=== PATIENT | female | born 1960 | race Caucasian/White ===

== ENCOUNTER → 2018-07-08 13:45 | Outpatient (CLI) | payer MEDICAID, SELFPAY ==
--- NOTE | 2018-07-08 13:50 | CT_ITS ---
STUDY: CT MAXILLOFACIAL SINUSES REASON FOR EXAM: Female, 57 years old. Sinusitis. History of prior sinus surgery. RADIATION DOSAGE (If Supplied By Facility): CTDIvol = ( 33.45 ) mGy, DLP = ( 751.28 ) mGycm TECHNIQUE: The patient was scanned in a multi detector CT scanner. High resolution axial imaging was performed without the administration of intravenous contrast material. Sagittal and coronal images were reconstructed. Individualized dose optimization techniques were used for this CT. COMPARISON: None. FINDINGS: FRONTAL SINUSES: Normal aeration, without mucosal inflammatory disease. ETHMOIDAL SINUSES: Mild degree of mucosal thickening of the ethmoid sinuses bilaterally. MAXILLARY SINUSES: Normal aeration, without mucosal inflammatory disease. SPHENOIDAL SINUSES: Normal aeration, without mucosal inflammatory disease. There is patency of the bilateral maxillary infundibuli with normal uncinate processes, ethmoid bullae, and hiatus semilunaris. Normal bilateral middle turbinates. Normal bilateral inferior turbinates. Normal midline nasal septum. There is patency of the bilateral nasal airways. The visualized osseous structures are normal. The visualized bilateral orbital contents are normal. CT/Sinus/Facial Bone IMPRESSION: Mild degree of mucosal thickening of the ethmoid sinuses bilaterally. Electronically Signed: Fito Preciado MD at 15:16 EDT Tel [phone], Service support ,
== END ==
PROVIDERS: Family Provider Nurse Practitioner Adult Health; PCP Nurse Practitioner Adult Health; Referring Provider Otolaryngology Otolaryngology/Facial Plastic Surgery; Visit Provider Otolaryngology Otolaryngology/Facial Plastic Surgery
DX: J32.9 Chronic sinusitis, unspecified (principal)
CPT/HCPCS: 70486

== ENCOUNTER 2018-08-13 22:41 | Emergency (ER) | payer MEDICAID, SELFPAY ==
[2018-08-13 22:42] VITALS: BP 149/77; PULSE 92; RESP 28; TEMP 36.9; O2SAT 97; BMI 25.9
--- NOTE | 2018-08-13 23:10 | RAD_ITS ---
STUDY: X-RAY - UNILATERAL RIBS ( LEFT ) WITH CHEST REASON FOR EXAM: Female, 58 years old. Left lower back and rib pain after coughing TECHNIQUE - RIBS: 4 view(s) of the ribs. TECHNIQUE - CHEST: Single frontal view of the chest. COMPARISON: None. FINDINGS - RIBS: Minimal irregularity along the anterior left eighth rib. FINDINGS - CHEST: There is hyperinflation of the lungs consistent with chronic obstructive lung disease (COPD). There is no demonstrated pleural abnormality. Normal size heart. Normal mediastinum and shahrzad. Normal visualized pulmonary arteries. There is atherosclerotic calcification of the aortic arch with tortuosity. There are diffuse degenerative changes of the visualized thoracic spine. Mild loss of vertebral body height at the lower thoracic spine. There is demineralization of osseous structures . Normal visualized ribs, clavicles, and shoulders. There is no demonstrated abnormality of the visualized soft tissue structures of the upper abdomen. RAD/Ribs Uni Min 3V w/PA Chest IMPRESSION: RIBS: Irregularity along the left eighth rib may be due to a nondisplaced fracture versus remote injury. No acute displaced rib fractures detected. CHEST: COPD. Osteoporosis, degenerative changes, loss of vertebral body height of the lower thoracic spine. Electronically Signed: Cathie Laura MD at 0:54 EST , Service support ,
[2018-08-13] MEDS: oxyCODONE 5 MG Tablet PO (23:53)
[2018-08-13] MEDS: diazePAM 5 MG Tablet PO (23:53)
--- NOTE | 2018-08-14 00:02 | ED.VISSUMM ---
- ER Visit Summary Date of Service: 08/14/18 Chief Complaint: Back pain History of Present Illness: The patient is a 58 F who developed a back spasm after coughing while lying in bed 10 days ago. Patient states she had spasm recur again 3 days later. She has been taking ibuprofen. She states her back remains sore but she is been able to function. She twisted together car tonight and cleared her throat and felt tight spasm in her left back. She denies pain radiating into her legs. There is no direct trauma to her back. Physical Examination: Vital signs unremarkable other than respiratory rate of 28. Patient is standing at bedside. She appears uncomfortable but no acute distress. Head neck examination is unremarkable. Heart is regular rate and rhythm. Lung sounds are clear. Abdomen is soft and nontender. No palpable pulsatile masses. Back examination was reproducible tenderness in the thoracic and lumbar paraspinal muscles. There is no midline tenderness. Neuro exam reveals good strength and sensation. Test Results: Rib series with chest x-ray shows no evidence of pneumothorax. No obvious displaced rib fracture per my read. Emergency Department Course and Treatment: Patient had taken 600 mg of ibuprofen prior to arrival. She was given 1 tab of oxycodone and 5 mg of p.o. Valium. Test results are discussed with patient at bedside. She will continue ibuprofen at home and be given prescriptions for Percocet and Valium. Treatment Plan: [] Disposition: Discharge Impression: Thoracic and lumbar paraspinal spasm This note was generated with [employer] dictation software. It may contain incorrect words, spelling, and punctuation that were not noted in review of the chart prior to signing ED Disposition - Plan for ED Patient: Chief Complaint: Back Referrals: Radha Blakely NP-C [Primary Care Provider] -
--- NOTE | 2018-08-14 00:05 | ED.DCSUM_ITS ---
- ER Visit Summary Date of Service: 08/14/18 Chief Complaint: Back pain History of Present Illness: The patient is a 58 F who developed a back spasm after coughing while lying in bed 10 days ago. Patient states she had spasm recur again 3 days later. She has been taking ibuprofen. She states her back remains sore but she is been able to function. She twisted together car tonight and cleared her throat and felt tight spasm in her left back. She denies pain radiating into her legs. There is no direct trauma to her back. Physical Examination: Vital signs unremarkable other than respiratory rate of 28. Patient is standing at bedside. She appears uncomfortable but no acute di stress. Head neck examination is unremarkable. Heart is regular rate and rhythm. Lung sounds are clear. Abdomen is soft and nontender. No palpable pulsatile masses. Back examination was reproducible tenderness in the thoracic and lumbar paraspinal muscles. There is no midline tenderness. Neuro exam reveals good strength and sensation. Test Results: Rib series with chest x-ray shows no evidence of pneumothorax. No obvious displaced rib fracture per my read. Emergency Department Course and Treatment: Patient had taken 600 mg of ibuprofen prior to arrival. She was given 1 tab of oxycodone and 5 mg of p.o. Valium. Test results are discussed with patient at bedside. She will continue ibuprofen at home and be given prescriptions for Percocet and Valium. Treatment Plan: [] Disposition: Discharge Impression: Thoracic and lumbar paraspinal spasm This note was generated with Tractive dictation software. It may contain incorrect words, spelling, and punctuation that were not noted in review of the chart prior to signing ED Disposition - Plan for ED Patient: Chief Complaint: Back Referrals: Radha Blakely, LEONARDA-C [Primary Care Provider] -
--- NOTE | 2018-08-14 00:05 | ED.DEP ---
ED Disposition - Plan for ED Patient: Disposition: Home or Assisted Living Chief Complaint: Back Instructions: ED Spasm Back No Trauma Prescriptions: Oxycodone HCl/Acetaminophen [Percocet 5/325] 1 tablet PO Q6H PRN PRN 3 Days #12 tablet PRN Reason: Pain Diazepam [Valium] 5 mg PO Q8 PRN #10 tablet PRN Reason: Muscle Spasm Referrals: Radha Blakely NP-C [Primary Care Provider] - 1-2 Weeks
[2018-08-14 00:37] VITALS: BP 141/72; PULSE 67; RESP 18; O2SAT 97
== END 2018-08-14 00:38 | disposition home or self-care (01) ==
PROVIDERS: Emergency Provider Emergency Medicine; Family Provider Family Medicine; PCP Family Medicine
DX: M62.830 Muscle spasm of back (principal); Z72.0 Tobacco use
CPT/HCPCS: 71101; 99283

== ENCOUNTER → 2018-10-25 16:20 | Outpatient (CLI) | payer MEDICAID, SELFPAY | PROVIDERS: Family Provider Family Medicine; PCP Family Medicine; Referring Provider Otolaryngology Otolaryngology/Facial Plastic Surgery; Visit Provider Otolaryngology Otolaryngology/Facial Plastic Surgery | DX: J02.9 Acute pharyngitis, unspecified (principal); J32.9 Chronic sinusitis, unspecified | CPT/HCPCS: 87070 ==

== ENCOUNTER → 2019-01-10 | Outpatient (CLI) | payer MEDICAID, SELFPAY ==
[2019-01-10 14:15] LABS: Absolute Lymphocyte Count 2.82 X10^3/ul (0.83-4.51); Absolute Neutrophil Count 7.4 X10^3/uL (2.0-7.7); Basophil# 0.04 X10^3/uL; Basophil% 0.3 % (0-1); Eosinophil# 0.38 X10^3/uL; Eosinophils% 3.3 % (0-5); Hematocrit 43.4 % (37-47); Hemoglobin 14.3 g/dl (12.0-15.0); Lymphocyte # 2.82 X10^3/ul (4.0); Lymphocyte % 24.6 % (19-41); Mean Corp Hgb Conc 32.9 g/gl (32-36); Mean Corpuscular Hgb 29.2 pg (27.0-32.0); Mean Corpuscular Volume 88.8 fL (81-99); Mean Platelet Vol. 10.1 fl (6.2-12.0); Monocyte# 0.78 X10^3/uL; Monocyte% 6.8 % (0-10); Neutrophil # 7.43 X10^3/uL (2.7-7.7); Neutrophil % 64.7 % (47-70); POSITIVE COUNT NO; POSITIVE DIFFERENTIAL NO; POSITIVE MORPHOLOGY NO; Platelet Count 283 K/mm3 (150-450); RBC Distribution Width CV 15.1 % (11.6-14.6); RBC Distribution Width SD 48.9 fl (35.1-43.9); Red Blood Count 4.89 M/mm3 (4.2-5.4); White Blood Count 11.5 K/mm3 (4.4-11.0)
[2019-01-10 14:39] LABS: ALB/GLOB Ratio 1.2 RATIO (0.9-2.4); AST(SGOT) 13 U/L (15-37); Alanine Aminotransfer ALT/SGPT 18 U/L (13-56); Albumin, Serum 3.9 g/dL (3.2-5.0); Alkaline Phosphatase 57 U/L (45-117); Anion Gap 8 (5-15); BUN 13 mg/dL (7-18); BUN/Creat Ratio 16.2 RATIO (10-20); Calcium,Total 8.4 mg/dL (8.5-10.1); Chloride 106 mmol/L (98-107); EST Glomerular Filtration Rate 78 mL/min (>60); Est Glom Filt Rate - Afr Amer 95 mL/min (>60); Globulin 3.3 g/dL (2.2-4.2); Glucose 88 mg/dL (74-106); Potassium 3.7 mmol/L (3.5-5.1); Protein, Total 7.2 g/dL (6.4-8.2); Sodium Level 139 mmol/L (136-145); Thyroid Stim Hormone (TSH) 1.79 uIU/mL (0.358-3.74)
== END | disposition home or self-care (01) ==
LOC: BFHLAB 11:29
PROVIDERS: Family Provider Family Medicine; PCP Family Medicine; Visit Provider Family Medicine
DX: G47.00 Insomnia, unspecified (principal); R53.83 Other fatigue; J30.2 Other seasonal allergic rhinitis
CPT/HCPCS: 36415; 80053; 84443; 85025

== ENCOUNTER → 2019-01-30 14:42 | Outpatient (CLI) | payer MEDICAID, SELFPAY ==
[2019-02-04 16:13] LABS: HPV Reflexed? NOT INDICATED
== END ==
PROVIDERS: Family Provider Family Medicine; PCP Family Medicine; Visit Provider Family Medicine
DX: Z12.4 Encounter for screening for malignant neoplasm of cervix (principal)
CPT/HCPCS: 88175; G0145

== ENCOUNTER → 2019-03-10 | Outpatient (CLI) | payer MEDICAID, SELFPAY | END | disposition home or self-care (01) | LOC: LABSPEC 15:30 | PROVIDERS: Family Provider Family Medicine; PCP Family Medicine; Referring Provider Otolaryngology Otolaryngology/Facial Plastic Surgery; Visit Provider Otolaryngology Otolaryngology/Facial Plastic Surgery | DX: J02.9 Acute pharyngitis, unspecified (principal) | CPT/HCPCS: 87070 ==

== ENCOUNTER → 2019-04-07 | Outpatient (CLI) | payer MEDICAID, SELFPAY ==
[2019-03-24 13:20] VITALS: BMI 25.9
== END | disposition home or self-care (01) ==
LOC: LABSPEC 15:34
PROVIDERS: Family Provider Family Medicine; PCP Family Medicine; Referring Provider Otolaryngology Otolaryngology/Facial Plastic Surgery; Visit Provider Otolaryngology Otolaryngology/Facial Plastic Surgery
DX: J32.9 Chronic sinusitis, unspecified (principal); J02.9 Acute pharyngitis, unspecified
CPT/HCPCS: 87070

== ENCOUNTER → 2019-09-01 11:05 | Outpatient (CLI) | payer MEDICAID, SELFPAY ==
[2019-03-24 13:20] VITALS: BMI 25.9
--- NOTE | 2019-09-01 11:08 | US_ITS ---
STUDY: ULTRASOUND OF THE FEMALE PELVIS - COMPLETE REASON FOR EXAM: Female, 59 years old. Left lower quadrant pain. LMP: Unknown. TECHNIQUE: Transabdominal. The patient refused transvaginal exam. TECHNICAL QUALITY: Limited. Examination limited by bowel gas. COMPARISON: None. FINDINGS: The uterus is anteverted and is tilted to the left side of the pelvis. The uterus measures 4.9 x 3.7 x 2.5 cm. Normal uterine cervix. The endometrium is not visualized. Suboptimally seen uterine myometrium with nonspecific diffuse heterogeneity. I.U.D. - The patient does not have an I.U.D. Bilateral ovaries are not visualized. There is no fluid in the cul-de-sac. The pre void volume of the bladder was 69.8 ml. US/Pelvic (Non ) IMPRESSION: Suboptimal exam with only small part of the uterus seen. Recommend follow-up with MRI of the pelvis in nonacute setting. Electronically Signed: Keyana Cochran MD at 22:59 EST , Service support ,
== END ==
PROVIDERS: Family Provider Family Medicine; PCP Family Medicine; Referring Provider Family Medicine; Visit Provider Family Medicine
DX: R10.32 Left lower quadrant pain (principal)
CPT/HCPCS: 76856

== ENCOUNTER → 2020-11-17 12:35 | Outpatient (CLI) | payer MEDICAID, SELFPAY ==
[2019-03-24 13:20] VITALS: BMI 25.9
--- NOTE | 2020-11-17 12:39 | RAD_ITS ---
STUDY: X-RAY CHEST REASON FOR EXAM: Female, 60 years old. sob, COVID neg TECHNIQUE: Frontal and lateral views of the chest. COMPARISON: None. FINDINGS: There is hyperinflation of the lungs consistent with chronic obstructive lung disease (COPD). There is no demonstrated pleural abnormality. Normal size heart. Normal mediastinum and shahrzad. Normal visualized pulmonary arteries. Normal visualized aortic arch and descending thoracic aorta. There is an increased kyphosis of the thoracic spine. There is degenerative osteoarthritis of the bilateral shoulders. There is no demonstrated abnormality of the visualized soft tissue structures of the upper abdomen. RAD/Chest PA and Lateral IMPRESSION: Degenerative changes, as described above. No demonstrated acute cardiopulmonary process. Electronically Signed: Oumar Gleason MD at 2:36 EST Tel , Service support ,
[2020-11-17 15:13] LABS: Absolute Lymphocyte Count 2.74 X10^3/uL (0.83-4.51); Basophil# 0.07 X10^3/uL; Basophil% 0.7 % (0-1); Eosinophil# 0.26 X10^3/uL; Eosinophils% 2.7 % (0-5); Hematocrit 42.1 % (37-47); Hemoglobin 13.7 g/dL (12.0-15.0); Lymphocyte # 2.74 X10^3/ul (4.0); Lymphocyte % 28.1 % (19-41); Mean Corp Hgb Conc 32.5 g/dL (32-36); Mean Corpuscular Hgb 28.4 pg (27.0-32.0); Mean Corpuscular Volume 87.3 fL (81-99); Mean Platelet Vol. 10.5 fl (6.2-12.0); Monocyte# 0.63 X10^3/uL; Monocyte% 6.5 % (0-10); NRBC Flagged by Analyzer 0 % (0-5); Neutrophil # 6.03 X10^3/uL (2.7-7.7); Neutrophil % 61.7 % (47-70); Platelet Count 310 K/mm3 (150-450); RBC Distribution Width CV 14.4 % (11.6-14.6); Red Blood Count 4.82 M/mm3 (4.2-5.4); White Blood Count 9.8 K/mm3 (4.4-11.0)
[2020-11-17 16:33] LABS: Thyroid Stim Hormone (TSH) 1.43 uIU/mL (0.358-3.74)
== END ==
PROVIDERS: PCP Family Medicine; Referring Provider Family Medicine; Visit Provider Family Medicine
DX: J40 Bronchitis, not specified as acute or chronic (principal); R53.83 Other fatigue
CPT/HCPCS: 36415; 71046; 84443; 85025

== ENCOUNTER → 2021-09-07 15:29 | Outpatient (CLI) | payer MEDICAID, SELFPAY | PROVIDERS: PCP Family Medicine; Visit Provider Otolaryngology Otolaryngology/Facial Plastic Surgery | DX: J32.8 Other chronic sinusitis (principal) | CPT/HCPCS: 87070; 87205 ==

== ENCOUNTER → 2021-09-14 15:27 | Outpatient (CLI) | payer MEDICAID, SELFPAY | PROVIDERS: PCP Family Medicine; Referring Provider Family Medicine; Visit Provider Family Medicine | DX: Z20.828 Contact with and (suspected) exposure to other viral communicable diseases (principal) | CPT/HCPCS: 87635; U0005; U0003 ==

== ENCOUNTER 2022-01-03 09:33 | Outpatient (CLI) | payer MEDICAID, SELFPAY | END 2022-01-03 23:59 | disposition home or self-care (01) | LOC: LABSPEC 09:36 | PROVIDERS: PCP Family Medicine; Visit Provider Family Medicine | DX: Z20.822 Contact with and (suspected) exposure to COVID-19 (principal) | CPT/HCPCS: 87635; U0003; U0005 ==

== ENCOUNTER → 2022-01-20 | Outpatient (CLI) | payer MEDICAID, SELFPAY ==
--- NOTE | 2022-01-20 14:11 | CT_ITS ---
STUDY: LOW DOSE CT LUNG CANCER SCREENING REASON FOR EXAM: Female, 61 years old. Patient smoked 1 pack per day for 30 years. RADIATION DOSAGE (If Supplied By Facility): CTDIvol = ( 2.34 ) mGy, DLP = ( 83.19 ) mGycm TECHNIQUE: No contrast was administered. Low dose technique was utilized (average mAS-38 and kVp 120). 1.25 mm axial source images with a slice interval of 1.25-mm were reconstructed in lung windows. 2.5 mm axial source images with a slice interval of 2.5-mm were reconstructed in lung windows. 5.0 mm axial source images with a slice interval of 5.0-mm were reconstructed in soft tissue windows. COMPARISON: None. NODULES: There is a 9.2 mm x 6 mm pleural-based nodular density in the lateral aspect of the right lower lobe as seen on axial image #20 and 15 and coronal image #51. This may represent a focal area of scarring. Emphysema: Hyperinflation. Diffuse emphysematous changes more prominent in the upper lobes. Mild scarring at the lung bases. Endobronchial lesion: None Aorta: Atherosclerotic plaque formation of the aortic arch. CORONARY ARTERIES: Coronary artery calcification Heart: Unremarkable Pulmonary artery: Unremarkable Mediastinal nodes: Small mediastinal lymph nodes. Other chest and abdominal findings: CT/Low Dose CT Lung Screening IMPRESSION: Lung-RADS category 3 - Continue screening with LDCT in 6 months. IMPORTANT NOTES FOR USE: ACR Lung-RADS Version 1.1 Assessment Categories Release Date: 2018 Category: Coded 0-4 bases on nodule(s) with highest degree of suspicion. Negative screen is defined as categories 1 and 2; a positive screen is defined as categories 3 and 4. Category 3 and 4A nodules that are unchanged on interval CT should be coded as category 2, and individuals returned to screening in 12 months. Category 4X: Category 3 or 4 nodules with additional imaging findings that increase the suspicion of lung cancer, such as spiculation, GGN that doubles in size in 1 year, enlarged lymph notes, etc. Category Modifiers: S (significant finding unrelated to lung cancer) Electronically Signed: Fito Preciado MD at 15:32 EDT ,
== END | disposition home or self-care (01) ==
LOC: CT 14:08
PROVIDERS: PCP Family Medicine; Referring Provider Family Medicine; Visit Provider Family Medicine
DX: F17.200 Nicotine dependence, unspecified, uncomplicated (principal)
CPT/HCPCS: 71271

== ENCOUNTER → 2023-09-13 | Outpatient (CLI) | payer MEDICAID, SELFPAY | END | disposition home or self-care (01) | LOC: LABSPEC 15:23 | PROVIDERS: PCP Family Medicine; Referring Provider Otolaryngology; Visit Provider Otolaryngology | DX: J02.9 Acute pharyngitis, unspecified (principal) | CPT/HCPCS: 87070 ==

== ENCOUNTER 2023-09-19 12:46 | Emergency (ER) | payer MEDICAID, SELFPAY ==
[2023-09-19 12:47] VITALS: BP 110/70; PULSE 100; RESP 20; TEMP 36.2; O2SAT 98; BMI 21.1
--- NOTE | 2023-09-19 14:32 | EDS_ITS ---
HPI History of Present Illness Chief Complaint: Shortness of Breath Detail of Chief Complaint: Multiple complaints Informant: patient Onset/Context/Timing Onset: Weeks (Onset before Thanksgi) Context: - (Does not recall) Timing: - (Detailed in the HPI) Quality: Pain Location: Left shoulder region Current Severity: Mild Maximum Severity: Moderate Worsened by: Nothing specific Relieved by: None thank Associated Symptoms Associated Symptoms: Pruritic rash left scapular region and anterior chest, also complains of an Narrative Narrative: Patient is a 61-year-old woman who recently saw Dr. Shalini Napier, September 04. She is present on no medication. She is a former smoker. She denies fever, chills night sweats. Denies headache, visual, ocular auditory symptoms. She denies rhinorrhea does report congestion. Denies postnasal drainage sore throat. She denies anterior posterior neck pain. Patient denies chest pain (pressure, tightness, heaviness, sharp or dull.). Patient had some shortness of breath off-and-on for some time. She also reports sinus infection was treated with levofloxacin. She presently denies facial pain or teeth pain. She does have a chronic cough. She does not have a formal diagnosis of COPD. States she quits smoking 1 to 2 months ago She denies abdominal pain, nausea, vomit diarrhea. Denies any change in color, consistency or caliber of her stool. She denies black or maroon stool. She denies blood or mucus in her stool. She denies dysuria, frequency, urgency or hematuria. However, she does report that her urine is been cloudy since yesterday. She denies low back pain or flank pain. She informed that she has something wrong with her left ear. She is states she may have had an ear infection as well. Prior similar symptoms: Yes Recent Illness/Hospitalization: No [facility] Medical History Acute otitis externa of left ear Acute sinusitis, unspecified Diarrhea Encounter for screening for COVID-19 Fatigue Hay fever Scabies Severe headache URI (upper respiratory infection) Home Medications guaifenesin 1,200 mg tablet, extended release 12 hr (Mucus-ER MAX) 1,200 mg PO BID #30 tabs 08/12/22 [Rx Last Taken Unknown] guaifenesin 400 mg tablet 400 mg PO Q4H PRN congestion #30 tabs 04/07/23 [Rx Last Taken Unknown] mometasone 0.1 % topical ointment 1 applic topical DAILY #15 grams 04/07/23 [Rx Last Taken Unknown] prednisone 20 mg tablet 60 mg (3 x 20 mg) PO DAILY #15 tabs 04/07/23 [Rx Last Taken Unknown] permethrin 5 % topical cream (Elimite) 1 applic topical Q14D 2 doses #60 grams 05/14/23 [Rx Last Taken Unknown] levofloxacin 500 mg tablet 500 mg PO DAILY #14 tabs 06/03/23 [Rx Last Taken Unknown] levofloxacin 500 mg tablet 500 mg PO DAILY #10 tabs 08/17/23 [Rx Last Taken Unknown] Allergy/AdvReac Type Severity Reaction Status Date / Time latex Allergy Rash Verified 09/19/23 12:47 Penicillins Allergy Swelling Verified 09/19/23 12:47 doxycycline AdvReac Mild Nausea Verified 09/19/23 12:47 Surgical History History of sinus surgery Social History (Updated 09/19/23 @ 14:[address] Terrell Gibbs MD) household members: none Smoking Status: Never smoker alcohol intake: never ROS ROS ED Constitutional Constitutional ED: Denies chills, fever(s), subjective, sweats or weight loss Eyes Eyes: Denies blurry vision or change in vision ENT ENT ED: Reports ear pain; Denies rhinorrhea or sore throat Cardiovascular Cardiovascular: Denies chest pain, orthopnea, palpitations, paroxysmal nocturnal dyspnea or racing heartbeat Respiratory/Chest Respiratory/Chest: Reports cough and dyspnea; Denies dyspnea on exertion, orthopnea, paroxysmal nocturnal dyspnea or sputum Gastrointestinal Gastrointestinal: Denies abdominal pain, diarrhea, melena, nausea or vomiting Genitourinary Genitourinary ED: Reports other Details: Cloudy urine ; Denies dysuria, hematuria or urinary frequency Musculoskeletal Musculoskeletal: Reports other Details: Left shoulder pain for 1 to 2 months. She states she did have x-rays that were ordered by Dr. Llanes. ; Denies arthralgias or myalgias Neurologic Neurologic: Reports weakness; Denies headache(s) or paresthesias Psychiatric Psychiatric: Denies anxiety Endocrine Endocrinology: Reports cold intolerance; Denies heat intolerance, polydipsia or polyuria Hematologic/Lymphatic Hematologic/Lymphatic: Reports systems reviewed and no addt'l complaints, except as documented EXAM Physical Exam Narrative Exam Narrative: Vital signs noted and are normal. Const Vital Signs: 09/19/23 12:47 09/19/23 14:21 Temperature 97.2 F L Temperature Source Temporal Pulse Rate 100 Respiratory Rate 20 H Respiratory Effort Normal Non-Labored Respiratory Depth Normal Respiratory Pattern Normal Blood Pressure 110/70 Blood Pressure Mean 83 Pulse Ox 98 Oxygen Delivery Method Room Air Positive well nourished and well developed General Appearance ED: well developed and NAD HEENT Reports moist mucous membranes HEENT Narrative: Head is atraumatic and normocephalic. Ears are normal. External auditory canals are normal. Right TM reveals scarring. Left TM is normal. Eyes PERRL and EOMs intact bilaterally General Eye ED: Negative for pale conjunctiva or scleral icterus Neck no lymphadenopathy, supple and no JVD General: Negative for tenderness Chest Wall inspection of chest normal and palpation of chest normal Resp normal respiratory effort and clear to auscultation bilaterally Cardio regular rate, regular rhythm, S1 normal heart sound, S2 normal heart sound and no murmurs GI normal to inspection, nondistended, normoactive bowel sounds, non-tender, non- distended and no masses; Negative for hepatosplenomegaly Palpation: soft Back/Spine no CVA tenderness Thoracic Spine / Upper Back: Negative for thoracic spinal tenderness Lumbar Spine / Lower Back: Negative for lumbar spinal tenderness Extremity normal to inspection Extremity Narrative: There is no pitting edema. There is slight swelling noted. Neuro oriented x3, CN's II-XII intact bilaterally and no sensory deficits noted Sensorium / Orientation: alert Motor Exam: strength 5/5 throughout Psych mental status grossly normal Skin No no rashes or lesions noted, no wounds and skin turgor normal Skin Narrative: Patient has a atopic dermatitis. MDM MDM MDM Narrative Medical decision making narrative: With patient complaining of cloudy urine will obtain UA to rule out UTI. CBC assess white count differential. Patient does appear pale also to assess for anemia. She has not had recent blood work. Because of reported cold intolerance fatigue and edema this nonpitting will obtain TSH to evaluate for hypothyroidism. History & Record Review Additional record(s) reviewed:: Prior ED visit (Patient last seen in the emergency room 2018 for possible skull injury. She also seen in 2016 for mus cular injury.) and Other (There are no prior labs available for review.) Lab Data Attestation: I reviewed the patient's lab results. Lab results narrative: White count is slightly elevated. There is 76% segs no bands. H is well. Comprehensive metabolic panel is unremarkable. Albumin is 3.1 which is low. UA is unremarkable. Labs: Laboratory Results - last 24 hr 09/19/23 09/19/23 14:39 14:54 WBC 11.8 H RBC 4.42 Hgb 12.4 Hct 37.8 MCV 85.5 MCH 28.1 MCHC 32.8 RDW Std Deviation 39.7 RDW Coeff of Vandana 12.7 Plt Count 399 MPV 9.3 Immature Gran % (Auto) 0.300 Neut % (Auto) 76.3 H Lymph % (Auto) 14.2 L [place] % (Auto) 7.3 Eos % (Auto) 1.4 Baso % (Auto) 0.5 Absolute Neuts (auto) 9.0 H Absolute Lymphs (auto) 1.68 Nucleated RBC % 0 Sodium 135 L Potassium 3.4 L Chloride 102 Carbon Dioxide 26.0 Anion Gap 7 BUN 8 Creatinine 0.64 Estim Creat Clear Calc 85.32 Est GFR (MDRD) Af Amer 120 Est GFR (MDRD) Non-Af 100 BUN/Creatinine Ratio 12.5 Glucose 99 Calcium 9.3 Total Bilirubin 0.50 AST 11 L ALT 14 Alkaline Phosphatase 62 Total Protein 7.5 Albumin 3.1 L Globulin 4.4 H Albumin/Globulin Ratio 0.7 L TSH 1.35 Urine Color Yellow Urine Clarity Sl. Cloudy Urine pH 7.0 Ur Specific Raymond 1.005 Urine Protein Negative Urine Glucose (UA) Normal Urine Ketones Negative Urine Occult Blood 10 H Urine Nitrite Negative Urine Bilirubin Negative Urine Urobilinogen Normal Ur Leukocyte Esterase 100 H Urine RBC 0-5 SEEN Urine WBC 0-5 SEEN Ur Squamous Epith Cells 0-5 SEEN Urine Bacteria RARE Urine Mucus 0 SEEN EKG Initial EKG: Attestation: I personally reviewed and interpreted this EKG as follows: Interpretation: Sinus Rhythm (Rate is 100. The EKG is normal. WV interval is 120 ms. Cures duration 70 ms. QT duration 346 ms. Eckert is normal.) Treatment and Re-Evaluation :: Patient was reassessed at 1611. She was informed of results. She was discharged home. She was instructed use Eucerin cream for her dry skin. Discharge Plan Triage Chief Complaint: Shortness of Breath ED Provider: Terrell Gibbs Dx/Rx/DC Orders Clinical Impression: Fatigue, AD (atopic dermatitis), Dyspnea, Chronic left shoulder pain Instructions: Managing Atopic Dermatitis (Eczema), ED Dyspnea Prescriptions: No Action Mucus-ER MAX 1,200 mg tablet extended release 12hr 1,200 mg PO BID Qty: 30 0RF prednisone 20 mg tablet 60 mg PO DAILY Qty: 15 0RF mometasone 0.1 % ointment 1 applic topical DAILY Qty: 15 0RF guaifenesin 400 mg tablet 400 mg PO Q4H PRN (Reason: congestion) Qty: 30 0RF permethrin [Elimite] 5 % cream 1 applic topical Q14D Qty: 60 0RF Rx Instructions: apply 1/2 tube from neck down leaving on for 8-14 hours before washing; repeat in 8-10 days with other half of tube levofloxacin 500 mg tablet 500 mg PO DAILY Qty: 14 0RF levofloxacin 500 mg tablet 500 mg PO DAILY Qty: 10 0RF Primary Care Provider: Monique Napier Referrals: Monique Napier MD [Primary Care Provider] - As Needed Activity Restrictions/Additional Instructions: Apply Eucerin cream to your rash 2-3 times a day for the next 2 weeks. Disposition Disposition: Home, Self Care
[2023-09-19 14:47] LABS: Absolute Lymphocyte Count 1.68 X10^3/uL (0.83-4.51); Basophil# 0.06 X10^3/uL; Basophil% 0.5 % (0-1); Eosinophil# 0.17 X10^3/uL; Eosinophils% 1.4 % (0-5); Hematocrit 37.8 % (37-47); Hemoglobin 12.4 g/dL (12.0-15.0); Lymphocyte # 1.68 X10^3/ul (0.83-4.51); Lymphocyte % 14.2 % (19-41); Mean Corp Hgb Conc 32.8 g/dL (32-36); Mean Corpuscular Hgb 28.1 pg (27.0-32.0); Mean Corpuscular Volume 85.5 fL (81-99); Mean Platelet Vol. 9.3 fl (6.2-12.0); Monocyte# 0.86 X10^3/uL; Monocyte% 7.3 % (0-10); NRBC Flagged by Analyzer 0 % (0-5); Neutrophil # 9.01 X10^3/uL (2.7-7.7); Neutrophil % 76.3 % (47-70); Platelet Count 399 K/mm3 (150-450); RBC Distribution Width CV 12.7 % (11.6-14.6); RBC Distribution Width SD 39.7 fl (35.1-43.9); Red Blood Count 4.42 M/mm3 (4.2-5.4); White Blood Count 11.8 K/mm3 (4.4-11.0)
[2023-09-19 15:00] LABS: Mucous, Urine 0 SEEN /hpf (<or=2+)
[2023-09-19 15:07] LABS: Color, Urine Yellow (Yellow); Glucose, Dipstick Normal (Normal); Ketone-Dipstick Negative (Negative); Leukocyte Esterase-Dipstick 100 /ul (Negative); Nitrite-Dipstick Negative (Negative); Occult Blood-Urine 10 /ul (Negative); Protein-Dipstick Negative (Negative); Specific Gravity, Urine 1.005 (1.002-1.030); Urine Bilirubin Dipstick Negative (Negative); Urine Clarity Sl. Cloudy (Clear); Urine Urobilinogen Normal (Normal)
[2023-09-19 15:19] LABS: Bacteria RARE /hpf (None Seen); Squamous Epithelial Cells - UA 0-5 SEEN /hpf (5-10); White Blood Cells 0-5 SEEN /hpf (0-5)
[2023-09-19 15:20] LABS: Red Blood Cells-Urine 0-5 SEEN /hpf (0-5)
[2023-09-19 15:21] LABS: ALB/GLOB Ratio 0.7 RATIO (0.9-2.4); AST(SGOT) 11 U/L (15-37); Alanine Aminotransfer ALT/SGPT 14 U/L (13-56); Albumin, Serum 3.1 g/dL (3.2-5.0); Alkaline Phosphatase 62 U/L (45-117); Anion Gap 7 (5-15); BUN 8 mg/dL (7-18); BUN/Creat Ratio 12.5 RATIO (10-20); Calcium,Total 9.3 mg/dL (8.5-10.1); Chloride 102 mmol/L (98-107); Creatinine, Serum 0.64 mg/dL (0.55-1.02); EST Glomerular Filtration Rate 100 mL/min (>60); Est Glom Filt Rate - Afr Amer 120 mL/min (>60); Estimated Creatinine Clearance 85.32 ml/min; Globulin 4.4 g/dL (2.2-4.2); Glucose 99 mg/dL (74-106); Potassium 3.4 mmol/L (3.5-5.1); Protein, Total 7.5 g/dL (6.4-8.2); Sodium Level 135 mmol/L (136-145); Thyroid Stim Hormone (TSH) 1.35 uIU/mL (0.358-3.74)
[2023-09-19 16:00] VITALS: RESP 16
== END 2023-09-19 16:35 | disposition home or self-care (01) ==
PROVIDERS: Emergency Provider Emergency Medicine; PCP Family Medicine; Visit Provider Emergency Medicine
DX: L20.9 Atopic dermatitis, unspecified (principal); R53.83 Other fatigue; G89.29 Other chronic pain; M25.512 Pain in left shoulder; R06.02 Shortness of breath; Z87.891 Personal history of nicotine dependence; H92.02 Otalgia, left ear
CPT/HCPCS: 80053; 81001; 84443; 85025; 93005; 99283; A4216

== ENCOUNTER 2023-12-02 15:01 | Emergency (ER) | payer MEDICAID, SELFPAY ==
[2023-12-02] VITALS (11 sets, daily range): BP systolic 130–165; BP diastolic 80–95; PULSE 100–128; RESP 18–26; TEMP 36.2–36.9; O2SAT 89–98; BMI 20.5
--- NOTE | 2023-12-02 15:19 | EKG12_ITS ---
Test Reason : Blood Pressure : / mmHG Vent. Rate : 098 BPM Atrial Rate : 098 BPM P-R Int : 128 ms QRS Dur : 078 ms QT Int : 366 ms P-R-T Axes : 079 072 068 degrees QTc Int : 467 ms Normal sinus rhythm Nonspecific ST abnormality Abnormal ECG Confirmed by Ad Rodriguez ([id number]), supervising editor trailer HERMINIO ODEN ([id number]) on 12/04/2023 7:14:50 AM Referred By: Confirmed By:Ad Rodriguez
--- NOTE | 2023-12-02 15:19 | CT_ITS ---
We are attempting to reach an attending provider to discuss findings. An addendum with communication details will be sent when the communication is complete. STUDY: CTA CHEST REASON FOR EXAM: Female, 63 years old. shortness of breath RADIATION DOSAGE (If Supplied By Facility): CTDIvol = ( 5.14 ) mGy, DLP = ( 149.66 ) mGycm TECHNIQUE: The examination was performed with the intravenous administration of IV 75mL [id number]-[id number]. Post-processing of the angiographic images was performed, with multiplanar reformation and 3D reconstruction. Individualized dose optimization techniques were used for this CT. COMPARISON: 01/20/2022 FINDINGS: Normal enhancement of the main pulmonary artery and right and left pulmonary arteries. Normal enhancement of the bilateral peripheral pulmonary arteries. There is no demonstrated pulmonary embolism. Normal thoracic aorta and visualized great vessels. There is no demonstrated aortic dissection. Normal heart and pericardium. Normal mediastinum. 5.5 x 8.5 cm mass of the hilum of the left lung with encasement and significant narrowing of the left main pulmonary artery and proximal ascending and descending pulmonary arteries worrisome for bronchogenic carcinoma. Mass is associated with significant invasion of the aorticopulmonary window of the mediastinum.. Normal visualized trachea and bronchi. The lungs are well expanded. Moderate emphysema. No change in a focal scarring in the inferior right lower lobe laterally. Normal pleura. Normal chest wall structures. Mild dextroscoliosis of the thoracic spine with degenerative disc disease. Normal visualized upper abdomen. CT/CTA Chest W/WO Contrast IMPRESSION: 1. No CT evidence of pulmonary embolism. 2. Moderate emphysema with a large left hilar mass worrisome for bronchogenic carcinoma with encasement and significant narrowing of the left main pulmonary artery and mediastinal invasion of the aorticopulmonary window. Electronically Signed: Marcus Asher MD at 18:32 EDT ,
--- NOTE | 2023-12-02 15:31 | EDS_ITS ---
<Statement entered by Jill Wade MD - 12/02/23 20:38> I have personally performed a face to face assessment of the patient and have reviewed the LEONEL Note. Patient presents secondary to shortness of breath. She states that she has had shortness of breath since August, but has gotten significantly worse in the past week. She reports significant shortness of breath with exertion just to walk from 1 room to another. She denies chest pain, but states she does get pain in the left side of her neck. Patient has history of previous smoking. Patient sitting upright in bed no acute distress. Head and neck examination unremarkable. Heart is slightly tachycardic and regular. Lung sounds are grossly clear bilaterally. Patient does have a mobile, 3 cm round lesion over the left lower ribs in the soft tissue. No overlying skin change. Abdomen is soft nontender. EKG is sinus rhythm at 98 bpm. No obvious ischemia. Lab work unremarkable. CTA of the chest is obtained that shows a large left perihilar mass that encases the left main pulmonary artery causing narrowing. Test results are discussed with the patient. I recommended transfer to facility with CT surgery available should she need pulmonary artery stenting or biopsy. She initially refused and was going to sign out AMA. She was ambulated prior to leaving and her heart rate went up into the high 120s with ambulation. Her O2 sat maintained at 94%. Patient was able to make some phone calls and now agrees to transfer. Patient has been accepted at in [place] and I am told they do have beds available. Transportation will be set up once bed is assigned. HPI History of Present Illness Chief Complaint: Shortness of Breath Narrative Narrative: Patient presenting today due to shortness of breath that she has had intermittently since August. She reports that her symptoms are worse with exertion. Her symptoms have been worse over this past week, especially since last night. She reports that she has a longstanding tobacco use history, she quit smoking in July. She had been smoking a pack per day for a long time. She reports that she has had pain to the right side of her throat since August. She has had a dry cough and occasionally does cough off blood-tinged mucus. She denies any fevers, chills, chest pain, history of blood clots, recent surgery/procedures/travel/immobilization. She denies any history of COPD or asthma. [facility] Medical History Acute otitis externa of left ear Acute sinusitis, unspecified Diarrhea Encounter for screening for COVID-19 Fatigue Hay fever Scabies Severe headache URI (upper respiratory infection) Home Medications mometasone 0.1 % topical ointment 1 applic topical DAILY #15 grams 04/07/23 [Rx Last Taken Unknown] albuterol sulfate 90 mcg/actuation aerosol inhaler 2 puff inhalation Q6H PRN shortness of breath or wheezing #6.7 grams 10/13/23 [Rx Last Taken Unknown] levofloxacin 500 mg tablet 500 mg PO DAILY #7 tabs 11/17/23 [Rx Last Taken Unknown] Allergy/AdvReac Type Severity Reaction Status Date / Time [place] [facility] [place]ergy Shortness Verified 12/02/23 15:03 of breath latex Allergy Rash Verified 12/02/23 15:02 Penicillins Allergy Swelling Verified 12/02/23 15:02 doxycycline AdvReac Mild Nausea Verified 12/02/23 15:02 Surgical History History of sinus surgery Social History household members: none Smoking Status: Never smoker alcohol intake: never ROS ROS ED Constitutional Constitutional ED: Denies chills or fever(s) Cardiovascular Cardiovascular: Denies chest pain or palpitations Respiratory/Chest Respiratory/Chest: Reports cough, dyspnea and dyspnea on exertion Gastrointestinal Gastrointestinal: Denies abdominal pain, nausea or vomiting Musculoskeletal Musculoskeletal: Denies arthralgias or myalgias Integumentary Denies rash Neurologic Neurologic: Denies weakness EXAM Physical Exam Const Vital Signs: 12/02/23 15:03 12/02/23 15:47 12/02/23 16:06 Temperature 97.1 F L 97.8 F Temperature Source Temporal Temporal Pulse Rate 104 H 101 H Respiratory Rate 24 H 18 Respiratory Effort Normal Non-Labored Short of Breath Accessory Muscle Use Respiratory Depth Shallow Respiratory Pattern Tachypnea Blood Pressure 145/89 H 130/81 H Blood Pressure Mean 107 97 Pulse Ox 98 96 Oxygen Delivery Method Room Air Room Air 12/02/23 17:06 12/02/23 18:58 12/02/23 19:01 Temperature 97.9 F 98.0 F 98.0 F Temperature Source Temporal Temporal Pulse Rate 100 103 H 103 H Respiratory Rate 18 18 18 Respiratory Effort Respiratory Depth Respiratory Pattern Blood Pressure 151/95 H 130/81 H 130/81 H Blood Pressure Mean 113 97 97 Pulse Ox 96 96 95 Oxygen Delivery Method Room Air Room Air 12/02/23 19:21 12/02/23 20:40 Temperature 98.4 F Temperature Source Oral Pulse Rate 116 H Respiratory Rate 18 Respiratory Effort Respiratory Depth Respiratory Pattern Blood Pressure 164/91 H Blood Pressure Mean 115 Pulse Ox 96 95 Oxygen Delivery Method Room Air Room Air Positive well nourished, well developed and no apparent distress General Appearance ED: well developed HEENT Reports normocephalic and head/scalp atraumatic Mouth ED: Yes moist mucous membranes normal Eyes PERRL and EOMs intact bilaterally Neck full ROM and supple Chest Wall inspection of chest normal Resp clear to auscultation bilaterally Resp Narrative: tachypnea Cardio regular rate and regular rhythm GI soft to palpation, non-tender, non-distended and no masses Back/Spine normal ROM and normal to inspection Extremity normal to inspection and full ROM Neuro oriented x3, CN's II-XII intact bilaterally, moves all extremities, no focal motor deficits and no sensory deficits noted Sensorium / Orientation: awake and alert Psych mental status grossly normal and thought process normal Skin no rashes or lesions noted and no wounds MDM MDM MDM Narrative Medical decision making narrative: Patient presenting due to shortness of breath that is worsened with exertion that she has had intermittently since August. It did acutely worsen this week. On initial exam she is tachycardic and tachypneic. She is not hypoxic. No previous history of PE, but CT will be obtained to rule this out as well as mass, infiltrate, and other cardiopulmonary abnormality. Labs will be obtained. CT does show a large left hilar mass that is worrisome for bronchogenic carcinoma with encasement and significant narrowing of the left main pulmonary artery. There are concerns that patient's pulmonary artery may need stented, therefore she would require transfer. We did speak with [facility], they are accepting and transfer is pending. Lab Data Attestation: I reviewed the patient's lab results. Lab results narrative: WBC 16.8, H&H 10.5 and 35.2, platelet count 527, potassium 3.4 Labs: Laboratory Results - last 24 hr 12/02/23 15:39 WBC 16.8 H RBC 4.25 Hgb 10.5 L Hct 35.2 L MCV 82.8 MCH 24.7 L MCHC 29.8 L RDW Std Deviation 42.7 RDW Coeff of Vandana 14.3 Plt Count 527 H MPV 10.0 Immature Gran % (Auto) 0.500 Neut % (Auto) 77.7 H Lymph % (Auto) 10.2 L Lyman % (Auto) 6.1 Eos % (Auto) 4.8 Baso % (Auto) 0.7 Absolute Neuts (auto) 13.0 H Absolute Lymphs (auto) 1.71 Nucleated RBC % 0 Sodium 136 Potassium 3.4 L Chloride 101 Carbon Dioxide 27.0 Anion Gap 8 BUN 8 Creatinine 0.63 Estim Creat Clear Calc 87.18 Est GFR (MDRD) Af Amer 124 Est GFR (MDRD) Non-Af 102 BUN/Creatinine Ratio 12.7 Glucose 95 Calcium 9.3 Troponin I High Sens 4 Radiography Diagnostic Testing: Clinical Impression(s) from Imaging Studies Chest CTA 12/02/23 15:19 IMPRESSION: 1. No CT evidence of pulmonary embolism. 2. Moderate emphysema with a large left hilar mass worrisome for bronchogenic carcinoma with encasement and significant narrowing of the left main pulmonary artery and mediastinal invasion of the aorticopulmonary window. Electronically Signed: Marcus Asher MD at 18:32 EDT Reading Location ID and State: [id number] / tydy Tel , Service support , ADDENDUM: 12/02/23 [id number] IMPRESSION: 1. No CT evidence of pulmonary embolism. 2. Moderate emphysema with a large left hilar mass worrisome for bronchogenic carcinoma with encasement and significant narrowing of the left main pulmonary artery and mediastinal invasion of the aorticopulmonary window. N.B. : The above Results were Read Back by Marcus Asher MD to Claudia Wade MD, and understanding confirmed on 12/02/2023 18:40:18 (ET). Electronically Signed: Marcus Asher MD at 18:32 EDT , EKG Initial EKG: Comments: 98 bpm, normal sinus rhythm, no ST elevation, reviewed and interpreted by attending ED physician Discharge Plan Triage Chief Complaint: Shortness of Breath ED Midlevel Provider: Angie Muhammad ED Provider: Jill Wade Dx/Rx/DC Orders Clinical Impression: Shortness of breath, Lung mass Instructions: ED Dyspnea Prescriptions: No Action mometasone 0.1 % ointment 1 applic topical DAILY Qty: 15 0RF albuterol sulfate 90 mcg/actuation HFA aerosol inhaler 2 puff inhalation Q6H PRN (Reason: shortness of breath or wheezing) Qty: 6.7 0RF levofloxacin 500 mg tablet 500 mg PO DAILY Qty: 7 0RF Other Ambulatory Orders: Fast Pass: Oncology Referral [facility] (Routine) Facility: [facility] - Location: [facility] Ordered By: Angie Muhammad Primary Care Provider: Monique Napier Referrals: Monique Napier MD [Primary Care Provider] - 3-5 Days Activity Restrictions/Additional Instructions: Please follow-up with the oncology group. Return for any worsening of your symptoms. Disposition Disposition: Home, Self Care
[2023-12-02 15:52] LABS: Absolute Lymphocyte Count 1.71 X10^3/uL (0.83-4.51); Basophil# 0.11 X10^3/uL; Basophil% 0.7 % (0-1); Eosinophil# 0.81 X10^3/uL; Eosinophils% 4.8 % (0-5); Hematocrit 35.2 % (37-47); Hemoglobin 10.5 g/dL (12.0-15.0); Lymphocyte # 1.71 X10^3/ul (0.83-4.51); Lymphocyte % 10.2 % (19-41); Mean Corp Hgb Conc 29.8 g/dL (32-36); Mean Corpuscular Hgb 24.7 pg (27.0-32.0); Mean Corpuscular Volume 82.8 fL (81-99); Monocyte# 1.02 X10^3/uL; Monocyte% 6.1 % (0-10); NRBC Flagged by Analyzer 0 % (0-5); Neutrophil # 13.03 X10^3/uL (2.7-7.7); Neutrophil % 77.7 % (47-70); Platelet Count 527 K/mm3 (150-450); RBC Distribution Width CV 14.3 % (11.6-14.6); RBC Distribution Width SD 42.7 fl (35.1-43.9); Red Blood Count 4.25 M/mm3 (4.2-5.4); White Blood Count 16.8 K/mm3 (4.4-11.0)
[2023-12-02 16:03] LABS: Anion Gap 8 (5-15); BUN 8 mg/dL (7-18); BUN/Creat Ratio 12.7 RATIO (10-20); Calcium,Total 9.3 mg/dL (8.5-10.1); Chloride 101 mmol/L (98-107); Creatinine, Serum 0.63 mg/dL (0.55-1.02); EST Glomerular Filtration Rate 102 mL/min (>60); Est Glom Filt Rate - Afr Amer 124 mL/min (>60); Estimated Creatinine Clearance 87.18 ml/min; Glucose 95 mg/dL (74-106); Potassium 3.4 mmol/L (3.5-5.1); Sodium Level 136 mmol/L (136-145); Troponin-I HS 4 pg/mL (3.0-54.0)
[2023-12-02] MEDS: Ibuprofen 200 MG Tablet 400 MG PO (23:41)
[2023-12-03] MEDS: Morphine 4 MG/ML Syringe IV (01:18)
== END 2023-12-03 01:27 | disposition short-term general hospital (02) ==
PROVIDERS: Physician Assistant; Emergency Provider Emergency Medicine; PCP Family Medicine; Visit Provider Emergency Medicine
DX: R91.8 Other nonspecific abnormal finding of lung field (principal); Z87.891 Personal history of nicotine dependence; R06.02 Shortness of breath; R00.0 Tachycardia, unspecified
CPT/HCPCS: 71275; 80048; 84484; 85025; 93005; 96374; 99284; Q9967; A4216

== ENCOUNTER 2024-01-24 11:13 | Inpatient (IN) | payer MEDICAID, SELFPAY ==
[2024-01-24] VITALS (9 sets, daily range): BP systolic 105–132; BP diastolic 59–80; PULSE 115–131; RESP 17–24; TEMP 36.2–36.9; O2SAT 92–98; BMI 19.8
--- NOTE | 2024-01-24 11:47 | EKG12_ITS ---
Test Reason : SOB Blood Pressure : / mmHG Vent. Rate : 123 BPM Atrial Rate : 123 BPM P-R Int : 124 ms QRS Dur : 062 ms QT Int : 324 ms P-R-T Axes : 058 066 092 degrees QTc Int : [address] & T wave abnormality, consider inferior ischemia ST & T wave abnormality, consider anterolateral ischemia Abnormal ECG Confirmed by TAMERA WANG MD ([id number]), editor house organ HERMINIO ODEN ([id number]) on 01/25/2024 10:28:33 AM Referred By: YVONNE Confirmed By:TAMERA WANG MD
[2024-01-24 12:10] LABS: Absolute Lymphocyte Count 0.36 X10^3/uL (0.83-4.51); Absolute Neutrophil Count 21.9 X10^3/uL (2.0-7.7); Basophil# 0.03 X10^3/uL; Basophil% 0.1 % (0-1); Eosinophil# 0.05 X10^3/uL; Eosinophils% 0.2 % (0-5); Hematocrit 33.8 % (37-47); Hemoglobin 10.4 g/dL (12.0-15.0); Lymphocyte # 0.36 X10^3/ul (0.83-4.51); Lymphocyte % 1.5 % (19-41); Mean Corp Hgb Conc 30.8 g/dL (32-36); Mean Corpuscular Hgb 24.2 pg (27.0-32.0); Mean Corpuscular Volume 78.6 fL (81-99); Monocyte# 1.21 X10^3/uL; Monocyte% 5.1 % (0-10); NRBC Flagged by Analyzer 0 % (0-5); Neutrophil # 21.85 X10^3/uL (2.7-7.7); Neutrophil % 92.1 % (47-70); POSITIVE DIFFERENTIAL YES; Platelet Count 444 K/mm3 (150-450); RBC Distribution Width CV 17.2 % (11.6-14.6); RBC Distribution Width SD 48.1 fl (35.1-43.9); White Blood Count 23.7 K/mm3 (4.4-11.0)
[2024-01-24 12:11] LABS: Differential Indicated SCAN CRITERIA MET
--- NOTE | 2024-01-24 12:20 | RAD_ITS ---
INDICATION: sob EXAMINATION/TECHNIQUE: X-RAY - XR Chest 1 View COMPARISON: No relevant prior comparison study available FINDINGS: LINES/DEVICES: None. LUNGS: Prominent right aortic arch and supra hilar regions. No focal infiltrate otherwise is seen. No evidence of pleural effusions. MEDIASTINUM AND CARDIOVASCULAR STRUCTURES: Cardiac silhouette not enlarged. Central airways and mediastinal contour are unremarkable. BONES AND SOFT TISSUES: Mild levoscoliosis of the thoracic spine. RAD/Chest 1 View (Portable) IMPRESSION: Left para-aortic and suprahilar density could be due to prominent aortic arch. CT scan of the chest with contrast is recommended to rule out mass. Electronically Signed: Mickey Trotter MD at 12:43 EDT ,
[2024-01-24 12:26] LABS: AST(SGOT) 16 U/L (15-37); Alanine Aminotransfer ALT/SGPT 32 U/L (13-56); Albumin, Serum 2.1 g/dL (3.2-5.0); Alkaline Phosphatase 144 U/L (45-117); Anion Gap 7 (5-15); BUN 19 mg/dL (7-18); BUN/Creat Ratio 37.5 RATIO (10-20); Bilirubin, Direct 0.28 mg/dL (0.00-0.30); Calcium,Total 8.5 mg/dL (8.5-10.1); Chloride 95 mmol/L (98-107); Creatinine, Serum 0.51 mg/dL (0.55-1.02); EST Glomerular Filtration Rate 131 mL/min (>60); Est Glom Filt Rate - Afr Amer 158 mL/min (>60); Glucose 104 mg/dL (74-106); Potassium 4.4 mmol/L (3.5-5.1); Protein, Total 7.1 g/dL (6.4-8.2); Sodium Level 127 mmol/L (136-145); Troponin-I HS (w/2H Reflex) 3 pg/mL (3.0-54.0)
[2024-01-24] MEDS: 0.9% Normal Saline (500mL Bag) 500 ML 1000 ML IV (13:00)
[2024-01-24] MEDS: 0.9% Normal Saline (1000mL) 1,000 ML 150 ML IV (13:39)
[2024-01-24 13:42] LABS: Differential Comment SCANNED
--- NOTE | 2024-01-24 13:52 | CT_ITS ---
STUDY: CTA CHEST REASON FOR EXAM: Female, 63 years old. Increasing shortness of breath. History of lung cancer. RADIATION DOSAGE (If Supplied By Facility): CTDIvol = ( 7.78 ) mGy, DLP = ( 133.39 ) mGycm TECHNIQUE: The examination was performed with the intravenous administration of IV 100mL Isovue-370. Post-processing of the angiographic images was performed, with multiplanar reformation and 3D reconstruction. Individualized dose optimization techniques were used for this CT. COMPARISON: Comparison is made with prior examination dated December 02, 2023. Comparison is also made to a prior chest radiograph done earlier in the day. FINDINGS: Normal enhancement of the main pulmonary artery and right and left pulmonary arteries. Normal enhancement of the bilateral peripheral pulmonary arteries. There is no demonstrated pulmonary embolism. Normal thoracic aorta and visualized great vessels. There is no demonstrated aortic dissection. No significant coronary artery calcification is seen. There is a 7.6 x 4.9 cm x 7.3 cm mass in the left mediastinum extending into the left parahilar region as well as in the subcarinal region. This is suggestive of a neoplastic process with mediastinal adenopathy. There is narrowing and encasement of the left main pulmonary artery and proximal ascending and descending pulmonary arteries. The lungs are well expanded. Diffuse emphysematous changes with a changes compatible with centrilobular emphysema more prominent in the upper lobes. Normal chest wall structures. There are degenerative changes of thoracic spine. Increased kyphosis. There is evidence of a 4 cm x 6 cm mass in the right adrenal gland. 3.9 cm x 3.8 cm left adrenal mass. I also suspect retroperitoneal lymphadenopathy. Hepatomegaly. CT/CTA Chest W/WO Contrast IMPRESSION: Since prior study, there have been progression of the left hilar and left mediastinal masses with narrowing of the left pulmonary artery in lower lobe branches of the pulmonary artery. Diffuse emphysematous changes. Metastatic bilateral adrenal masses as well as findings suggestive of retroperitoneal lymphadenopathy. No evidence of a pulmonary embolism. Electronically Signed: Fito Preciado MD at 14:54 EDT ,
[2024-01-24 14:03] LABS: Reflex Troponin-HS? (from REC) Y
[2024-01-24 15:05] LABS: Troponin-I HS 3 pg/mL (3.0-54.0)
[2024-01-24 15:39] LABS: Bacteria 0 SEEN /hpf (None Seen); Mucous, Urine 0 SEEN /hpf (<or=2+); Red Blood Cells-Urine 0 SEEN /hpf (0-5)
[2024-01-24 15:49] LABS: Color, Urine Yellow (Yellow); Glucose, Dipstick Normal (Normal); Ketone-Dipstick Negative (Negative); Leukocyte Esterase-Dipstick Negative /ul (Negative); Nitrite-Dipstick Negative (Negative); Occult Blood-Urine 10 /ul (Negative); Protein-Dipstick 15 mg/dl (Negative); Urine Bilirubin Dipstick Negative (Negative); Urine Clarity Clear (Clear); Urine Urobilinogen 4 mg/dl (Normal); Urine pH 6.5 (5.0 - 8.0)
[2024-01-24 16:13] LABS: Squamous Epithelial Cells - UA 0-5 SEEN /hpf (5-10); White Blood Cells 0-5 SEEN /hpf (0-5)
--- NOTE | 2024-01-24 16:28 | EX.ED.DYSGE1 ---
HPI History of Present Illness Chief Complaint: Shortness of Breath Informant: patient Narrative Narrative: Patient presents secondary to increased shortness of breath and generalized weakness. Patient was diagnosed with lung cancer in early November. She is currently following at [facility]. It is reported that she currently has stage IV lung cancer with mets. She was supposed to go see radiation oncology at the main campus today for radiation to her brain, but was too weak to go. She has completed radiation to her chest and is currently on immunotherapy. Patient states that she has not been eating and drinking well lately and feels very weak. Friend does report that she seems more pale than normal. She is not currently on anticoagulant. [facility] Medical History (Updated 01/24/24 @ 16:[address] Jill Wade MD) Acute otitis externa of left ear Acute sinusitis, unspecified Diarrhea Encounter for screening for COVID-19 Fatigue Hay fever Lung cancer Scabies Severe headache URI (upper respiratory infection) Home Medications mometasone 0.1 % topical ointment 1 applic topical DAILY #15 grams 04/07/23 [Rx Last Taken Unknown] albuterol sulfate 90 mcg/actuation aerosol inhaler 2 puff inhalation Q6H PRN shortness of breath or wheezing #6.7 grams 10/13/23 [Rx Last Taken Unknown] levofloxacin 500 mg tablet 500 mg PO DAILY #7 tabs 11/17/23 [Rx Last Taken Unknown] Allergy/AdvReac Type Severity Reaction Status Date / Time cefad[place] [[place] [facility] [place] Allergy Shortness Verified 01/24/24 11:16 of breath latex Allergy Rash Verified 01/24/24 11:16 Penicillins Allergy Swelling Verified 01/24/24 11:16 doxycycline AdvReac Mild Nausea Verified 01/24/24 11:16 Surgical History History of sinus surgery Social History household members: none Smoking Status: Never smoker alcohol intake: never ROS ROS ED Constitutional Constitutional ED: Denies chills or fever(s) ENT ENT ED: Denies rhinorrhea Cardiovascular Cardiovascular: Reports chest pain Respiratory/Chest Respiratory/Chest: Reports dyspnea Gastrointestinal Gastrointestinal: Denies diarrhea or vomiting Genitourinary Genitourinary ED: Denies dysuria Neurologic Neurologic: Reports weakness; Denies headache(s) Psychiatric Psychiatric: Denies anxiety or depression Allergic/Immunologic Allergic/Immunologic ED: Denies mouth swelling or tongue swelling EXAM Physical Exam Const Vital Signs: 01/24/24 11:14 01/24/24 11:37 01/24/24 13:13 Temperature 97.2 F L Temperature Source Temporal Pulse Rate 131 H 117 H Respiratory Rate 20 H 22 H Respiratory Effort Short of Breath Respiratory Depth Shallow Respiratory Pattern Tachypnea Blood Pressure 105/67 131/72 H Blood Pressure Mean 79 91 Pulse Ox 92 97 Oxygen Delivery Method Nasal Cannula Nasal Cannula Nasal Cannula Oxygen Flow Rate (L/min) 2 2 2 01/24/24 15:00 Temperature Temperature Source Pulse Rate 118 H Respiratory Rate 20 H Respiratory Effort Respiratory Depth Respiratory Pattern Blood Pressure 128/65 H Blood Pressure Mean 86 Pulse Ox 96 Oxygen Delivery Method Room Air Oxygen Flow Rate (L/min) Positive cachectic General Appearance ED: cachectic Nutritional Appearance: cachectic HEENT Reports dry mucous membranes Mouth ED: Yes dry mucous membranes Mouth: dry mucous membranes Eyes EOMs intact bilaterally Chest Wall inspection of chest normal and palpation of chest normal Resp normal respiratory effort and clear to auscultation bilaterally Cardio regular rhythm Rate: tachycardic GI non-tender Palpation: soft Extremity normal to inspection Neuro oriented x3 Psych mental status grossly normal Skin Skin Narrative: Generalized weakness but no focal neurologic deficit. MDM MDM MDM Narrative Medical decision making narrative: IV line established. Labwork obtained to evaluate for leukocytosis, anemia, and electrolyte derangement. EKG obtained to evaluate for cardiac arrhythmia/ischemia. Urinalysis obtained to evaluate for infection/hematuria. IV fluids initiated. History & Record Review Discussion w/independent historian: Patient and Friend Additional record(s) reviewed:: Prior ED visit and Prior labs Lab Data Attestation: I reviewed the patient's lab results. Labs: Laboratory Results - last 24 hr 01/24/24 01/24/24 01/24/24 12:00 14:40 15:30 WBC 23.7 H RBC 4.30 Hgb 10.4 L Hct 33.8 L MCV 78.6 L MCH 24.2 L MCHC 30.8 L RDW Std Deviation 48.1 H RDW Coeff of Vandana 17.2 H Plt Count 444 MPV 9.0 Immature Gran % (Auto) 1.000 H Neut % (Auto) 92.1 H Lymph % (Auto) 1.5 L Harper % (Auto) 5.1 Eos % (Auto) 0.2 Baso % (Auto) 0.1 Absolute Neuts (auto) 21.9 H Absolute Lymphs (auto) 0.36 L Nucleated RBC % 0 Differential Comment SCANNED Sodium 127 L Potassium 4.4 Chloride 95 L Carbon Dioxide 25.0 Anion Gap 7 BUN 19 H Creatinine 0.51 L Est GFR (MDRD) Af Amer 158 Est GFR (MDRD) Non-Af 131 BUN/Creatinine Ratio 37.5 H Glucose 104 Calcium 8.5 Total Bilirubin 0.80 Direct Bilirubin 0.28 AST 16 ALT 32 Alkaline Phosphatase 144 H Troponin I High Sens 3 3 Total Protein 7.1 Albumin 2.1 L Globulin 5.0 H Urine Color Yellow Urine Clarity Clear Urine pH 6.5 Ur Specific [place] 1.010 Urine Protein 15 H Urine Glucose (UA) Normal Urine Ketones Negative Urine Occult Blood 10 H Urine Nitrite Negative Urine Bilirubin Negative Urine Urobilinogen 4 H Ur Leukocyte Esterase Negative Urine RBC 0 SEEN Urine WBC 0-5 SEEN Ur Squamous Epith Cells 0-5 SEEN Urine Bacteria 0 SEEN Urine Mucus 0 SEEN Radiography Chest X-Ray - ED: 1 View, Read by ED Physician and - (Chronic changes with mass noted near the aortic arch.) Diagnostic Testing: Clinical Impression(s) from Imaging Studies Chest X-Ray 01/24/24 12:20 IMPRESSION: Left para-aortic and suprahilar density could be due to prominent aortic arch. CT scan of the chest with contrast is recommended to rule out mass. Electronically Signed: Mickey Trotter MD at 12:43 EDT , Chest CTA 01/24/24 13:52 IMPRESSION: Since prior study, there have been progression of the left hilar and left mediastinal masses with narrowing of the left pulmonary artery in lower lobe branches of the pulmonary artery. Diffuse emphysematous changes. Metastatic bilateral adrenal masses as well as findings suggestive of retroperitoneal lymphadenopathy. No evidence of a pulmonary embolism. Electronically Signed: Fito Preciado MD at 14:54 EDT , EKG Initial EKG: Attestation: I personally reviewed and interpreted this EKG as follows: Interpretation: Sinus Tachycardia (Sinus tachycardia at 123. Lateral T wave inversions with no significant ST change. This is a new change when compared to prior EKG from December 02, 2023.) Treatment and Re-Evaluation :: CBC also white count 23.7 with 92% neutrophils. Hemoglobin is 10.4. Chemistry studies reveal slight hyponatremia with a sodium of 127. BUN is elevated at 19. Creatinine is still normal at 0.51. Alk phos is elevated at 144. Initial troponin is 3 with a repeat troponin of 3. Urinalysis reveals no evidence of acute infection. Patient is receiving IV fluids. Heart rate is currently around 115. CTA of the chest reveals progression of the left hilar and left mediastinal masses with narrowing of the left pulmonary artery and the left lobe branches. Diffuse emphysematous changes noted. Metastatic bilateral adrenal masses are noted. No evidence of pulmonary embolism. At this time patient has generalized weakness with evidence of dehydration. I do feel that she will require further hydration and stabilization of her vital signs. I do not feel that she needs emergent transfer to [place] to her oncologist. I will speak with the hospitalist. Discharge Plan Dx/Rx/DC Orders Clinical Impression: History of lung cancer, Hyponatremia, Weakness, Chest pain, Dehydration, Leukocytosis Disposition Disposition: Acute Care Hospital [facility]
--- NOTE | 2024-01-24 19:11 | PCM.HP.STD ---
HPI - General General Date of Admission: 01/24/24 Date of Service: 01/24/24 Chief Complaint: Increasing dyspnea/shortness of breath for past several days with history of lung cancer recent diagnosis HPI Gerald GUO, is a 63 F with history of recent diagnosis of lung cancer about 2 months ago came to ED for worsening shortness of breath, dyspnea at rest, feeling exhausted, very weak, dehydrated and fatigue. She also had anterior bilateral chest tightness probably from shortness of breath. Her chest tightness is nonspecific bilateral, mild 3-4/10 intensity, mainly related to breathing and pleuritic in nature. Denies fever or chills. She was diagnosed lung cancer 2 months ago by [facility] but has recently spread to brain and had appointment with radiation oncologist for brain mets in [facility] but she could not make it. She said recently she had skin metastasis on the left lower chest wall which is not painful. She had radiation for lung cancer and for last 3 weeks she is having difficulty in swallowing over lower chest/diffuse sternum along with mild pain. She is not eating or drinking much with only applesauce and some bites of food. In ED, patient was tachycardic, tachypneic on 2 L of oxygen. BP low normal 105/67-131/72. Patient further admitted for mild resuscitation with IV fluid and optimization before she can follow-up with [facility] radiation oncologist in [facility] Medical History Acute otitis externa of left ear Acute sinusitis, unspecified Diarrhea Encounter for screening for COVID-19 Fatigue Hay fever Lung cancer Scabies Severe headache URI (upper respiratory infection) Home Medications dexamethasone 1 mg tablet 1 mg PO BID 01/24/24 [History Last Taken Unknown] lidocaine 4 % topical patch (Lidocaine Pain Relief) 1 patch topical DAILY 01/24/24 [History Last Taken Unknown] oxycodone 10 mg tablet 10 mg PO Q6H PRN PRN pain 01/24/24 [History Last Taken Unknown] sodium chloride 1,000 mg soluble tablet 1,000 mg PO BID 01/24/24 [History Last Taken Unknown] Allergy/AdvReac Type Severity Reaction Status Date / Time cefadroxil [From [facility] [place] [facility]] Allergy Shortness Verified 01/24/24 11:16 of breath latex Allergy Rash Verified 01/24/24 11:16 Penicillins Allergy Swelling Verified 01/24/24 11:16 doxycycline AdvReac Mild Nausea Verified 01/24/24 11:16 Surgical History History of sinus surgery Social History household members: none Smoking Status: Never smoker alcohol intake: never ROS ROS Narrative Constitutional: Reports acute on chronic fatigue and weakness. No fever. Loss of weight, 14 pounds in 2 weeks HEENT: Reports systems reviewed and no addt'l complaints, except as documented Respiratory/Chest: Chronic shortness of breath, lung cancer. Rest as described? CVS: Denies history of cardiac disease. Gastrointestinal: Mild nausea. Dysphagia and odynophagia. Denies coffee ground emesis, hematemesis or vomiting Genitourinary: Denies burning urination or new urinary tract symptoms Musculoskeletal: Denies acute joint pain or limited range of motion. No acute injury Neurologic: Denies seizure-like symptoms. skin: No ulcer. No rash Endocrinology: Reports systems reviewed and no addt'l complaints, except as documented Hematologic/Lymphatic: Reports systems reviewed and no addt'l complaints, except as documented Rest 14 ROS are negative except as mentioned in HPI Vital Signs Vital Signs Vital Signs: 01/24/24 11:14 01/24/24 11:37 01/24/24 13:13 Temperature 97.2 F L Temperature Source Temporal Pulse Rate 131 H 117 H Respiratory Rate 20 H 22 H Respiratory Effort Short of Breath Respiratory Depth Shallow Respiratory Pattern Tachypnea Blood Pressure 105/67 131/72 H Blood Pressure Mean 79 91 Blood Pressure Source Blood Pressure Position Blood Pressure Location Pulse Ox 92 97 Oxygen Delivery Method Nasal Cannula Nasal Cannula Nasal Cannula Oxygen Flow Rate (L/min) 2 2 2 01/24/24 15:00 01/24/24 16:48 01/24/24 17:00 Temperature 98.5 F Temperature Source Pulse Rate 118 H 117 H 115 H Respiratory Rate 20 H 17 24 H Respiratory Effort Respiratory Depth Respiratory Pattern Blood Pressure 128/65 H 120/80 132/70 H Blood Pressure Mean 86 93 86 Blood Pressure Source Blood Pressure Position Blood Pressure Location Pulse Ox 96 98 Oxygen Delivery Method Room Air Oxygen Flow Rate (L/min) 01/24/24 17:50 01/24/24 18:00 01/24/24 18:24 Temperature 98.1 F 98.1 F Temperature Source Temporal Temporal Pulse Rate 116 H 116 H Respiratory Rate 24 H 24 H Respiratory Effort Labored Accessory Muscle Use Respiratory Depth Respiratory Pattern Tachypnea Blood Pressure 108/59 L 108/59 L Blood Pressure Mean 75 75 Blood Pressure Source Monitor Blood Pressure Position Supine Blood Pressure Location Left Arm Pulse Ox 97 97 Oxygen Delivery Method Nasal Cannula Nasal Cannula Nasal Cannula Oxygen Flow Rate (L/min) 2 2 2 Weight Weight: 117 lb 4.575 oz Body Mass Index (BMI) 19.8 Physical Exam Narrative General: Alert, Oriented x3, Cooperative. Very fatigued, loss of weight HEENT: Atraumatic, PERRLA, EOMI, Normocephalic Oral: Oral mucosa dry. No Gingival or Mucosal Lesions/ Ulcerations Neck: Supple, No JVD, Negative Carotid Bruits Chest wall/Lungs: Air entry diminished in bilateral lung bases. No crepitation/rhonchi Cardiovascular: Regular rate, Regular Rhythm, Normal S1, Normal S2, No M/G/R Abdomen: Bowel Sounds Present, Soft, Non Tender, Non-Distended : No dysuria. No renal angle tenderness. No suprapubic tenderness. Extremities: No edema, Capillary Refill Less than 3 Seconds Skin: No rashes, No breakdown Musculoskeletal: No Tenderness to Palpation of Joints or Extremities. Low muscle mass in extremities, paraspinal and craniofacial muscles. Loss of subcutaneous fat. Neurological: Cranial nerves II-XII grossly intact, DTR 2+/4. No acute focal neurological deficit. Psych/Mental Status: Flat affect. Results Lab / Micro Data 01/24/24 12:00 01/24/24 12:00 Labs: Laboratory Results - last 24 hr 01/24/24 12:00: WBC 23.7 H, RBC 4.30, Hgb 10.4 L, Hct 33.8 L, MCV 78.6 L, MCH 24.2 L, MCHC 30.8 L, RDW Std Deviation 48.1 H, RDW Coeff of Vandana 17.2 H, Plt Count 444, MPV 9.0, Immature Gran % (Auto) 1.000 H, Neut % (Auto) 92.1 H, Lymph % (Auto) 1.5 L, [place] % (Auto) 5.1, Eos % (Auto) 0.2, Baso % (Auto) 0.1, Absolute Neuts (auto) 21.9 H, Absolute Lymphs (auto) 0.36 L, Nucleated RBC % 0, Differential Comment SCANNED, Sodium 127 L, Potassium 4.4, Chloride 95 L, Carbon Dioxide 25.0, Anion Gap 7, BUN 19 H, Creatinine 0.51 L, Est GFR (MDRD) Af Amer 158, Est GFR (MDRD) Non-Af 131, BUN/Creatinine Ratio 37.5 H, Glucose 104, Calcium 8.5, Total Bilirubin 0.80, Direct Bilirubin 0.28, AST 16, ALT 32, Alkaline Phosphatase 144 H, Troponin I High Sens 3, Total Protein 7.1, Albumin 2.1 L, Globulin 5.0 H 01/24/24 14:40: Troponin I High Sens 3 01/24/24 15:30: Urine Color Yellow, Urine Clarity Clear, Urine pH 6.5, Ur Specific [place] 1.010, Urine Protein 15 H, Urine Glucose (UA) Normal, Urine Ketones Negative, Urine Occult Blood 10 H, Urine Nitrite Negative, Urine Bilirubin Negative, Urine Urobilinogen 4 H, Ur Leukocyte Esterase Negative, Urine RBC 0 SEEN, Urine WBC 0-5 SEEN, Ur Squamous Epith Cells 0-5 SEEN, Urine Bacteria 0 SEEN, Urine Mucus 0 SEEN Micro: Microbiology 01/24/24 12:00 Mucosa - Nose SARS-CoV-2, Influenza & RSV (PCR) - Final Imaging Radiology Impression Chest X-Ray 01/24/24 12:20 IMPRESSION: Left para-aortic and suprahilar density could be due to prominent aortic arch. CT scan of the chest with contrast is recommended to rule out mass. Electronically Signed: Mickey Trotter MD at 12:43 EDT , Chest CTA 01/24/24 13:52 IMPRESSION: Since prior study, there have been progression of the left hilar and left mediastinal masses with narrowing of the left pulmonary artery in lower lobe branches of the pulmonary artery. Diffuse emphysematous changes. Metastatic bilateral adrenal masses as well as findings suggestive of retroperitoneal lymphadenopathy. No evidence of a pulmonary embolism. Electronically Signed: Fito Preciado MD at 14:54 EDT , Assessment & Plan Assessment/Plan (1) Impaired mobility and ADLs: (2) Failure to thrive: PLAN: Plan This is a 63-year-old female being admitted for severe fatigue generalized weakness dyspnea at rest and loss of weight related to progress note for lung cancer with metastasis to brain. 1. Acute debility with failure to thrive, dyspnea at rest, impaired ADL due to progression of lung cancer: Patient is being admitted in PCU. Twelve-lead EKG shows sinus tachycardia 123 beats. QTc is 463 ms. Chest x-ray and further chest CTA was done. No demonstrated PE. Patient has started on IV fluid normal saline and will continue it. PT OT and speech and swallow evaluation. [facility] evaluation. 2. COPD/emphysematous lungs and progression of metastatic lung cancer, stage IV: Patient follows [facility] oncologist. She states that she has stage IV lung cancer with metastasis to brain and adrenals and left lower chest skin. Denies bony metastasis. Supposed to have appointment with radiation oncology for brain mets but could not make it. Chest CTA done in ED shows progression of left hilar and left mediastinal masses with narrowing of left pulmonary artery and lower lobe branch of the pulmonary artery diffuse emphysematous changes. Metastatic bilateral adrenal masses and retroperitoneal lymphadenopathy 3. Esophageal dysphagia and odynophagia: Complain of odynophagia and dysphagia over lower chest for 3 weeks after starting radiation for lung cancer. Speech/swallow evaluation. Patient was said that she should follow-up with [facility] groundwater monitoring technician for complete evaluation as she might have esophageal stenosis or stricture so that she has all her care at [address]. 4. Hypotonic hypovolemic hyponatremia: Sodium 127. Chloride 95. Potassium normal. Anion gap 7. Bicarb 25. IV fluid normal saline ordered. 5. Severe acute protein calorie malnutrition from lung cancer: [facility] consult. 6. Leukocytosis, thrombocythemia, mild microcytic anemia, pancytopenia probably from cancer/radiation but no fever seems: Chest CT does not show pneumonic consolidation. Does not have dysuria/burning with. UA also negative for leukocyte Estrace and nitrite. Urine bacteria 0, WBC 0-5 therefore no UTI. 7. DVT prophylaxis: High risk due to cancer: Lovenox 40 mg subcu daily. Bilateral SCDs. Discontinue if platelet count drops less than 50,000 or hemoglobin less than 8 g% Living will/advanced directive/end of life care: Unfortunately, the patient does not have living will or advanced directive. She does not related to power of assistant county attorney for health but states her Sister Shakila is next of kin. After discussion of benefits/risks procedures involved with full code, DNR CC arrest and DNR CC, the patient opted for full code. Advised to get living will/advanced directive PCP as soon as possible. Patient does want artificial life support including intubation, tube feed, ventilator and/chest compression, central venous catheter, vasopressor and DC shock if needed Total time spent in [id number] encounter in discussion of advanced directive 17 minutes. Microbiology Past 72 Hours 01/24/24 12:00 Mucosa - Nose SARS-CoV-2, Influenza & RSV (PCR) - Final Laboratory Results 01/24/24 12:00: WBC 23.7 H, RBC 4.30, Hgb 10.4 L, Hct 33.8 L, MCV 78.6 L, MCH 24.2 L, MCHC 30.8 L, RDW Std Deviation 48.1 H, RDW Coeff of Vandana 17.2 H, Plt Count 444, MPV 9.0, Immature Gran % (Auto) 1.000 H, Neut % (Auto) 92.1 H, Lymph % (Auto) 1.5 L, [place] % (Auto) 5.1, Eos % (Auto) 0.2, Baso % (Auto) 0.1, Absolute Neuts (auto) 21.9 H, Absolute Lymphs (auto) 0.36 L, Nucleated RBC % 0, Differential Comment SCANNED, Sodium 127 L, Potassium 4.4, Chloride 95 L, Carbon Dioxide 25.0, Anion Gap 7, BUN 19 H, Creatinine 0.51 L, Est GFR (MDRD) Af Amer 158, Est GFR (MDRD) Non-Af 131, BUN/Creatinine Ratio 37.5 H, Glucose 104, Calcium 8.5, Total Bilirubin 0.80, Direct Bilirubin 0.28, AST 16, ALT 32, Alkaline Phosphatase 144 H, Troponin I High Sens 3, Total Protein 7.1, Albumin 2.1 L, Globulin 5.0 H 01/24/24 14:40: Troponin I High Sens 3 01/24/24 15:30: Urine Color Yellow, Urine Clarity Clear, Urine pH 6.5, Ur Specific [place] 1.010, Urine Protein 15 H, Urine Glucose (UA) Normal, Urine Ketones Negative, Urine Occult Blood 10 H, Urine Nitrite Negative, Urine Bilirubin Negative, Urine Urobilinogen 4 H, Ur Leukocyte Esterase Negative, Urine RBC 0 SEEN, Urine WBC 0-5 SEEN, Ur Squamous Epith Cells 0-5 SEEN, Urine Bacteria 0 SEEN, Urine Mucus 0 SEEN Clinical Impression(s) from Imaging Studies Chest X-Ray 01/24/24 12:20 IMPRESSION: Left para-aortic and suprahilar density could be due to prominent aortic arch. CT scan of the chest with contrast is recommended to rule out mass. Chest CTA 01/24/24 13:52 IMPRESSION: Since prior study, there have been progression of the left hilar and left mediastinal masses with narrowing of the left pulmonary artery in lower lobe branches of the pulmonary artery. Diffuse emphysematous changes. Metastatic bilateral adrenal masses as well as findings suggestive of retroperitoneal lymphadenopathy. No evidence of a pulmonary embolism. Electronically Signed: Fito Preciado MD at 14:54 EDT , Charges/Coding Visit Charges Inpatient E&M: 81407 Init Hosp L3 Procedures Hospitalists Procedures: 77059 Advncd Care Plan 30 Min
[2024-01-24] MEDS: 0.9% Normal Saline (1000mL) 1,000 ML 75 ML IV (20:56)
[2024-01-24] MEDS: oxyCODONE 5 MG Tablet 10 MG PO (23:04)
[2024-01-25] VITALS (12 sets, daily range): BP systolic 96–116; BP diastolic 60–71; PULSE 105–131; RESP 18–20; TEMP 36.1–36.9; O2SAT 91–98; BMI 18.1
[2024-01-25] MEDS: oxyCODONE 5 MG Tablet 10 MG PO ×3 (06:05→18:32)
[2024-01-25 06:28] LABS: Absolute Lymphocyte Count 0.52 X10^3/uL (0.83-4.51); Absolute Neutrophil Count 17.1 X10^3/uL (2.0-7.7); Basophil# 0.02 X10^3/uL; Basophil% 0.1 % (0-1); Eosinophil# 0.08 X10^3/uL; Eosinophils% 0.4 % (0-5); Hematocrit 29.6 % (37-47); Hemoglobin 8.9 g/dL (12.0-15.0); Lymphocyte # 0.52 X10^3/ul (0.83-4.51); Lymphocyte % 2.7 % (19-41); Mean Corp Hgb Conc 30.1 g/dL (32-36); Mean Corpuscular Hgb 23.8 pg (27.0-32.0); Mean Corpuscular Volume 79.1 fL (81-99); Mean Platelet Vol. 9.1 fl (6.2-12.0); Monocyte# 1.16 X10^3/uL; Monocyte% 6.1 % (0-10); NRBC Flagged by Analyzer 0 % (0-5); Neutrophil # 17.11 X10^3/uL (2.7-7.7); Neutrophil % 89.9 % (47-70); POSITIVE DIFFERENTIAL YES; Platelet Count 354 K/mm3 (150-450); RBC Distribution Width CV 17.2 % (11.6-14.6); RBC Distribution Width SD 48.5 fl (35.1-43.9); Red Blood Count 3.74 M/mm3 (4.2-5.4)
[2024-01-25] MEDS: Lidocaine 5% Patch 1 PATCH TOPICAL (08:16)
[2024-01-25 08:25] LABS: Anion Gap 9 (5-15); BUN 15 mg/dL (7-18); BUN/Creat Ratio 31.5 RATIO (10-20); Calcium,Total 8.2 mg/dL (8.5-10.1); Chloride 97 mmol/L (98-107); Creatinine, Serum 0.48 mg/dL (0.55-1.02); EST Glomerular Filtration Rate 140 mL/min (>60); Est Glom Filt Rate - Afr Amer 170 mL/min (>60); Estimated Creatinine Clearance 100.72 ml/min; Glucose 93 mg/dL (74-106); Magnesium 1.7 mg/dL (1.6-2.6); Phosphorus 2.3 mg/dL (2.5-4.9); Potassium 3.8 mmol/L (3.5-5.1); Sodium Level 128 mmol/L (136-145)
[2024-01-25] MEDS: 0.9% Normal Saline (1000mL) 1,000 ML 75 ML IV (10:39)
[2024-01-25] MEDS: Pantoprazole Sodium 40 MG Tablet PO (10:42)
[2024-01-25] MEDS: Sodium Chloride 1 GM Tablet PO ×2 (10:42→21:16)
[2024-01-25] MEDS: Enoxaparin 40 MG/0.4 ML Syringe SC (10:43)
--- NOTE | 2024-01-25 13:25 | CASEMGMT ---
MELISSA VILLA Assessment: Face to Face with pt for initial transition planning/care coordination assessment. MELISSA VILLA introduced self and role at [facility], pt voices understanding and consents to assessment. Pt is A&O x3 and answers all questions appropriately at this time. Pt kept eyes closed throughout assessment and states she needs to rest before her xray. Pt unable to discuss a full dc plan. Care providers, pharmacy, and demographics verified/updated. Admitting Dx: SOB, tachycardic PCP:Karthikeyan Specialists:Vincenzo onc Preferred Pharmacy: [facility] Insurance: [employer] Prescription Benefit: yes LNOK: Shakila Patiño, sister Living Arrangements: Pt lives alone in a single story home with 1 step to enter. Pt reports she was I in ADL's/IADL's up until October when she was dx with lung cancer. Pt states since then she needs help and her sisters help when they can. She does her own meals. States her laundry is not getting done. Pt states she needs assistance at home. Transportation: Pt sister provides transportation. DME:Oxygen through [employer], portable tanks, walker HHC/SNF: Denies hx of Pt states she does want to return home. She declined ST eval today and has yet to be eval'd by therapy. She is aware we will see how she does with therapy to determine if HHC would be appropriate. She states she is too tired to discuss this now. MELISSA VILLA to follow therapy. Pt reports she does not have a pox and cannot afford one. Will need to provide prior to dc if pt returns home. Pt states no further concerns/needs. Advised pt to ask CM if any further question/concerns/needs arise, voices understanding. Pt Goal: Home Plan: TBD pending therapy evals and course of hospitalization Angela TORRES CM
--- NOTE | 2024-01-25 13:42 | SP.MBSS_ITS ---
Modified Barium Swallow Patient Information Study Date: 01/25/24 Study Time: 14:00 Direct Billable Minutes: 120 Total Minutes procedure & reportin Diagnosis: Acute URI J06.9, Acute cough R05.1 Referring Physician: Coreen Arshad Reason for Referral: Objectively assess swallow function, assess risk for aspiration, and determine recommendations for least restrictive diet textures and compensatory strategies to improve safety of swallow. Medical History: PMH: Acute otitis externa of left ear, Acute sinusitis, unspecified, Diarrhea, Fatigue, Hay fever, Lung cancer, Scabies, Severe headache, URI. The patient presented to [facility] ED 01/24/24 with increasing dyspnea/shortness of breath for past several days with history of lung cancer recent diagnosis. She was diagnosed lung cancer 2 months ago by [facility] with recent spread to her brain, as well as skin metastasis on the left lower chest wall. She has had radiation for lung cancer and for the last 3 weeks, and she is having difficulty in swallowing with very limited oral intake and mostly just drinks. In ED, patient was tachycardic, tachypneic on 2 L of oxygen. She was further admitted for mild resuscitation with IV fluid and optimization before she can follow-up with [facility] radiation oncologist. She was referred for ST due to swallowing difficulty. During BSE, she had coughing with liquids. SOB evident at bedside and she reports feeling it is harder to breathe when she eats/drinks. SPORTS UMPIRE recommended to continue full liquids with distant supervision and MBSS this afternoon to objectively assess swallow function to provide recommendations for LRD textures, as well as appropriate interventions. Current Diet Ordered: Full liquids Dentition: Natural Teeth and Missing Teeth Mental Status: WNL Respiratory Status: Oxygenating on 2L/M nasal cannula Penetration-Aspiration Scale Penetration-Aspiration Scale: OBJECTIVE ASSESSMENT OF SWALLOW FUNCTION (QUANTITATIVE ? PER TRIAL): PENETRATION / ASPIRATION SCALE (PARRA): 1 = does not enter airway 2 = enters airway/above vocal folds/ejected 3 = enters airway/above vocal folds/not ejected 4 = enters airway/contacts vocal folds/ejected 5 = enters airway/contacts vocal folds/not ejected 6 = enters airway/below vocal folds/ejected 7 = enters airway/below vocal folds/not ejected despite effort 8 = enters airway/below vocal folds/no effort VIDEOFLOROSCOPIC SCALE SCORE (PARRA): Grade I = aspiration of material that has penetrated into the laryngeal vestibule, intact cough reflex Grade II = aspiration < 10 % of the bolus, intact cough reflex Grade III = aspiration of < 10 % of the bolus, reduced cough reflex or aspiration of > 10 % of the bolus, intact cough reflex Grade IV = aspiration of > 10 % of the bolus, reduced cough reflex Penetration-Aspiration Scale Score Thin Liquid via teaspoon: Result: 1= does not enter airway Thin Liquid via teaspoon Trial 2: Result: 4= enters airway/contacts vocal folds/ejected Thin Liquid via small single sip: cup: Result: 4= enters airway/contacts vocal folds/ejected Thin Liquid via small single sip: cup Effortful swallow: Result: 8= enters airway/below vocal folds/no effort [place] Thick Liquid via small single sip: cup: Result: 2= enter airway/above vocal folds/ejected Pudding via teaspoon: Result: 1= does not enter airway Thin Liquid via single sip: straw: Result: 8= enters airway/below vocal folds/no effort Thin Liquid via small single sip: cup Chin tuck: Result: 4= enters airway/contacts vocal folds/ejected Thin Liquid via small single sip: cup Other: Result: 2= enter airway/above vocal folds/ejected Comment: SPORTS UMPIRE cued cough and re-swallow for this trial [place] Thick Liquid via small single sip: cup Trial 2: Result: 1= does not enter airway Oral Phase Labial Seal: No Labial Escape Tongue Control During Bolus Hold: Posterior escape of less than half of bolus Bolus Transport/Lingual Motion: Delayed initiation of tongue motion Oral Residue: Residue collection on oral structures Pharyngeal Phase Initiation of Pharyngeal Swallow: Bolus head in pyriforms Soft Palate Elevation: No bolus between soft palate and pharyngeal wall Laryngeal Elevation: Partial superior movement thyroid cart/partial apprx aryt- epig petiole Anterior Hyoid Excursion: Partial anterior movement Epiglottic Movement: Partial inversion Laryngeal Vestibule Closure at Height of Swallow: Incomplete; narrow column of air/contrast in laryngeal vestibule Pharyngoesophageal Segment Opening: Parital distension and partial duration; parital obstruction of flow Tongue Base Retraction: Narrow column of contrast between tongue base & post. pharyngeal wall Pharyngeal Residue: Collection of residue within or on pharyngeal structures Esophageal Phase Esophageal Clearance: Esophageal retention (trace retention in upper esophagus) Diagnosis/Impression Diagnosis: Moderate oropharyngeal dysphagia R13.12 Impression: The oral phase is primarily marked by... -Decreased bolus control with premature posterior loss of certain thin liquid trials to the pyriforms. -Delayed tongue motion for A-P transport. -Did not test cookie as the patient reports solids are too difficult to chew and swallow with current debility. The pharyngeal phase is primarily marked by... -Decreased airway closure due to decreased anterior hyoid excursion, decreased laryngeal elevation, and partial epiglottic inversion. -Mild pharyngeal residue secondary to decreased tongue base retraction, pharyngeal stripping wave, and UES opening/duration. -SILENT aspiration of thin liquids via cup (effortful) and straw. A cued cough and re-swallow was somewhat effective in decreasing risk for aspiration with thin liquids; however, coughing is too tiresome for the patient to implement this strategy for each sip given current debility. Recommendations Diet: Puree Textures (MOIST) and [place]-thick Liquids Comment: Meds crushed in puree Compensatory Strategies: Small Bites, Small Sips, Slow Rate, Alternate bites/solids and sips/liquids, Sitting upright and Remain sitting upright for 30 minutes after PO intake Supervision: Distant Supervision Recommend Repeat Modified Barium Swallow: Yes (Repeat MBSS 01/28/24 if deemed appropriate by SPORTS UMPIRE to determine appropriateness for diet advancement) Need for Skilled Speech Therapy Services: Yes Comment: -Train the patient in use of strategies to decrease risk for aspiration. -Ongoing assessment of diet tolerance of recommended textures. Do NOT advance liquids prior to repeat MBSS due to silent aspiration of thin. -Train the patient oropharyngeal exercise program to improve airway closure, swallow onset, and pharyngeal motility (Awa, CTAR, Effortful, Samanta). Education Completed: 1. Described result of evaluation., 2. Pt understands evaluation & agrees with goals and treatment plan. and 4. Family/caregivers understand evaluation & agree w/ goals & tx plan. Status Active ST Patient: Active Contact Information [facility] Speech Therapy:: Criss Bell M.A. [facility]-SPORTS UMPIRE? Speech-Language Pathologist?? [facility] [address]?? [place] [address]?? [email or web address]?? [phone]
--- NOTE | 2024-01-25 14:39 | PN_ITS ---
Subjective Subjective Patient seen and examined. She looked very frail and weak and admitted to feeling that way. She denied any chest pain, palpitations, dizziness, nausea, vomiting or any other symptoms. Review of systems is otherwise negative. She is on 4L of oxygen. Objective Data Objective Data Vital Signs: Vital Signs Temp Pulse Resp BP Pulse Ox O2 Del Method O2 Flow Rate 97.8 F 119 H 18 114/71 98 Nasal Cannula 4 01/25/24 14:10 01/25/24 14:10 01/25/24 14:10 01/25/24 14:10 01/25/24 14:10 01/25/24 14:11 01/25/24 14:11 Oxygen Flow Rate (L/min) 4 Oxygen Delivery Method Nasal Cannula Weight: 115 lb 11.883 oz Body Mass Index (BMI) 18.1 Intake & Output: Intake and Output for Last 24 Hours 01/23/24 01/24/24 01/25/24 23:59 23:59 23:59 Intake Total 1195 / 1195 1240 / 1240 Output Total 0 / 150 450 / 450 Balance 1195 / 1045 790 / 790 Medical Nutrition Assessment Dietitian: Malnutrition Criteria Met Start: 01/25/24 12:28 Freq: Status: Active Protocol: Document 01/25/24 12:29 AG (Rec: 01/25/24 12:29 [id number]) Nutrition Malnutrition Evidence of Malnutrition Exists Yes Malnutrition (severe): Chronic Evidenced By Suboptimal Energy Intake ( Severe),Weight Loss (Severe) Clinical Problem Chronic Disease or Condition Related Malnutrition Etiology severe malnutrition related to inadequate energy intake d/t swallowing difficulty after radiation treatments for metastatic disease Signs/Symptoms as evidenced by unintentional wt loss of 14% < 2 months, estimated PO intake meeting < 50% of estimated energy needs < 2 months, BMI 18.1 Status Active Problem Recommendation Dietitian Recommendations/Changes recommend advance diet as tolerated to regular, texture/ consistency per EMBOSSING PRESS OPERATOR APPRENTICE; will add 8 oz ensure plus high protein TID w/ meals for additional nutrition if consumed given evidence of malnutrition. If unable to advance PO diet, may need to consider alternate means of nutrition, will provide further recommendations as indicated. Lab / Micro Data 01/25/24 05:55 01/25/24 05:55 Labs: Laboratory Results - last 24 hr 01/24/24 14:40: Troponin I High Sens 3 01/24/24 15:30: Urine Color Yellow, Urine Clarity Clear, Urine pH 6.5, Ur Specific [place] 1.010, Urine Protein 15 H, Urine Glucose (UA) Normal, Urine Ketones Negative, Urine Occult Blood 10 H, Urine Nitrite Negative, Urine Bilirubin Negative, Urine Urobilinogen 4 H, Ur Leukocyte Esterase Negative, Urine RBC 0 SEEN, Urine WBC 0-5 SEEN, Ur Squamous Epith Cells 0-5 SEEN, Urine Bacteria 0 SEEN, Urine Mucus 0 SEEN 01/25/24 05:55: WBC 19.0 H, RBC 3.74 L, Hgb 8.9 L, Hct 29.6 L, MCV 79.1 L, MCH 23.8 L, MCHC 30.1 L, RDW Std Deviation 48.5 H, RDW Coeff of Vandana 17.2 H, Plt Count 354, MPV 9.1, Immature Gran % (Auto) 0.800, Neut % (Auto) 89.9 H, Lymph % (Auto) 2.7 L, [place] % (Auto) 6.1, Eos % (Auto) 0.4, Baso % (Auto) 0.1, Absolute Neuts (auto) 17.1 H, Absolute Lymphs (auto) 0.52 L, Nucleated RBC % 0, Sodium 128 L, Potassium 3.8, Chloride 97 L, Carbon Dioxide 22.0, Anion Gap 9, BUN 15, Creatinine 0.48 L, Estim Creat Clear Calc 100.72, Est GFR (MDRD) Af Amer 170, Est GFR (MDRD) Non-Af 140, BUN/Creatinine Ratio 31.5 H, Glucose 93, Calcium 8.2 L, Phosphorus 2.3 L, Magnesium 1.7 Micro: Microbiology 01/24/24 12:00 Mucosa - Nose SARS-CoV-2, Influenza & RSV (PCR) - Final Radiography Diagnostic Testing: Radiology Impression Chest CTA 01/24/24 13:52 IMPRESSION: Since prior study, there have been progression of the left hilar and left mediastinal masses with narrowing of the left pulmonary artery in lower lobe branches of the pulmonary artery. Diffuse emphysematous changes. Metastatic bilateral adrenal masses as well as findings suggestive of retroperitoneal lymphadenopathy. No evidence of a pulmonary embolism. Electronically Signed: Fito Preciado MD at 14:54 EDT , Physical Exam Const alert and oriented x3 Constitutional Narrative: very frail and weak General Appearance: cooperative HEENT normocephalic and head/scalp atraumatic Mouth: dry mucous membranes Eyes PERRL and EOMs intact bilaterally Neck no lymphadenopathy and supple Lymph Lymphatic: no lymphadenopathy noted Resp Resp Narrative: moderately diminished breath sounds bibasally, no wheezes or crackles. on 4L of oxygen by nasal canula Cardio regular rate, regular rhythm, S1 normal heart sound, S2 normal heart sound and no murmurs GI normal to inspection, nondistended, normoactive bowel sounds, soft to palpation, non-tender and non-distended Extremity normal capillary refill, no clubbing, cyanosis or edema and no calf tenderness General Extremity: no tenderness to palpation of joints or extremities Skin General Skin Exam: no breakdown Neuro CN's II-XII intact bilaterally, no focal motor deficits, no sensory deficits noted and deep tendon reflexes 2+ bilaterally Motor Exam: strength 5/5 throughout and general weakness Psych thought process normal and cooperative Appearance: appropriate Assessment & Plan Assessment/Plan (1) Failure to thrive: (2) Leukocytosis: (3) Dehydration: PLAN: Plan #Hypoxia in the setting of metastatic lung cancer * Currently on 4 L of oxygen. Follows up at [facility] and has stage IV lung cancer with mets to the brain and adrenals but no bony mets. Has not yet had radiation oncology for the mets to the brain. * CTA chest showed progressive left hilar and left mediastinal masses with na rrowing of the left pulmonary artery and branch of the pulmonary artery with diffuse emphysematous changes. * Breathing treatments with bronchodilators. Titrate oxygen to maintain saturation above 90%. * # Debility and failure to thrive in the setting of metastatic lung cancer * Patient is very weak and frail. Has not been able to eat or drink well especially after she had radiation for the lung cancer. 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 * PT OT on board. For precautions. States that she wants follow-up at [facility] with field service representative for evaluation for esophageal stenosis/stricture so that maricruz has a high cure in [address] place. * #Severe protein calorie malnutrition: BMI 17.1. Consult dietitian. Likely due to metastatic lung cancer. 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 * Speech therapy on board. Modified barium swallow today. * Patient states she will follow-up with gastroenterology at [facility] so her care all remains 1 place * #Hypotonic hypovolemic hyponatremia: Resolving with IV fluids. Sodium today is 128. #DVT prophylaxis: Lovenox Charges/Coding Visit Charges Inpatient E&M: 36356 Subs Hosp L2
--- NOTE | 2024-01-25 16:29 | CASEMGMT ---
Discharge Planning A list of?SNF & HH providers including quality and resource use data and consistent with the patient's preferred geographic region, medical needs, and insurance network was created in [facility] Guide.? This list was provided to the RN CM. Marcela López, Discharge Planning Asst.
[2024-01-26] VITALS (9 sets, daily range): BP systolic 88–118; BP diastolic 60–69; PULSE 119–130; RESP 18–20; TEMP 36.5–36.8; O2SAT 92–99; BMI 18.5
[2024-01-26] MEDS: oxyCODONE 5 MG Tablet 10 MG PO ×4 (00:35→19:59)
[2024-01-26 05:04] LABS: Absolute Lymphocyte Count 0.52 X10^3/uL (0.83-4.51); Absolute Neutrophil Count 18.6 X10^3/uL (2.0-7.7); Basophil# 0.03 X10^3/uL; Basophil% 0.1 % (0-1); Eosinophils% 0.5 % (0-5); Hematocrit 29.6 % (37-47); Hemoglobin 8.9 g/dL (12.0-15.0); Lymphocyte # 0.52 X10^3/ul (0.83-4.51); Lymphocyte % 2.5 % (19-41); Mean Corp Hgb Conc 30.1 g/dL (32-36); Mean Corpuscular Volume 79.8 fL (81-99); Mean Platelet Vol. 9.4 fl (6.2-12.0); Monocyte% 5.4 % (0-10); NRBC Flagged by Analyzer 0 % (0-5); Neutrophil # 18.58 X10^3/uL (2.7-7.7); Neutrophil % 90.5 % (47-70); POSITIVE DIFFERENTIAL YES; Platelet Count 336 K/mm3 (150-450); RBC Distribution Width CV 17.2 % (11.6-14.6); RBC Distribution Width SD 49.2 fl (35.1-43.9); Red Blood Count 3.71 M/mm3 (4.2-5.4); White Blood Count 20.5 K/mm3 (4.4-11.0)
[2024-01-26 05:21] LABS: Anion Gap 6 (5-15); BUN 14 mg/dL (7-18); Chloride 99 mmol/L (98-107); EST Glomerular Filtration Rate 172 mL/min (>60); Est Glom Filt Rate - Afr Amer 208 mL/min (>60); Estimated Creatinine Clearance 123.39 ml/min; Glucose 121 mg/dL (74-106); Potassium 3.3 mmol/L (3.5-5.1); Sodium Level 129 mmol/L (136-145)
[2024-01-26] MEDS: 0.9% Saline Lock 10 ML Syringe IV (08:42)
[2024-01-26] MEDS: KCL 40mEq in 0.9% NS 40 MEQ/1,000 ML IV.SOLN 125 MEQ IV (08:42)
--- NOTE | 2024-01-26 08:55 | CASEMGMT ---
Addendum entered by Amy Galeana 01/26/24 13:14: MELISSA VILLA reviewed therapy notes yesterday and pt will likely be able to DC home with HHC. Pt did decline to see OT today. MELISSA VILLA in to see pt in follow up. Pt resting in bed. Discussed with pt her plans when ready for discharge. Pt reports she does not know, that she has not thought about it, and closes her eyes. Pt reports that this commercial insurance underwriter can keep talking she just wants to rest. Pt reports she is not ready for DC yet. Explained to pt that we try to be proactive with DC planning. Pt reports that she is not sure yet. MELISSA VILLA gave a brief overview of HHC level of care and list was left at bedside. Did briefly discuss SNF level of care and leave a list at bedside as well in case pts functional status declines while inpatient. Pt agreeable to this commercial insurance underwriter leaving them bedside and reviewing them later after she has rested. Amy WEST, RN, CCM Original Note: MELISSA VILLA reviewed therapy notes from 01/24 and went in to speak with pt concerning HHC on discharge. Pt declined to speak with this commercial insurance underwriter. Pt reports the RN just left and she needs to get some sleep. MELISSA VILLA to follow up this afternoon, pt aware and agreeable. Amy Galeana MSN, RN, CCM
--- NOTE | 2024-01-26 10:27 | PN_ITS ---
Subjective Subjective Patient seen and examined. She still looks very frail and weak. She still coughing occasionally but is nonproductive. Review of systems otherwise negative. Objective Data Objective Data Vital Signs: Vital Signs Temp Pulse Resp BP Pulse Ox O2 Del Method O2 Flow Rate 98.3 F 126 H 19 H 112/66 94 Nasal Cannula 3 01/26/24 07:59 01/26/24 07:59 01/26/24 07:59 01/26/24 07:59 01/26/24 07:59 01/26/24 08:00 01/26/24 08:00 Oxygen Flow Rate (L/min) 3 Oxygen Delivery Method Nasal Cannula Weight: 118 lb 2.684 oz Body Mass Index (BMI) 18.5 Intake & Output: Intake and Output for Last 24 Hours 01/24/24 01/25/24 01/26/24 23:59 23:59 23:59 Intake Total 1195 / 1195 1480 / 1480 1000 / 1000 Output Total 0 / 150 450 / 450 Balance 1195 / 1045 1030 / 1030 1000 / 1000 Medical Nutrition Assessment Dietitian: Malnutrition Criteria Met Start: 01/25/24 12:28 Freq: Status: Active Protocol: Document 01/25/24 12:29 AG (Rec: 01/25/24 12:29 [id number]) Nutrition Malnutrition Evidence of Malnutrition Exists Yes Malnutrition (severe): Chronic Evidenced By Suboptimal Energy Intake ( Severe),Weight Loss (Severe) Clinical Problem Chronic Disease or Condition Related Malnutrition Etiology severe malnutrition related to inadequate energy intake d/t swallowing difficulty after radiation treatments for metastatic disease Signs/Symptoms as evidenced by unintentional wt loss of 14% < 2 months, estimated PO intake meeting < 50% of estimated energy needs < 2 months, BMI 18.1 Status Active Problem Recommendation Dietitian Recommendations/Changes recommend advance diet as tolerated to regular, texture/ consistency per LABOR RELATIONS REPRESENTATIVE; will add 8 oz ensure plus high protein TID w/ meals for additional nutrition if consumed given evidence of malnutrition. If unable to advance PO diet, may need to consider alternate means of nutrition, will provide further recommendations as indicated. Lab / Micro Data 01/26/24 04:37 01/26/24 04:37 Labs: Laboratory Results - last 24 hr 01/26/24 04:37: WBC 20.5 H, RBC 3.71 L, Hgb 8.9 L, Hct 29.6 L, MCV 79.8 L, MCH 24.0 L, MCHC 30.1 L, RDW Std Deviation 49.2 H, RDW Coeff of Vandana 17.2 H, Plt Count 336, MPV 9.4, Immature Gran % (Auto) 1.000 H, Neut % (Auto) 90.5 H, Lymph % (Auto) 2.5 L, [place] % (Auto) 5.4, Eos % (Auto) 0.5, Baso % (Auto) 0.1, Absolute Neuts (auto) 18.6 H, Absolute Lymphs (auto) 0.52 L, Nucleated RBC % 0, Sodium 1 29 L, Potassium 3.3 L, Chloride 99, Carbon Dioxide 24.0, Anion Gap 6, BUN 14, Creatinine 0.40 L, Estim Creat Clear Calc 123.39, Est GFR (MDRD) Af Amer 208, Est GFR (MDRD) Non-Af 172, BUN/Creatinine Ratio 35.0 H, Glucose 121 H, Calcium 8.0 L Micro: Microbiology 01/24/24 12:00 Mucosa - Nose SARS-CoV-2, Influenza & RSV (PCR) - Final Physical Exam Const alert and oriented x3 Constitutional Narrative: still very frail and weak General Appearance: cooperative HEENT normocephalic and head/scalp atraumatic Eyes PERRL and EOMs intact bilaterally Neck no lymphadenopathy and supple Lymph Lymphatic: no lymphadenopathy noted Resp Resp Narrative: moderately diminished breath sounds bibasally, no wheezes or crackles. on 3L of oxygen by nasal canula Cardio regular rate, regular rhythm, S1 normal heart sound, S2 normal heart sound and no murmurs GI normal to inspection, nondistended, normoactive bowel sounds, soft to palpation, non-tender and non-distended Extremity normal capillary refill, no clubbing, cyanosis or edema and no calf tenderness General Extremity: no tenderness to palpation of joints or extremities Skin General Skin Exam: no breakdown Neuro CN's II-XII intact bilaterally, no focal motor deficits, no sensory deficits noted and deep tendon reflexes 2+ bilaterally Motor Exam: strength 5/5 throughout and general weakness Psych thought process normal and cooperative Appearance: appropriate Assessment & Plan Assessment/Plan (1) Failure to thrive: (2) Leukocytosis: (3) Dehydration: PLAN: Plan #Hypoxia in the setting of metastatic lung cancer * Currently on 3 L of oxygen. Follows up at [facility] and has stage IV lung cancer with mets to the brain and adrenals but no bony mets. Has not yet had radiation oncology for the mets to the brain. * CTA chest showed progressive left hilar and left mediastinal masses with na rrowing of the left pulmonary artery and branch of the pulmonary artery with diffuse emphysematous changes. * Breathing treatments with bronchodilators. Titrate oxygen to maintain saturation above 90%. * # Debility and failure to thrive in the setting of metastatic lung cancer * Patient is very weak and frail. Still not eating or drinking well especially after she had radiation for the lung cancer. 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 * PT OT on board. For precautions. States that she wants follow-up at [facility] with global head advertiser solutions for evaluation for esophageal stenosis/stricture so that she has her care in one place * #Severe protein calorie malnutrition: BMI 17.1. Consult dietitian. Likely due to metastatic lung cancer. 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 * Speech therapy on board. Modified barium swallow today. * Patient states she will follow-up with gastroenterology at [facility] so all her care remains 1 place * #Hypotonic hypovolemic hyponatremia: Resolving with IV fluids. Sodium today is 129. Continue hydration with IVF #Hypokalemia: K is 3.3. Will replace and trend. #DVT prophylaxis: Lovenox Charges/Coding Visit Charges Inpatient E&M: 48584 Subs Hosp L2
[2024-01-26] MEDS: Lidocaine 5% Patch 1 PATCH TOPICAL (10:54)
[2024-01-26] MEDS: Enoxaparin 40 MG/0.4 ML Syringe SC (10:55)
[2024-01-26] MEDS: Pantoprazole Sodium 40 MG Tablet PO (10:55)
[2024-01-26] MEDS: Sodium Chloride 1 GM Tablet PO ×2 (10:55→20:00)
[2024-01-27] VITALS (14 sets, daily range): BP systolic 94–111; BP diastolic 50–67; PULSE 110–127; RESP 20–24; TEMP 36.4–36.7; O2SAT 92–99; BMI 19.3
[2024-01-27] MEDS: Morphine 2 MG/ML Syringe IV ×2 (00:01→07:04)
[2024-01-27] MEDS: oxyCODONE 5 MG Tablet 10 MG PO ×4 (02:06→21:39)
[2024-01-27 06:43] LABS: Absolute Lymphocyte Count 0.58 X10^3/uL (0.83-4.51); Absolute Neutrophil Count 15.6 X10^3/uL (2.0-7.7); Basophil# 0.03 X10^3/uL; Basophil% 0.2 % (0-1); Eosinophil# 0.11 X10^3/uL; Eosinophils% 0.6 % (0-5); Hematocrit 29.6 % (37-47); Hemoglobin 8.7 g/dL (12.0-15.0); Lymphocyte # 0.58 X10^3/ul (0.83-4.51); Lymphocyte % 3.3 % (19-41); Mean Corp Hgb Conc 29.4 g/dL (32-36); Mean Corpuscular Hgb 23.7 pg (27.0-32.0); Mean Corpuscular Volume 80.7 fL (81-99); Mean Platelet Vol. 9.8 fl (6.2-12.0); Monocyte% 5.2 % (0-10); NRBC Flagged by Analyzer 0 % (0-5); Neutrophil # 15.64 X10^3/uL (2.7-7.7); Neutrophil % 89.8 % (47-70); POSITIVE DIFFERENTIAL YES; Platelet Count 326 K/mm3 (150-450); RBC Distribution Width CV 17.1 % (11.6-14.6); RBC Distribution Width SD 49.7 fl (35.1-43.9); Red Blood Count 3.67 M/mm3 (4.2-5.4); White Blood Count 17.4 K/mm3 (4.4-11.0)
[2024-01-27 07:09] LABS: Anion Gap 6 (5-15); BUN 10 mg/dL (7-18); BUN/Creat Ratio 30.9 RATIO (10-20); Calcium,Total 8.1 mg/dL (8.5-10.1); Chloride 100 mmol/L (98-107); Creatinine, Serum 0.32 mg/dL (0.55-1.02); EST Glomerular Filtration Rate 219 mL/min (>60); Est Glom Filt Rate - Afr Amer 265 mL/min (>60); Estimated Creatinine Clearance 160.57 ml/min; Glucose 94 mg/dL (74-106); Potassium 3.7 mmol/L (3.5-5.1); Sodium Level 131 mmol/L (136-145)
[2024-01-27] MEDS: Sodium Chloride 1 GM Tablet PO ×2 (09:20→20:53)
[2024-01-27] MEDS: Lidocaine 5% Patch 1 PATCH TOPICAL (09:26)
[2024-01-27] MEDS: Enoxaparin 40 MG/0.4 ML Syringe SC (09:26)
--- NOTE | 2024-01-27 10:23 | PCM.PROGNOTE ---
Subjective Subjective Patient seen and examined. She still feels very weak and is frail. She is tolerating her modified diet. She is still coughing a bit. She denies any nausea vomiting or any other symptoms. Review of systems otherwise negative. Objective Data Objective Data Vital Signs: Vital Signs Temp Pulse Resp BP Pulse Ox O2 Del Method O2 Flow Rate 98.0 F 127 H 24 H 101/50 L 94 Nasal Cannula 3 01/27/24 09:13 01/27/24 09:13 01/27/24 09:13 01/27/24 09:13 01/27/24 09:43 01/27/24 09:43 01/27/24 09:43 Oxygen Flow Rate (L/min) 3 Oxygen Delivery Method Nasal Cannula Weight: 123 lb 0.287 oz Body Mass Index (BMI) 19.3 Intake & Output: Intake and Output for Last 24 Hours 01/25/24 01/26/24 01/27/24 23:59 23:59 23:59 Intake Total 1480 / 1480 2760 / 2760 Output Total 450 / 450 Balance 1030 / 1030 2760 / 2760 Medical Nutrition Assessment Dietitian: Malnutrition Criteria Met Start: 01/25/24 12:28 Freq: Status: Active Protocol: Document 01/25/24 12:29 AG (Rec: 01/25/24 12:29 [id number]) Nutrition Malnutrition Evidence of Malnutrition Exists Yes Malnutrition (severe): Chronic Evidenced By Suboptimal Energy Intake ( Severe),Weight Loss (Severe) Clinical Problem Chronic Disease or Condition Related Malnutrition Etiology severe malnutrition related to inadequate energy intake d/t swallowing difficulty after radiation treatments for metastatic disease Signs/Symptoms as evidenced by unintentional wt loss of 14% < 2 months, estimated PO intake meeting < 50% of estimated energy needs < 2 months, BMI 18.1 Status Active Problem Recommendation Dietitian Recommendations/Changes recommend advance diet as tolerated to regular, texture/ consistency per ESCALATION ENGINEER; will add 8 oz ensure plus high protein TID w/ meals for additional nutrition if consumed given evidence of malnutrition. If unable to advance PO diet, may need to consider alternate means of nutrition, will provide further recommendations as indicated. Lab / Micro Data 01/27/24 05:50 01/27/24 05:50 Labs: Laboratory Results - last 24 hr 01/27/24 05:50: WBC 17.4 H, RBC 3.67 L, Hgb 8.7 L, Hct 29.6 L, MCV 80.7 L, MCH 23.7 L, MCHC 29.4 L, RDW Std Deviation 49.7 H, RDW Coeff of Vandana 17.1 H, Plt Count 326, MPV 9.8, Immature Gran % (Auto) 0.900, Neut % (Auto) 89.8 H, Lymph % (Auto) 3.3 L, [place] % (Auto) 5.2, Eos % (Auto) 0.6, Baso % (Auto) 0.2, Absolute Neuts (auto) 15.6 H, Absolute Lymphs (auto) 0.58 L, Nucleated RBC % 0, Sodium 131 L, Potassium 3.7, Chloride 100, Carbon Dioxide 25.0, Anion Gap 6, BUN 10, Creatinine 0.32 L, Estim Creat Clear Calc 160.57, Est GFR (MDRD) Af Amer 265, Est GFR (MDRD) Non-Af 219, BUN/Creatinine Ratio 30.9 H, Glucose 94, Calcium 8.1 L Micro: Microbiology 01/24/24 12:00 Mucosa - Nose SARS-CoV-2, Influenza & RSV (PCR) - Final Physical Exam Const alert and oriented x3 Constitutional Narrative: still very frail and weak General Appearance: cooperative HEENT normocephalic and head/scalp atraumatic Eyes PERRL and EOMs intact bilaterally Neck no lymphadenopathy and supple Lymph Lymphatic: no lymphadenopathy noted Resp Resp Narrative: moderately diminished breath sounds bibasally, no wheezes or crackles. still on 3L of oxygen by nasal canula Cardio regular rate, regular rhythm, S1 normal heart sound, S2 normal heart sound and no murmurs GI normal to inspection, nondistended, normoactive bowel sounds, soft to palpation, non-tender and non-distended Extremity normal capillary refill, no clubbing, cyanosis or edema and no calf tenderness General Extremity: no tenderness to palpation of joints or extremities Skin General Skin Exam: no breakdown Neuro CN's II-XII intact bilaterally, no focal motor deficits, no sensory deficits noted and deep tendon reflexes 2+ bilaterally Motor Exam: strength 5/5 throughout and general weakness Psych thought process normal and cooperative Appearance: appropriate Assessment & Plan Assessment/Plan (1) Failure to thrive: (2) Leukocytosis: (3) Dehydration: PLAN: Plan #Hypoxia in the setting of metastatic lung cancer Remainson 3 L of oxygen. Follows up at [facility] and has stage IV lung cancer with mets to the brain and adrenals but no bony mets. Has not yet had radiation oncology for the mets to the brain. CTA chest showed progressive left hilar and left mediastinal masses with narrowing of the left pulmonary artery and branch of the pulmonary artery with diffuse emphysematous changes. Breathing treatments with bronchodilators. Titrate oxygen to maintain saturation above 90%. # Debility and failure to thrive in the setting of metastatic lung cancer Patient is very weak and frail. Still not eating or drinking well especially after she had radiation for the lung cancer. 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 PT OT on board. For precautions. States that she wants follow-up at [facility] with psychotherapist counselor for evaluation for esophageal stenosis/stricture so that she has her care in one place #Severe protein calorie malnutrition: BMI 17.1. Consult dietitian. Likely due to metastatic lung cancer. 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 Speech therapy on board. Modified barium swallow which showed moderate oropharyngeal dysphagia Patient states she will follow-up with gastroenterology at [facility] so all her care remains 1 place on modified diet per speech therapy #Hypotonic hypovolemic hyponatremia: Resolving with IV fluids. Sodium today is up to 131. Continue hydration with IVF. encourage oral hydration too. DC IVF #Hypokalemia: resolved. K is 3.7 #DVT prophylaxis: Lovenox Disposition: patient very frail and weak. Per case management note, likely tomorrow to DC home with home health care. Anticipate discharge over the next 1 to 2 days if she is feeling better. Charges/Coding Visit Charges Inpatient E&M: 78601 Subs Hosp L2
[2024-01-27] MEDS: Acetaminophen 325 MG Tablet 650 MG PO ×2 (15:29→21:39)
--- NOTE | 2024-01-27 17:00 | ECHOD_ITS ---
Reason For Study: Tachycardia Procedure This was a 2D Doppler, Color Flow transthoracic echocardiogram. Technically difficult study due to patients heart rate and positioning. Exam performed portable in patient room. Left Ventricle Normal LV size. Left ventricular systolic function is normal. The estimated ejection fraction is 60 %. Stage 1 diastolic dysfunction. No regional wall motion abnormalities noted. Right Ventricle Normal RV size. Normal systolic function. Atria Normal left atrium. Normal right atrium. Mitral Valve Normal mitral valve. Tricuspid Valve Normal tricuspid valve. Mild (1+) tricuspid valve insufficiency. Pulmonary artery systolic pressure is 33 mmHg. Aortic Valve Trisinus/trileaflet aortic valve. Mild diffuse aortic valve thickening. Mild focal aortic valve calcification. Pulmonic Valve Normal pulmonic valve. Great Vessels Normal aortic root. The pulmonary artery is normal size. Inferior vena cava collapse with respiration. Pericardium/Pleural No pericardial effusion. MMode/2D Measurements & Calculations LVIDd: 3.9 cm IVSd: 0.74 cm LA dimension: 3.0 cm LVIDs: 2.6 cm LVPWd: 0.66 cm RVDd: 3.1 cm FS: 31.7 % LAV(MOD-bp): 33.0 ml LA A4 area: 13.2 cm2 RA A4 area: 12.6 cm2 LAV(MOD-bp) Indexed: 20.0 ml/m2 LAV(MOD-sp2): 37.2 ml LAV(MOD-sp4): 28.2 ml TAPSE: 1.2 cm Time Measurements MV dec time: 0.10 sec Doppler Measurements & Calculations MV E max scout: 63.1 cm/sec Lat Peak E' Scout: 12.8 cm/sec Med Peak E' Scout: 8.9 cm/sec MV A max scout: 94.9 cm/sec E/E' lat: 4.9 E/E' med: 7.1 MV E/A: 0.66 MV V2 max: 102.0 cm/sec Ao V2 max: 137.7 cm/sec MV max P.2 mmHg MV dec slope: 621.6 cm/sec2 Ao max P.6 mmHg MV V2 mean: 67.5 cm/sec MV mean P.1 mmHg MV V2 VTI: 14.7 cm LV V1 max: 109.8 cm/sec PA V2 max: 112.8 cm/sec TR max scout: 265.9 cm/sec LV V1 max P.8 mmHg PA V2 mean: 71.7 cm/sec TR max P.3 mmHg LV V1 mean P.6 mmHg LV V1 mean: 75.3 cm/sec LV V1 VTI: 15.0 cm ECHO/Echo Complete Interpretation Summary Normal LV size. Left ventricular systolic function is normal. The estimated ejection fraction is 60 %. Stage 1 diastolic dysfunction. Mild (1+) tricuspid valve insufficiency. Ordering Physician: Coreen Arshad Performed By: Rizwan White RCS
[2024-01-27] MEDS: Metoprolol Tartrate 25 MG Tablet PO (18:05)
[2024-01-28] VITALS (12 sets, daily range): BP systolic 91–119; BP diastolic 53–71; PULSE 115–131; RESP 20–24; TEMP 36.2–36.9; O2SAT 90–97; BMI 19.3
[2024-01-28] MEDS: oxyCODONE 5 MG Tablet 10 MG PO ×4 (05:50→23:11)
[2024-01-28 06:27] LABS: Absolute Lymphocyte Count 0.68 X10^3/uL (0.83-4.51); Absolute Neutrophil Count 15.1 X10^3/uL (2.0-7.7); Basophil# 0.03 X10^3/uL; Basophil% 0.2 % (0-1); Eosinophil# 0.17 X10^3/uL; Hematocrit 30.6 % (37-47); Lymphocyte # 0.68 X10^3/ul (0.83-4.51); Mean Corp Hgb Conc 29.4 g/dL (32-36); Mean Corpuscular Hgb 23.7 pg (27.0-32.0); Mean Corpuscular Volume 80.5 fL (81-99); Mean Platelet Vol. 9.4 fl (6.2-12.0); Monocyte% 4.7 % (0-10); NRBC Flagged by Analyzer 0 % (0-5); Neutrophil # 15.13 X10^3/uL (2.7-7.7); Neutrophil % 89.2 % (47-70); Platelet Count 319 K/mm3 (150-450); RBC Distribution Width CV 17.2 % (11.6-14.6); RBC Distribution Width SD 49.6 fl (35.1-43.9)
[2024-01-28 06:51] LABS: Anion Gap 6 (5-15); BUN 12 mg/dL (7-18); BUN/Creat Ratio 31.9 RATIO (10-20); Calcium,Total 8.4 mg/dL (8.5-10.1); Chloride 98 mmol/L (98-107); Creatinine, Serum 0.38 mg/dL (0.55-1.02); EST Glomerular Filtration Rate 184 mL/min (>60); Est Glom Filt Rate - Afr Amer 223 mL/min (>60); Estimated Creatinine Clearance 135.22 ml/min; Glucose 103 mg/dL (74-106); Potassium 3.4 mmol/L (3.5-5.1); Sodium Level 130 mmol/L (136-145)
--- NOTE | 2024-01-28 08:49 | NURSING ---
While checking VS Pts SPO2 88% while on 2 L NC. increased to 3 L and pt sat improved to 92. Will continue to monitor
[2024-01-28] MEDS: Lidocaine 5% Patch 1 PATCH TOPICAL (09:53)
[2024-01-28] MEDS: Enoxaparin 40 MG/0.4 ML Syringe SC (09:54)
[2024-01-28] MEDS: Metoprolol Tartrate 25 MG Tablet PO ×2 (09:54→22:49)
[2024-01-28] MEDS: Pantoprazole Sodium 40 MG Tablet PO (09:55)
[2024-01-28] MEDS: Polyethylene Glycol 3350 17 GM PACKET PO (12:57)
[2024-01-28] MEDS: Sodium Chloride 1 GM Tablet PO ×2 (12:57→22:49)
--- NOTE | 2024-01-28 14:04 | PCM.PN.HOSP ---
Reason for Visit Reason for Visit: Worsening shortness of breath Subjective Subjective Patient is a 63-year-old white female who presented to the emergency department at [facility] on 01/24/2024 with worsening shortness of breath. The patient is oxygen dependent at baseline and on 2 L of oxygen. She was diagnosed with lung cancer in November 2023 and completed a round of radiation to the chest at the recommendation of Dr. Loya. Upon presentation she complained of anterior bilateral chest tightness with worsening shortness of breath, exhaustion, dehydration, fatigue and decreased p.o. intake. With regards to her cancer she has known metastatic disease most notably to the brain for which she was to follow-up at [facility] [place] for brain radiation however she not been able to make it there yet. For about the last 3 weeks prior to presentation she reported difficulty with swallowing and pain in her lower chest and sternum. She reported that she had not been eating much and indicated she was only really taking in some applesauce and food bites of food intermittently. Upon presentation she was afebrile with a temperature of 97.2, heart rate was 131, respiratory rate was 20, blood pressure was 105/67 oxygen saturations were 92% on room air. She had leukocytosis with a white count of 23.7 but had been on steroids with Decadron, chronic anemia with a hemoglobin of 10.4 that is microcytic in nature and platelet count was normal. Her chemistry panel showed hyponatremia with a sodium of 127, mild dehydration with a BUN of 19 and creatinine of 0.51 which is normal but she has very little lean muscle mass so I suspect her baseline creatinine is much lower than this. Her liver functions are unremarkable. Troponin was normal. Chest x-ray showed left para-aortic and suprahilar densities and a CT was recommended. CTA of the chest was performed and was negative for any pulmonary embolism or dissection however she did have progression of left hilar and left mediastinal masses with narrowing of the left pulmonary artery and the lower lobe branches of the pulmonary artery, severe diffuse emphysematous changes as well as bilateral metastatic adrenal masses and retroperitoneal lymphadenopathy. The mass at this time is 7.6 x 4.9 x 7.3 cm which is larger than previous on December 02, 2023 despite radiation. I had extensive discussion with Dr. Loya with regards to her overall prognosis and he indicated given that the mass is enlarging despite radiation her overall prognosis is poor and felt that hospice would indeed be appropriate. He did indicate that if she wanted continue to be aggressive he recommended obtaining an MRI of the brain and consider transferring her to [facility] for brain radiation. I did discuss with the patient in it sounds as if she is leaning towards hospice what asked me to come back later today when her sister is able to be at the bedside. Objective Data Objective Data Vital Signs: Vital Signs Temp Pulse Resp BP Pulse Ox O2 Del Method O2 Flow Rate 98.1 F 115 H 22 H 91/53 L 94 Room Air 2 01/28/24 11:50 01/28/24 11:50 01/28/24 11:50 01/28/24 11:50 01/28/24 11:50 01/28/24 11:50 01/28/24 11:50 Oxygen Flow Rate (L/min) 2 Oxygen Delivery Method Room Air Weight: 55.8 kg Body Mass Index (BMI) 19.3 Intake & Output: Intake and Output for Last 24 Hours 01/26/24 01/27/24 01/28/24 23:59 23:59 23:59 Intake Total 2760 / 2760 900 / 900 Balance 2760 / 2760 900 / 900 Medical Nutrition Assessment Dietitian: Malnutrition Criteria Met Start: 01/25/24 12:28 Freq: Status: Active Protocol: Document 01/25/24 12:29 (Rec: 01/25/24 12:29 [id number]) Nutrition Malnutrition Evidence of Malnutrition Exists Yes Malnutrition (severe): Chronic Evidenced By Suboptimal Energy Intake ( Severe),Weight Loss (Severe) Clinical Problem Chronic Disease or Condition Related Malnutrition Etiology severe malnutrition related to inadequate energy intake d/t swallowing difficulty after radiation treatments for metastatic disease Signs/Symptoms as evidenced by unintentional wt loss of 14% < 2 months, estimated PO intake meeting < 50% of estimated energy needs < 2 months, BMI 18.1 Status Active Problem Recommendation Dietitian Recommendations/Changes recommend advance diet as tolerated to regular, texture/ consistency per MONOTYPER; will add 8 oz ensure plus high protein TID w/ meals for additional nutrition if consumed given evidence of malnutrition. If unable to advance PO diet, may need to consider alternate means of nutrition, will provide further recommendations as indicated. Lab / Micro Data 01/28/24 05:55 01/28/24 05:55 Labs: Laboratory Results - last 24 hr 05/06/24 05:55: WBC 17.0 H, RBC 3.80 L, Hgb 9.0 L, Hct 30.6 L, MCV 80.5 L, MCH 23.7 L, MCHC 29.4 L, RDW Std Deviation 49.6 H, RDW Coeff of Vandana 17.2 H, Plt Count 319, MPV 9.4, Immature Gran % (Auto) 0.900, Neut % (Auto) 89.2 H, Lymph % (Auto) 4.0 L, [place] % (Auto) 4.7, Eos % (Auto) 1.0, Baso % (Auto) 0.2, Absolute Neuts (auto) 15.1 H, Absolute Lymphs (auto) 0.68 L, Nucleated RBC % 0, Sodium 130 L, Potassium 3.4 L, Chloride 98, Carbon Dioxide 26.0, Anion Gap 6, BUN 12, Creatinine 0.38 L, Estim Creat Clear Calc 135.22, Est GFR (MDRD) Af Amer 223, Est GFR (MDRD) Non-Af 184, BUN/Creatinine Ratio 31.9 H, Glucose 103, Calcium 8.4 L Micro: Microbiology 01/24/24 12:00 Mucosa - Nose SARS-CoV-2, Influenza & RSV (PCR) - Final Radiography Diagnostic Testing: Radiology Impression Echocardiogram 01/27/24 17:00 Interpretation Summary Normal LV size. Left ventricular systolic function is normal. The estimated ejection fraction is 60 %. Stage 1 diastolic dysfunction. Mild (1+) tricuspid valve insufficiency. Ordering Physician: Coreen Arshad Performed By: Rizwan White RCS Physical Exam Const alert, oriented x3 and no apparent distress; Negative for average body habitus, healthy appearing or well nourished Constitutional Narrative: Frail-appearing upper middle-aged white female, sitting up in a chair at the bedside, appears exhausted but nontoxic, pleasant and interacts appropriately HEENT head/scalp atraumatic and moist oral mucous membranes HEENT Narrative: Mallampati is 1-2, no thrush Head and Scalp: normocephalic Resp no retractions, no use of accessory muscles and clear to auscultation bilaterally Resp Narrative: Mild tachypnea, diminished on right side diffusely greater at the base and the apex, normal aeration on the left with no adventitious sounds noted Cardio regular rhythm, S1 normal heart sound, S2 normal heart sound, no murmurs, no rub, no gallops and no clicks Cardio Narrative: Tachycardia GI normal to inspection, nondistended, normoactive bowel sounds, soft to palpation and non-tender GI Narrative: Scaphoid abdomen Extremity no clubbing, cyanosis or edema Extremity Narrative: Decreased lean muscle mass, pedal pulses are 2+ Neuro oriented x3, moves all extremities and no focal motor deficits Neuro Narrative: Significant generalized weakness noted but no focal deficits Speech: speech normal Psych affect normal Psych Narrative: Eye contact is good and patient interacts appropriately Assessment & Plan Assessment/Plan (1) Failure to thrive: (2) Leukocytosis: (3) Chest pain: (4) Weakness: (5) Hypoxia: PLAN: Plan Acute on chronic hypoxia -At baseline patient is on 2 L nasal cannula -Currently on 3 L nasal cannula which has been her baseline -I am wondering if this is her new baseline given the progression of disease on her CT of the chest -Continue 3 L and wean as able however I suspect she may not be able to wean beyond this -Infectious workup has been unremarkable Metastatic lung CA -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 Loya -Given the lack of improvement with radiation to the chest mass Dr. Loya did indicate that hospice would be appropriate if the patient desires but if she would like to have further aggressive therapy the recommendation would be for MRI of the brain and transfer to [facility] for consideration of whole brain radiation -After discussion with patient it sounds as if she is leaning towards hospice however would like me to talk with both she and her sister later today Dysphagia -Likely related to radiation on esophagitis -Will hold on steroids for now given esophagitis per discussion with Dr. Loya -Modified barium swallow showed moderate oropharyngeal dysphagia -Continue modified diet -Speech therapy continues to follow Severe malnutrition -Dietitian is following -Patient on modified diet due to dysphagia however liberalized as able -continue supplements -Likely multifactorial due to radiation esophagitis with decreased p.o. 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 potassium given -Repeat in a.m. if patient would like ongoing aggressive treatment -If not hospice will repeat Phos and magnesium tomorrow Leukocytosis -Trending down -Likely elevated on admission due to steroid use and demargination -Continue to monitor Generalized weakness/debility secondary to metastatic lung CA -PT and OT are following -Awaiting goals of care discussion Chronic pain secondary above -Continue as needed pain medication -Hold Decadron for now due to severe esophagitis related to radiation DVT prophylaxis -Continue subcu Lovenox CODE STATUS -Full code Disposition: -Further discussion when sister arrives later today with regards to plan of care Charges/Coding Visit Charges Inpatient E&M: 76534 Subs Hosp L3
--- NOTE | 2024-01-28 15:45 | CASEMGMT ---
Physician spoke with patient and her sister Shakila. Patient and Shakila would like to talk with Hospice. SW met with patient and Shakila and they confirmed they would like to talk with Hospice. SW explained how the process works. Patient would like her sister Shakila contacted. SW verified Shakila's phone number. SW called Hospice with referral and also faxed information. TOVA spoke with Amanda at Hospice. Sue MCKAY
[2024-01-29] VITALS (8 sets, daily range): BP systolic 105–117; BP diastolic 60–70; PULSE 102–122; RESP 18–24; TEMP 36.1–37.2; O2SAT 94–100; BMI 18.7
[2024-01-29] MEDS: oxyCODONE 5 MG Tablet 10 MG PO ×3 (05:46→20:49)
[2024-01-29 07:28] LABS: Absolute Lymphocyte Count 0.97 X10^3/uL (0.83-4.51); Absolute Neutrophil Count 19.3 X10^3/uL (2.0-7.7); Basophil# 0.05 X10^3/uL; Basophil% 0.2 % (0-1); Eosinophil# 0.05 X10^3/uL; Eosinophils% 0.2 % (0-5); Hematocrit 28.5 % (37-47); Hemoglobin 8.6 g/dL (12.0-15.0); Lymphocyte # 0.97 X10^3/ul (0.83-4.51); Lymphocyte % 4.4 % (19-41); Mean Corp Hgb Conc 30.2 g/dL (32-36); Mean Corpuscular Volume 79.4 fL (81-99); Mean Platelet Vol. 9.9 fl (6.2-12.0); Monocyte# 1.19 X10^3/uL; Monocyte% 5.5 % (0-10); NRBC Flagged by Analyzer 0 % (0-5); Neutrophil # 19.33 X10^3/uL (2.7-7.7); Neutrophil % 88.7 % (47-70); Platelet Count 316 K/mm3 (150-450); RBC Distribution Width CV 17.2 % (11.6-14.6); RBC Distribution Width SD 48.9 fl (35.1-43.9); Red Blood Count 3.59 M/mm3 (4.2-5.4); White Blood Count 21.8 K/mm3 (4.4-11.0)
--- NOTE | 2024-01-29 07:48 | CASEMGMT ---
SW received a voice mail from Hospice. They will be meeting with patient and family Sunday- around 1:30/2p. Sue MCKAY
[2024-01-29 08:06] LABS: Anion Gap 7 (5-15); BUN 8 mg/dL (7-18); BUN/Creat Ratio 21.6 RATIO (10-20); Calcium,Total 8.1 mg/dL (8.5-10.1); Chloride 96 mmol/L (98-107); Creatinine, Serum 0.37 mg/dL (0.55-1.02); EST Glomerular Filtration Rate 187 mL/min (>60); Est Glom Filt Rate - Afr Amer 227 mL/min (>60); Estimated Creatinine Clearance 135.14 ml/min; Glucose 108 mg/dL (74-106); Potassium 3.6 mmol/L (3.5-5.1); Sodium Level 129 mmol/L (136-145)
[2024-01-29] MEDS: Enoxaparin 40 MG/0.4 ML Syringe SC (09:17)
[2024-01-29] MEDS: Polyethylene Glycol 3350 17 GM PACKET PO (09:18)
[2024-01-29] MEDS: Sodium Chloride 1 GM Tablet PO ×2 (09:18→20:46)
[2024-01-29] MEDS: Lidocaine 5% Patch 1 PATCH TOPICAL (09:18)
[2024-01-29] MEDS: Pantoprazole Sodium 40 MG Tablet PO (09:18)
[2024-01-29] MEDS: Metoprolol Tartrate 25 MG Tablet PO ×2 (09:18→20:46)
[2024-01-29] MEDS: Senna/Docusate Sodium 1 Tablet 2 TABLET PO (09:26)
--- NOTE | 2024-01-29 13:00 | CASEMGMT ---
TOVA spoke with patient. Patient stated her insurance is going to be canceled at the end of the month. Patient has no other insurance. Patient said she was working, but now she just gets Social Security and a $100 pension. SW told patient that SW will check to see if our Medicaid retail customer service representative could come and talk with her. Patient said she is meeting with Hospice later today. TOVA told patient SW will check back with her. Sue MCKAY
--- NOTE | 2024-01-29 15:33 | CASEMGMT ---
Hospice spoke with patient and patient wants to wait to sign any papers until after her swallow study tomorrow. SW met with patient and her sister. SW asked about patient's plan at discharge. Patient stated she will need to go to a retirement whether she signs with Hospice or not. RN ALLEN left a list of intermediate facilities with patient on Sunday. SW found the list and provided it to patient and her sister. SW explained SW will just need their preferences (around 3) and SW will take care of contacting the facilities. Sue Youssef SALES PRODUCER NELY
--- NOTE | 2024-01-29 15:55 | PCM.PN.HOSP ---
Reason for Visit Reason for Visit: Worsening shortness of breath Subjective Subjective No issues overnight. Hospice meeting was today at 130 and patient would like to see how she does on a repeat barium swallow tomorrow prior to signing with hospice. Objective Data Objective Data Vital Signs: Vital Signs Temp Pulse Resp BP Pulse Ox O2 Del Method O2 Flow Rate 99.0 F 107 H 18 109/60 100 Nasal Cannula 3 01/29/24 11:13 01/29/24 11:13 01/29/24 11:13 01/29/24 11:13 01/29/24 11:13 01/29/24 11:13 01/29/24 11:13 Oxygen Flow Rate (L/min) 3 Oxygen Delivery Method Nasal Cannula Weight: 54.3 kg Body Mass Index (BMI) 18.7 Intake & Output: Intake and Output for Last 24 Hours 01/27/24 01/28/24 01/29/24 23:59 23:59 23:59 Intake Total 900 / 900 450 / 930 600 / 600 Balance 900 / 900 450 / 930 600 / 600 Medical Nutrition Assessment Dietitian: Malnutrition Criteria Met Start: 01/25/24 12:28 Freq: Status: Active Protocol: Document 01/25/24 12:29 AG (Rec: 01/25/24 12:29 [id number]) Nutrition Malnutrition Evidence of Malnutrition Exists Yes Malnutrition (severe): Chronic Evidenced By Suboptimal Energy Intake ( Severe),Weight Loss (Severe) Clinical Problem Chronic Disease or Condition Related Malnutrition Etiology severe malnutrition related to inadequate energy intake d/t swallowing difficulty after radiation treatments for metastatic disease Signs/Symptoms as evidenced by unintentional wt loss of 14% < 2 months, estimated PO intake meeting < 50% of estimated energy needs < 2 months, BMI 18.1 Status Active Problem Recommendation Dietitian Recommendations/Changes recommend advance diet as tolerated to regular, texture/ consistency per SHROUD [employer] TI[employer]; will add 8 oz ensure plus high protein TID w/ meals for additional nutrition if consumed given evidence of malnutrition. If unable to advance PO diet, may need to consider alternate means of nutrition, will provide further recommendations as indicated. Lab / Micro Data 01/29/24 06:55 01/29/24 06:55 Labs: Laboratory Results - last 24 hr 01/29/24 06:55: WBC 21.8 H, RBC 3.59 L, Hgb 8.6 L, Hct 28.5 L, MCV 79.4 L, MCH 24.0 L, MCHC 30.2 L, RDW Std Deviation 48.9 H, RDW Coeff of Vandana 17.2 H, Plt Count 316, MPV 9.9, Immature Gran % (Auto) 1.000 H, Neut % (Auto) 88.7 H, Lymph % (Auto) 4.4 L, [place] % (Auto) 5.5, Eos % (Auto) 0.2, Baso % (Auto) 0.2, Absolute Neuts (auto) 19.3 H, Absolute Lymphs (auto) 0.97, Nucleated RBC % 0, Sodium 129 L, Potassium 3.6, Chloride 96 L, Carbon Dioxide 26.0, Anion Gap 7, BUN 8, Creatinine 0.37 L, Estim Creat Clear Calc 135.14, Est GFR (MDRD) Af Amer 227, Est GFR (MDRD) Non-Af 187, BUN/Creatinine Ratio 21.6 H, Glucose 108 H, Calcium 8.1 L Micro: Microbiology 01/24/24 12:00 Mucosa - Nose SARS-CoV-2, Influenza & RSV (PCR) - Final Physical Exam Narrative General: Alert, Oriented x3, Cooperative. Very fatigued, loss of weight HEENT: Atraumatic, PERRLA, EOMI, Normocephalic Oral: Oral mucosa dry. No Gingival or Mucosal Lesions/ Ulcerations Neck: Supple, No JVD, Negative Carotid Bruits Chest wall/Lungs: Air entry diminished in bilateral lung bases. No crepitation/rhonchi Cardiovascular: Regular rate, Regular Rhythm, Normal S1, Normal S2, No M/G/R Abdomen: Bowel Sounds Present, Soft, Non Tender, Non-Distended : No dysuria. No renal angle tenderness. No suprapubic tenderness. Extremities: No edema, Capillary Refill Less than 3 Seconds Skin: No rashes, No breakdown Musculoskeletal: No Tenderness to Palpation of Joints or Extremities. Low muscle mass in extremities, paraspinal and craniofacial muscles. Loss of subcutaneous fat. Neurological: Cranial nerves II-XII grossly intact, DTR 2+/4. No acute focal neurological deficit. Psych/Mental Status: Flat affect. Const alert, oriented x3 and no apparent distress; Negative for average body habitus, healthy appearing or well nourished Constitutional Narrative: Frail-appearing upper middle-aged white female, sitting up in a chair at the bedside, appears exhausted but nontoxic, pleasant and interacts appropriately General Appearance: cooperative HEENT normocephalic, head/scalp atraumatic and moist oral mucous membranes Eyes PERRL and EOMs intact bilaterally Neck no lymphadenopathy and supple Lymph Lymphatic: no lymphadenopathy noted Resp no retractions, no use of accessory muscles and clear to auscultation bilaterally Resp Narrative: Mild tachypnea, diminished on right side diffusely greater at the base and the apex, normal aeration on the left with no adventitious sounds noted Cardio regular rate, regular rhythm, S1 normal heart sound, S2 normal heart sound, no murmurs, no rub, no gallops and no clicks Cardio Narrative: Tachycardia GI normal to inspection, nondistended, normoactive bowel sounds, soft to palpation, non-tender and non-distended GI Narrative: Scaphoid abdomen Extremity normal capillary refill, no clubbing, cyanosis or edema and no calf tenderness Extremity Narrative: Decreased lean muscle mass, pedal pulses are 2+ General Extremity: no tenderness to palpation of joints or extremities Skin General Skin Exam: no breakdown Neuro oriented x3, CN's II-XII intact bilaterally, moves all extremities, no focal motor deficits, no sensory deficits noted and deep tendon reflexes 2+ bilaterally Neuro Narrative: Significant generalized weakness noted but no focal deficits Speech: speech normal Motor Exam: strength 5/5 throughout and general weakness Psych thought process normal, cooperative and affect normal Psych Narrative: Eye contact is good and patient interacts appropriately Appearance: appropriate Assessment & Plan Assessment/Plan (1) Failure to thrive: (2) Leukocytosis: (3) Chest pain: (4) Weakness: (5) Hypoxia: PLAN: Plan Acute on chronic hypoxia -At baseline patient is on 2 L nasal cannula -Remains on 3 L nasal cannula -I am wondering if this is her new baseline given the progression of disease on her CT of the chest -Continue 3 L and wean as able however I suspect she may not be able to wean beyond this -Infectious workup was unremarkable Metastatic lung CA -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 Loya -Given the lack of improvement with radiation to the chest mass Dr. Loya did indicate that hospice would be appropriate if the patient desires but if she would like to have further aggressive therapy the recommendation would be for MRI of the brain and transfer to [facility] for consideration of whole brain radiation -Patient did meet with hospice and would like to see how she does on a modified barium swallow tomorrow before she signed with hospice -Patient is stating if she does do hospice or does not do hospice she will need to go to skilled facility at discharge Moderate oropharyngeal dysphagia -Likely related to radiation on esophagitis -Continue pur?e nectar thick liquid diet -Modified barium swallow showed moderate oropharyngeal dysphagia -Repeat MBS tomorrow pending as verified with speech therapy -Speech therapy continues to follow Severe malnutrition -Dietitian is following -Patient on modified diet due to dysphagia however liberalized as able -continue supplements -Likely multifactorial due to radiation esophagitis with decreased p.o. 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 -Stable and acute component seems to be resolved -Some of the acute component may be related to some hypovolemic hyponatremia which has resolved -Continue to monitor -Continue sodium supplementation with sodium 1 g twice daily Hypokalemia -Resolved Leukocytosis -Back up today to 21.8 but likely really related to her the reinitiation of her Decadron Generalized weakness/debility secondary to metastatic lung CA -PT and OT are following -Awaiting goals of care discussion Chronic pain secondary above -Continue as needed pain medication -Hold Decadron for now due to severe esophagitis related to radiation DVT prophylaxis -Continue subcu Lovenox CODE STATUS -Full code Charges/Coding Visit Charges Inpatient E&M: 68699 Subs Hosp L2
[2024-01-30] VITALS (9 sets, daily range): BP systolic 92–112; BP diastolic 42–67; PULSE 112–118; RESP 20; TEMP 35.7–36.7; O2SAT 91–96; BMI 18.1
[2024-01-30] MEDS: Morphine 2 MG/ML Syringe IV ×3 (00:43→20:39)
[2024-01-30] MEDS: 0.9% Saline Lock 10 ML Syringe IV ×3 (00:44→20:39)
[2024-01-30] MEDS: oxyCODONE 5 MG Tablet 10 MG PO ×4 (03:15→21:43)
[2024-01-30 07:24] LABS: Absolute Lymphocyte Count 0.97 X10^3/uL (0.83-4.51); Absolute Neutrophil Count 18.7 X10^3/uL (2.0-7.7); Basophil# 0.02 X10^3/uL; Basophil% 0.1 % (0-1); Eosinophil# 0.05 X10^3/uL; Eosinophils% 0.2 % (0-5); Hematocrit 30.5 % (37-47); Lymphocyte # 0.97 X10^3/ul (0.83-4.51); Lymphocyte % 4.7 % (19-41); Mean Corp Hgb Conc 29.5 g/dL (32-36); Mean Corpuscular Hgb 23.7 pg (27.0-32.0); Mean Corpuscular Volume 80.3 fL (81-99); Mean Platelet Vol. 9.4 fl (6.2-12.0); Monocyte# 0.97 X10^3/uL; Monocyte% 4.7 % (0-10); NRBC Flagged by Analyzer 0 % (0-5); Neutrophil # 18.65 X10^3/uL (2.7-7.7); Neutrophil % 89.4 % (47-70); Platelet Count 339 K/mm3 (150-450); RBC Distribution Width CV 17.1 % (11.6-14.6); RBC Distribution Width SD 49.4 fl (35.1-43.9); White Blood Count 20.8 K/mm3 (4.4-11.0)
[2024-01-30 08:03] LABS: Anion Gap 5 (5-15); BUN 10 mg/dL (7-18); BUN/Creat Ratio 27.4 RATIO (10-20); Calcium,Total 8.3 mg/dL (8.5-10.1); Chloride 95 mmol/L (98-107); Creatinine, Serum 0.36 mg/dL (0.55-1.02); EST Glomerular Filtration Rate 191 mL/min (>60); Est Glom Filt Rate - Afr Amer 231 mL/min (>60); Estimated Creatinine Clearance 134.54 ml/min; Glucose 93 mg/dL (74-106); Potassium 3.7 mmol/L (3.5-5.1); Sodium Level 128 mmol/L (136-145)
[2024-01-30] MEDS: Senna/Docusate Sodium 1 Tablet 2 TABLET PO (09:14)
[2024-01-30] MEDS: Sodium Chloride 1 GM Tablet PO ×2 (09:16→20:41)
[2024-01-30] MEDS: Metoprolol Tartrate 25 MG Tablet PO ×2 (09:16→20:40)
[2024-01-30] MEDS: Pantoprazole Sodium 40 MG Tablet PO (09:17)
[2024-01-30] MEDS: Lidocaine 5% Patch 1 PATCH TOPICAL (09:17)
[2024-01-30] MEDS: Enoxaparin 40 MG/0.4 ML Syringe SC (09:17)
[2024-01-30] MEDS: Polyethylene Glycol 3350 17 GM PACKET PO (09:17)
--- NOTE | 2024-01-30 12:46 | ST.MBS ---
Modified Barium Swallow Patient Information Study Date: 01/30/24 Study Time: 13:00 Direct Billable Minutes: 93 Total Minutes procedure & reportin Diagnosis: Acute URI J06.9, Acute cough R05.1 Referring Physician: Sally Chaves Reason for Referral: Objectively assess swallow function, assess risk for aspiration, and determine recommendations for least restrictive diet textures and compensatory strategies to improve safety of swallow. Medical History: PMH: Acute otitis externa of left ear, Acute sinusitis, unspecified, Diarrhea, Fatigue, Hay fever, Lung cancer, Scabies, Severe headache, URI. The patient presented to [facility] ED 01/24/24 with increasing dyspnea/shortness of breath for past several days with history of lung cancer recent diagnosis. She was diagnosed lung cancer 2 months ago by [facility] with recent spread to her brain, as well as skin metastasis on the left lower chest wall. She has had radiation for lung cancer and for the last 3 weeks, and she is having difficulty in swallowing with very limited oral intake and mostly just drinks. In ED, patient was tachycardic, tachypneic on 2 L of oxygen. She was further admitted for mild resuscitation with IV fluid and optimization before she can follow-up with [facility] radiation oncologist. She was referred for ST due to swallowing difficulty. During BSE, 01/25/24 she had coughing with liquids. SOB evident at bedside and she reports feeling it is harder to breathe when she eats/drinks. ORDER CHECKER PACKER PROCESSER recommended to continue full liquids with distant supervision and MBSS that afternoon. MBSS 01/25/24 revealed moderate oropharyngeal dysphagia with silent aspiration of thin liquids and recommended puree textures / mildly thick liquids with distant supervision (see study for strategies and precautions). She has been tolerating diet and was recommended for repeat MBSS today to consider diet advancement. Current Diet Ordered: Puree / Mildly thick liquids Dentition: Natural Teeth and Missing Teeth Mental Status: WNL Respiratory Status: Oxygenating on 3L/M nasal cannula Penetration-Aspiration Scale Penetration-Aspiration Scale: OBJECTIVE ASSESSMENT OF SWALLOW FUNCTION (QUANTITATIVE ? PER TRIAL): PENETRATION / ASPIRATION SCALE (PARRA): 1 = does not enter airway 2 = enters airway/above vocal folds/ejected 3 = enters airway/above vocal folds/not ejected 4 = enters airway/contacts vocal folds/ejected 5 = enters airway/contacts vocal folds/not ejected 6 = enters airway/below vocal folds/ejected 7 = enters airway/below vocal folds/not ejected despite effort 8 = enters airway/below vocal folds/no effort VIDEOFLOROSCOPIC SCALE SCORE (PARRA): Grade I = aspiration of material that has penetrated into the laryngeal vestibule, intact cough reflex Grade II = aspiration < 10 % of the bolus, intact cough reflex Grade III = aspiration of < 10 % of the bolus, reduced cough reflex or aspiration of > 10 % of the bolus, intact cough reflex Grade IV = aspiration of > 10 % of the bolus, reduced cough reflex Penetration-Aspiration Scale Score Thin Liquid via teaspoon: Result: 2= enter airway/above vocal folds/ejected Thin Liquid via teaspoon Trial 2: Result: 2= enter airway/above vocal folds/ejected Thin Liquid via small single sip: cup: Result: 5= enters airways/contacts vocal folds/not ejected [place] Thick Liquid via small single sip: cup: Result: 1= does not enter airway Pudding via teaspoon: Result: 1= does not enter airway Thin Liquid via small single sip: cup Effortful swallow: Result: 5= enters airways/contacts vocal folds/not ejected Thin Liquid via small single sip: cup Chin tuck: Result: 8= enters airway/below vocal folds/no effort 1/4 Cookie: Result: 1= does not enter airway [place] Thick Liquid via small single sip: cup Trial 2: Result: 2= enter airway/above vocal folds/ejected Thin liquid via small sip: cup Cough and re-swallow: Result: 4= enters airway/contacts vocal folds/ejected Thin liquid via small sip: cup Cough and re-swallow Trial 2: Result: 5= enters airways/contacts vocal folds/not ejected Oral Phase Labial Seal: Interlabial escape, no progression to anterior lip Tongue Control During Bolus Hold: Posterior escape of less than half of bolus Bolus Preparation/Mastication: Slow prolonged chewing/mashing with complete recollection Bolus Transport/Lingual Motion: Delayed initiation of tongue motion Oral Residue: Trace residue lining oral structures Pharyngeal Phase Initiation of Pharyngeal Swallow: Bolus head at posterior laryngeal surgace of epiglottis Soft Palate Elevation: Trace column of contrast/air between soft palate and pharyngeal wall Laryngeal Elevation: Partial superior movement thyroid cart/partial apprx aryt-epig petiole Anterior Hyoid Excursion: Partial anterior movement Epiglottic Movement: Partial inversion Laryngeal Vestibule Closure at Height of Swallow: Incomplete; narrow column of air/contrast in laryngeal vestibule Pharyngeal Stripping Wave: Present - diminished Pharyngoesophageal Segment Opening: Parital distension and partial duration; parital obstruction of flow Tongue Base Retraction: Narrow column of contrast between tongue base & post. pharyngeal wall Pharyngeal Residue: Collection of residue within or on pharyngeal structures Esophageal Phase Esophageal Clearance: Esophageal retention w/ retrograde flow below pharyngoesophageal seg. (pudding) Diagnosis/Impression Diagnosis: Mild-moderate oropharyngeal dysphagia R13.12 Impression: The oral phase is primarily marked by... -Mildly decreased bolus control with premature posterior loss <1/2 of thin trials to the vallecula or posterior surface of the epiglottis. -Delayed tongue motion for A-P transport. -Prolonged, but complete mastication of cookie. The pharyngeal phase is primarily marked by... -Decreased airway closure due to decreased anterior hyoid excursion, decreased laryngeal elevation, and partial epiglottic inversion. -Mild pharyngeal residue secondary to decreased tongue base retraction, pharyngeal stripping wave, and UES opening/duration. -SILENT aspiration of thin liquids via cup with use of chin tuck. Laryngeal penetration of thin liquids by cup (effortful, cough and re-swallow, w/o strategy) that did not fully eject from the laryngeal vestibule. The esophageal phase is marked by... -Retention of pudding with min retrograde flow remaining below the UES. Liquid wash was somewhat effective in clearing esophageal retention. -Retention of cookie in the mid esophagus with liquid wash fully clearing cookie residue from the esophagus. Recommendations Diet: Regular Textures (Easy to Chew textures - IDDSI Level 7) and Watch Hill-thick Liquids Comment: Ok for ice chips after oral care between meals for patient comfort, intermittent cough and re-swallow with ice chips Compensatory Strategies: Small Bites, Small Sips, Slow Rate, Alternate bites/solids and sips/liquids (1:1 ratio), Sitting upright and Remain sitting upright for 30 minutes after PO intake Supervision: Distant Supervision Recommend Repeat Modified Barium Swallow: Yes (Repeat MBSS after 1-2 weeks of oropharyngeal exercise program) Need for Skilled Speech Therapy Services: Yes Comment: -Implement Jauregui Free Water Protocol at next level of care to promote improved hydration and quality of life. -Train the patient in use of strategies to decrease risk for aspiration. Encourage frequent oral care throughout the day. -Ongoing assessment of diet tolerance of recommended textures. Do NOT advance liquids prior to repeat MBSS due to silent aspiration of thin. -Train the patient oropharyngeal exercise program to improve airway closure, swallow onset, and pharyngeal motility (Awa, CTAR, Effortful, Samanta). Education Completed: 1. Described result of evaluation., 2. Pt understands evaluation & agrees with goals and treatment plan., 5. Patient demonstrates recommended strategies. and 7. Pt requires further education on strategies & risks. Status Active ST Patient: Active Contact Information [facility] Speech Therapy:: Criss Bell M.A. CCC-ORDER CHECKER PACKER PROCESSER? Speech-Language Pathologist?? [facility] [address]?? [place] [address]?? [email or web address]?? [phone]
--- NOTE | 2024-01-30 14:56 | CASEMGMT ---
TOAV spoke with patient a couple of times throughout the day. Patient's sister Shakila spoke with a case resolution specialist at [facility], April. Per patient she and Shakila will have to call April back together so patient can give her permission to talk with her sister. Per Shakila April seemed to think they could resolve the issue. SW also called April and left a voice mail. Once Shakila came to [facility] she also left a voice mail for April. Patient was concerned about leaving the hospital without having her insurance issue worked out. SW let her know that physician will not be able to keep patient until this is resolved. Patient was agreeable to talking and signing with hospice. Patient now wants to go home at discharge. Patient wants to see her pets. Patient stated if it does not work out then she will go to a facility. Shakila was a little worried about patient going home alone, however patient really wants to go home. TOVA called Hospice and spoke with Amanda letting them know they can set up another appt with patient to sign papers. Sue Youssef ROPE TOW OPERATOR NELY
--- NOTE | 2024-01-30 16:20 | CASEMGMT ---
TOVA received a call from April with [employer] and patient's Medicaid was reinstated. TOVA went to notify patient, but she was sleeping. TOVA called patient's sister, Shakila and left her a voice mail letting her know. April was going to fax TOVA the letter of reinstatement to TOVA. TOVA also emailed Meg with [facility] notifying her that patient's Medicaid is reinstated and that patient's plan is to discharge home with hospice. Meg asked what patient would need at home. TOVA let her know patient would definitely need O2. Sue Youssef ELECTRICAL HIGH TENSION TESTER NELY
--- NOTE | 2024-01-30 16:22 | PCM.PN.HOSP ---
Reason for Visit Reason for Visit: Worsening shortness of breath Subjective Subjective Patient is amenable to hospice even if she does better on her swallow study. She would like to follow the recommendations at discharge however despite hospice. I rediscussed things both with she and her sister and the current plan will be to try to go home with hospice and see if she can manage that if not placement will be pursued either at [facility] or a facility. Objective Data Objective Data Vital Signs: Vital Signs Temp Pulse Resp BP Pulse Ox O2 Del Method O2 Flow Rate 96.3 F L 114 H 20 H 92/42 L 94 Nasal Cannula 3 01/30/24 12:00 01/30/24 12:00 01/30/24 12:00 01/30/24 12:00 01/30/24 12:00 01/30/24 12:00 01/30/24 12:00 Oxygen Flow Rate (L/min) 3 Oxygen Delivery Method Nasal Cannula Weight: 52.6 kg Body Mass Index (BMI) 18.1 Intake & Output: Intake and Output for Last 24 Hours 01/28/24 01/29/24 01/30/24 23:59 23:59 23:59 Intake Total 450 / 930 600 / 950 830 / 830 Balance 450 / 930 600 / 950 830 / 830 Medical Nutrition Assessment Dietitian: Malnutrition Criteria Met Start: 01/25/24 12:28 Freq: Status: Active Protocol: Document 01/25/24 12:29 (Rec: 01/25/24 12:29 [id number]) Nutrition Malnutrition Evidence of Malnutrition Exists Yes Malnutrition (severe): Chronic Evidenced By Suboptimal Energy Intake ( Severe),Weight Loss (Severe) Clinical Problem Chronic Disease or Condition Related Malnutrition Etiology severe malnutrition related to inadequate energy intake d/t swallowing difficulty after radiation treatments for metastatic disease Signs/Symptoms as evidenced by unintentional wt loss of 14% < 2 months, estimated PO intake meeting < 50% of estimated energy needs < 2 months, BMI 18.1 Status Active Problem Recommendation Dietitian Recommendations/Changes recommend advance diet as tolerated to regular, texture/ consistency per SCHOOL AIDE; will add 8 oz ensure plus high protein TID w/ meals for additional nutrition if consumed given evidence of malnutrition. If unable to advance PO diet, may need to consider alternate means of nutrition, will provide further recommendations as indicated. Lab / Micro Data 01/30/24 07:00 01/30/24 07:00 Labs: Laboratory Results - last 24 hr 01/30/24 07:00: WBC 20.8 H, RBC 3.80 L, Hgb 9.0 L, Hct 30.5 L, MCV 80.3 L, MCH 23.7 L, MCHC 29.5 L, RDW Std Deviation 49.4 H, RDW Coeff of Vandana 17.1 H, Plt Count 339, MPV 9.4, Immature Gran % (Auto) 0.900, Neut % (Auto) 89.4 H, Lymph % (Auto) 4.7 L, [place] % (Auto) 4.7, Eos % (Auto) 0.2, Baso % (Auto) 0.1, Absolute Neuts (auto) 18.7 H, Absolute Lymphs (auto) 0.97, Nucleated RBC % 0, Sodium 128 L, Potassium 3.7, Chloride 95 L, Carbon Dioxide 28.0, Anion Gap 5, BUN 10, Creatinine 0.36 L, Estim Creat Clear Calc 134.54, Est GFR (MDRD) Af Amer 231, Est GFR (MDRD) Non-Af 191, BUN/Creatinine Ratio 27.4 H, Glucose 93, Calcium 8.3 L Micro: Microbiology 01/24/24 12:00 Mucosa - Nose SARS-CoV-2, Influenza & RSV (PCR) - Final Physical Exam Const alert, oriented x3 and no apparent distress; Negative for average body habitus, healthy appearing or well nourished Constitutional Narrative: Frail-appearing upper middle-aged white female, sitting up in a chair at the bedside, appears exhausted but nontoxic, pleasant and interacts appropriately General Appearance: cooperative HEENT normocephalic, head/scalp atraumatic and moist oral mucous membranes Eyes PERRL and EOMs intact bilaterally Neck no lymphadenopathy and supple Lymph Lymphatic: no lymphadenopathy noted Resp no retractions, no use of accessory muscles and clear to auscultation bilaterally Resp Narrative: Mild tachypnea, diminished on right side diffusely greater at the base and the apex, normal aeration on the left with no adventitious sounds noted Cardio regular rate, regular rhythm, S1 normal heart sound, S2 normal heart sound, no murmurs, no rub, no gallops and no clicks Cardio Narrative: Tachycardia GI normal to inspection, nondistended, normoactive bowel sounds, soft to palpation, non-tender and non-distended GI Narrative: Scaphoid abdomen Extremity normal capillary refill, no clubbing, cyanosis or edema and no calf tenderness Extremity Narrative: Decreased lean muscle mass, pedal pulses are 2+ General Extremity: no tenderness to palpation of joints or extremities Skin General Skin Exam: no breakdown Neuro oriented x3, CN's II-XII intact bilaterally, moves all extremities, no focal motor deficits, no sensory deficits noted and deep tendon reflexes 2+ bilaterally Neuro Narrative: Significant generalized weakness noted but no focal deficits Speech: speech normal Motor Exam: strength 5/5 throughout and general weakness Psych thought process normal, cooperative and affect normal Psych Narrative: Eye contact is good and patient interacts appropriately Appearance: appropriate Assessment & Plan Assessment/Plan (1) Failure to thrive: (2) Leukocytosis: (3) Chest pain: (4) Weakness: (5) Hypoxia: PLAN: Plan Acute on chronic hypoxia -At baseline patient is on 2 L nasal cannula -Remains on 3 L nasal cannula -I suspect this is her new baseline given her worsening disease -Infectious workup was unremarkable Metastatic lung CA -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 Loya -Given the lack of improvement with radiation to the chest mass Dr. Loya did indicate that hospice would be appropriate if the patient desires but if she would like to have further aggressive therapy the recommendation would be for MRI of the brain and transfer to [facility] for consideration of whole brain radiation -Patient plans on signing hospice papers either later today or tomorrow and plan is to go home with hospice to see how she tolerates being at home and taking care of herself and if she does not do well in the setting to be admitted to a facility or the [facility] Moderate oropharyngeal dysphagia -Likely related to radiation on esophagitis -Modified barium swallow showed moderate oropharyngeal dysphagia and on repeat was mild to moderate -Diet now regular textures with easy to chew and nectar thick liquids -Speech therapy continues to follow Severe malnutrition -Dietitian is following -Patient on modified diet due to dysphagia however liberalized as able -continue supplements -Likely multifactorial due to radiation esophagitis with decreased p.o. 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
[2024-01-31] VITALS (8 sets, daily range): BP systolic 91–122; BP diastolic 61–72; PULSE 107–123; RESP 18–24; TEMP 36.2–36.4; O2SAT 94–97; BMI 19.3
[2024-01-31] MEDS: Morphine 2 MG/ML Syringe IV (01:02)
[2024-01-31] MEDS: 0.9% Saline Lock 10 ML Syringe IV (01:02)
[2024-01-31] MEDS: oxyCODONE 5 MG Tablet 10 MG PO ×4 (03:46→21:51)
[2024-01-31 06:38] LABS: Absolute Neutrophil Count 16.7 X10^3/uL (2.0-7.7); Basophil# 0.04 X10^3/uL; Basophil% 0.2 % (0-1); Eosinophil# 0.05 X10^3/uL; Eosinophils% 0.3 % (0-5); Hematocrit 30.3 % (37-47); Hemoglobin 8.9 g/dL (12.0-15.0); Lymphocyte % 4.8 % (19-41); Mean Corp Hgb Conc 29.4 g/dL (32-36); Mean Corpuscular Hgb 23.5 pg (27.0-32.0); Mean Corpuscular Volume 80.2 fL (81-99); Mean Platelet Vol. 9.5 fl (6.2-12.0); Monocyte# 1.06 X10^3/uL; Monocyte% 5.6 % (0-10); NRBC Flagged by Analyzer 0 % (0-5); Neutrophil # 16.69 X10^3/uL (2.7-7.7); Neutrophil % 88.2 % (47-70); Platelet Count 341 K/mm3 (150-450); RBC Distribution Width CV 17.2 % (11.6-14.6); RBC Distribution Width SD 49.4 fl (35.1-43.9); Red Blood Count 3.78 M/mm3 (4.2-5.4); White Blood Count 18.9 K/mm3 (4.4-11.0)
[2024-01-31 06:59] LABS: Anion Gap 7 (5-15); BUN 9 mg/dL (7-18); BUN/Creat Ratio 31.4 RATIO (10-20); Chloride 94 mmol/L (98-107); Creatinine, Serum 0.29 mg/dL (0.55-1.02); EST Glomerular Filtration Rate 252 mL/min (>60); Est Glom Filt Rate - Afr Amer 305 mL/min (>60); Estimated Creatinine Clearance 177.18 ml/min; Glucose 91 mg/dL (74-106); Potassium 3.9 mmol/L (3.5-5.1); Sodium Level 128 mmol/L (136-145)
[2024-01-31] MEDS: Acetaminophen 325 MG Tablet 650 MG PO ×3 (07:05→19:20)
--- NOTE | 2024-01-31 09:04 | CASEMGMT ---
Hospice will be at [facility] today around 1p to talk with patient and her sister. Sue Youssef SENIOR ARCHITECT NELY
[2024-01-31] MEDS: Sodium Chloride 1 GM Tablet PO ×2 (09:32→21:51)
[2024-01-31] MEDS: Lidocaine 5% Patch 1 PATCH TOPICAL (09:32)
[2024-01-31] MEDS: Polyethylene Glycol 3350 17 GM PACKET PO (09:32)
[2024-01-31] MEDS: Pantoprazole Sodium 40 MG Tablet PO (09:32)
[2024-01-31] MEDS: Metoprolol Tartrate 25 MG Tablet PO ×2 (09:33→21:51)
[2024-01-31] MEDS: Enoxaparin 40 MG/0.4 ML Syringe SC (09:49)
--- NOTE | 2024-01-31 15:46 | PN.HOSP_ITS ---
Reason for Visit Reason for Visit: Worsening shortness of breath Subjective Subjective Patient reports that she is having significant pain that has worsened in the last 24 hours. At the time of my evaluation she had just received some oral oxycodone and wanted to see if that worked before she got some morphine. She is meeting with hospice today and plans on signing. I did encourage IPU since she is having uncontrolled pain issues. Objective Data Objective Data Vital Signs: Vital Signs Temp Pulse Resp BP Pulse Ox O2 Del Method O2 Flow Rate 97.5 F L 107 H 18 91/61 97 Nasal Cannula 3 01/31/24 13:06 01/31/24 13:06 01/31/24 13:06 01/31/24 13:06 01/31/24 13:06 01/31/24 13:06 01/31/24 13:06 Oxygen Flow Rate (L/min) 3 Oxygen Delivery Method Nasal Cannula Weight: 55.8 kg Body Mass Index (BMI) 19.3 Intake & Output: Intake and Output for Last 24 Hours 01/29/24 01/30/24 01/31/24 23:59 23:59 23:59 Intake Total 600 / 950 830 / 1080 610 / 610 Balance 600 / 950 830 / 1080 610 / 610 Medical Nutrition Assessment Dietitian: Malnutrition Criteria Met Start: 01/25/24 12:28 Freq: Status: Active Protocol: Document 01/25/24 12:29 (Rec: 01/25/24 12:29 [id number]) Nutrition Malnutrition Evidence of Malnutrition Exists Yes Malnutrition (severe): Chronic Evidenced By Suboptimal Energy Intake ( Severe),Weight Loss (Severe) Clinical Problem Chronic Disease or Condition Related Malnutrition Etiology severe malnutrition related to inadequate energy intake d/t swallowing difficulty after radiation treatments for metastatic disease Signs/Symptoms as evidenced by unintentional wt loss of 14% < 2 months, estimated PO intake meeting < 50% of estimated energy needs < 2 months, BMI 18.1 Status Active Problem Recommendation Dietitian Recommendations/Changes recommend advance diet as tolerated to regular, texture/ consistency per [employer]; will add 8 oz ensure plus high protein TID w/ meals for additional nutrition if consumed given evidence of malnutrition. If unable to advance PO diet, may need to consider alternate means of nutrition, will provide further recommendations as indicated. Lab / Micro Data 01/31/24 06:00 01/31/24 06:00 Labs: Laboratory Results - last 24 hr 01/31/24 06:00: WBC 18.9 H, RBC 3.78 L, Hgb 8.9 L, Hct 30.3 L, MCV 80.2 L, MCH 23.5 L, MCHC 29.4 L, RDW Std Deviation 49.4 H, RDW Coeff of Vandana 17.2 H, Plt Count 341, MPV 9.5, Immature Gran % (Auto) 0.900, Neut % (Auto) 88.2 H, Lymph % (Auto) 4.8 L, [place] % (Auto) 5.6, Eos % (Auto) 0.3, Baso % (Auto) 0.2, Absolute Neuts (auto) 16.7 H, Absolute Lymphs (auto) 0.90, Nucleated RBC % 0, Sodium 128 L, Potassium 3.9, Chloride 94 L, Carbon Dioxide 27.0, Anion Gap 7, BUN 9, Creatinine 0.29 L, Estim Creat Clear Calc 177.18, Est GFR (MDRD) Af Amer 305, Est GFR (MDRD) Non-Af 252, BUN/Creatinine Ratio 31.4 H, Glucose 91, Calcium 8.0 L Micro: Microbiology 01/24/24 12:00 Mucosa - Nose SARS-CoV-2, Influenza & RSV (PCR) - Final Physical Exam Const alert and oriented x3; Negative for no apparent distress, average body habitus, healthy appearing or well nourished Constitutional Narrative: Frail-appearing upper middle-aged white female, sitting up in bed, watching television and appears uncomfortable but not toxic General Appearance: cooperative HEENT normocephalic, head/scalp atraumatic and moist oral mucous membranes Resp normal respiratory effort, no retractions and no use of accessory muscles Resp Narrative: Diminished bilaterally right greater than left Auscultation: Negative for rales, rhonchi or wheezes Cardio regular rate, regular rhythm, S1 normal heart sound, S2 normal heart sound, no murmurs, no rub, no gallops and no clicks Cardio Narrative: Tachycardia GI normal to inspection, nondistended, normoactive bowel sounds, soft to palpation and non-tender GI Narrative: Scaphoid abdomen Extremity no clubbing, cyanosis or edema Extremity Narrative: Decreased lean muscle mass, pedal pulses are 2+ Neuro oriented x3, moves all extremities and no focal motor deficits Neuro Narrative: Significant generalized weakness noted but no focal deficits Speech: speech normal Psych affect normal Psych Narrative: Eye contact is good and patient interacts appropriately Assessment & Plan Assessment/Plan (1) Failure to thrive: (2) Leukocytosis: (3) Chest pain: (4) Weakness: (5) Hypoxia: PLAN: Plan Acute on chronic hypoxia -At baseline patient is on 2 L nasal cannula -Remains on 3 L nasal cannula -I suspect this is her new baseline given her worsening disease -Infectious workup was unremarkable Metastatic lung CA -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 Loya -Given the lack of improvement with radiation to the chest mass Dr. Loya did indicate that hospice would be appropriate if the patient desires but if she would like to have further aggressive therapy the recommendation would be for MRI of the brain and transfer to [facility] for consideration of whole brain radiation -Patient has signed with hospice and plan is for discharge to IPU tomorrow Moderate oropharyngeal dysphagia -Likely related to radiation on esophagitis -Modified barium swallow showed moderate oropharyngeal dysphagia and on repeat was mild to moderate -Diet now regular textures with easy to chew and nectar thick liquids -Speech therapy continues to follow Severe malnutrition -Dietitian is following -Patient on modified diet due to dysphagia however liberalized as able -continue supplements -Likely multifactorial due to radiation esophagitis with decreased p.o. 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 -Stable and acute component seems to be resolved -Some of the acute component may be related to some hypovolemic hyponatremia which has resolved -Continue to monitor -Continue sodium supplementation with sodium 1 g twice daily Leukocytosis -Stably elevated with Decadron Generalized weakness/debility secondary to metastatic lung CA -PT and OT are following -Awaiting goals of care discussion Chronic pain secondary above -Continue as needed pain medication DVT prophylaxis -Continue subcu Lovenox CODE STATUS -DNR CC Disposition: -Discharge to IPU tomorrow Charges/Coding Visit Charges Inpatient E&M: 50160 Subs Hosp L2
[2024-02-01] MEDS: Acetaminophen 325 MG Tablet 650 MG PO ×2 (01:44→07:53)
[2024-02-01] MEDS: oxyCODONE 5 MG Tablet 10 MG PO (03:51)
[2024-02-01 04:28] VITALS: BP 92/61; PULSE 105; RESP 18; TEMP 36.6; O2SAT 97
[2024-02-01 04:34] VITALS: BMI 19.3
[2024-02-01 06:12] LABS: Absolute Lymphocyte Count 0.69 X10^3/uL (0.83-4.51); Absolute Neutrophil Count 19.7 X10^3/uL (2.0-7.7); Basophil# 0.03 X10^3/uL; Basophil% 0.1 % (0-1); Eosinophil# 0.03 X10^3/uL; Eosinophils% 0.1 % (0-5); Hemoglobin 8.8 g/dL (12.0-15.0); Lymphocyte # 0.69 X10^3/ul (0.83-4.51); Lymphocyte % 3.2 % (19-41); Mean Corp Hgb Conc 29.3 g/dL (32-36); Mean Corpuscular Hgb 23.8 pg (27.0-32.0); Mean Corpuscular Volume 81.3 fL (81-99); Mean Platelet Vol. 9.9 fl (6.2-12.0); Monocyte# 1.01 X10^3/uL; Monocyte% 4.7 % (0-10); NRBC Flagged by Analyzer 0 % (0-5); Neutrophil # 19.67 X10^3/uL (2.7-7.7); Neutrophil % 90.8 % (47-70); Platelet Count 333 K/mm3 (150-450); RBC Distribution Width CV 17.1 % (11.6-14.6); RBC Distribution Width SD 50.6 fl (35.1-43.9); Red Blood Count 3.69 M/mm3 (4.2-5.4); White Blood Count 21.7 K/mm3 (4.4-11.0)
[2024-02-01 06:50] LABS: Anion Gap 9 (5-15); BUN 9 mg/dL (7-18); BUN/Creat Ratio 22.7 RATIO (10-20); Calcium,Total 7.8 mg/dL (8.5-10.1); Chloride 95 mmol/L (98-107); EST Glomerular Filtration Rate 173 mL/min (>60); Est Glom Filt Rate - Afr Amer 210 mL/min (>60); Estimated Creatinine Clearance 128.46 ml/min; Glucose 142 mg/dL (74-106); Potassium 3.5 mmol/L (3.5-5.1); Sodium Level 130 mmol/L (136-145)
[2024-02-01 07:59] VITALS: BP 112/67; PULSE 114; RESP 18; TEMP 36.4; O2SAT 94
[2024-02-01 09:28] VITALS: BP 112/67; PULSE 114
[2024-02-01] MEDS: Sodium Chloride 1 GM Tablet PO (09:28)
[2024-02-01] MEDS: Metoprolol Tartrate 25 MG Tablet PO (09:28)
[2024-02-01] MEDS: Pantoprazole Sodium 40 MG Tablet PO (09:28)
[2024-02-01] MEDS: Lidocaine 5% Patch 1 PATCH TOPICAL (09:29)
--- NOTE | 2024-02-01 09:39 | PCM.DC.SUM ---
Providers Date of Admission: 01/24/24 Date of Discharge: 02/01/24 Primary Care Physician: Dr. Monique Napier MD Reason For Visit: SOB, TACHYCARDIC Diagnosis Discharge Diagnosis (1) Failure to thrive: Status: Acute (2) Leukocytosis: Status: Acute Code(s): D72.829 - Elevated white blood cell count, unspecified (3) Chest pain: Status: Acute Code(s): R07.9 - Chest pain, unspecified (4) Weakness: Status: Acute Code(s): R53.1 - Weakness (5) Hypoxia: Status: Acute Code(s): R09.02 - Hypoxemia Medications at Discharge Home Medications dexamethasone 1 mg tablet 1 mg PO BID 01/24/24 lidocaine 4 % topical patch (Lidocaine Pain Relief) 1 patch topical DAILY 01/24/24 oxycodone 10 mg tablet 10 mg PO Q6H PRN PRN pain 01/24/24 sodium chloride 1,000 mg soluble tablet 1,000 mg PO BID 01/24/24 metoprolol tartrate 25 mg tablet 25 mg PO BID #0 tabs 02/01/24 Hospital Course Summary of Care Provided Minutes Spent on Discharge: 25 Hospital Course: Ms Patiño is a 63-year-old white female who presented to the emergency department at [facility] on 01/24/2024 with worsening shortness of breath. The patient is oxygen dependent at baseline and on 2 L of oxygen. She was diagnosed with lung cancer in November 2023 and completed a round of radiation to the chest at the recommendation of Dr. Loya. Upon presentation she complained of anterior bilateral chest tightness with worsening shortness of breath, exhaustion, dehydration, fatigue and decreased p.o. intake. With regards to her cancer she has known metastatic disease most notably to the brain for which she was to follow-up at [facility] for brain radiation however she not been able to make it there yet. For about the last 3 weeks prior to presentation she reported difficulty with swallowing and pain in her lower chest and sternum. She reported that she had not been eating much and indicated she was only really taking in some applesauce and food bites of food intermittently. Upon presentation she was afebrile with a temperature of 97.2, heart rate was 131, respiratory rate was 20, blood pressure was 105/67 oxygen saturations were 92% on room air. She had leukocytosis with a white count of 23.7 but had been on steroids with Decadron, chronic anemia with a hemoglobin of 10.4 that is microcytic in nature and platelet count was normal. Her chemistry panel showed hyponatremia with a sodium of 127, mild dehydration with a BUN of 19 and creatinine of 0.51 which is normal but she has very little lean muscle mass so I suspect her baseline creatinine is much lower than this. Her liver functions are unremarkable. Troponin was normal. Chest x-ray showed left para-aortic and suprahilar densities and a CT was recommended. CTA of the chest was performed and was negative for any pulmonary embolism or dissection however she did have progression of left hilar and left mediastinal masses with narrowing of the left pulmonary artery and the lower lobe branches of the pulmonary artery, severe diffuse emphysematous changes as well as bilateral metastatic adrenal masses and retroperitoneal lymphadenopathy. The mass at this time is 7.6 x 4.9 x 7.3 cm which is larger than previous on December 02, 2023 despite radiation. I had extensive discussion with Dr. Loya with regards to her overall prognosis and he indicated given that the mass is enlarging despite radiation her overall prognosis is poor and felt that hospice would indeed be appropriate. He did indicate that if she wanted continue to be aggressive he recommended obtaining an MRI of the brain and consider transferring her to [facility] for brain radiation. I had a long discussion both with the patient and her family independently of each other and together they all agree that they would like to pursue hospice at this point. Hospice evaluated the patient initially and the patient wanted to follow-up with her modified barium swallow if she would like to continue modified restrictive diet while she is living to help prevent dying from aspiration. Repeat modified barium swallow was done on 01/30/2024 which demonstrated mild to moderate oropharyngeal dysphagia and diet recommendations were regular textures with easy to chew foods and nectar thick liquids. She then signed with hospice on 01/31/2024 and was discharged to the IPU for ongoing pain concerns on 02/01/2024. Discharge diagnoses: Acute hypoxia on chronic hypoxic respiratory failure Metastatic lung CA Moderate oropharyngeal dysphagia Severe malnutrition Chronic hyponatremia secondary to SIADH Leukocytosis Generalized weakness secondary to debility related to metastatic lung cancer Chronic pain Physical Exam Const alert and oriented x3; Negative for no apparent distress, average body habitus, healthy appearing or well nourished Constitutional Narrative: Frail-appearing upper middle-aged white female, sitting up in a chair at the bedside, currently appears comfortable, does not appear toxic General Appearance: cooperative, comfortable, well kempt and frail Orientation / Consciousness: awake, oriented to person, oriented to place and oriented to time Exam Limitations: no limitations Nutritional Appearance: thin HEENT normocephalic, head/scalp atraumatic, hearing grossly normal bilaterally and moist oral mucous membranes HEENT Narrative: Mallampati 2, no thrush Resp normal respiratory effort, no retractions, no use of accessory muscles and clear to auscultation bilaterally Resp Narrative: Diminished bilaterally right greater than left Auscultation: Negative for rales, rhonchi or wheezes Cardio regular rate, regular rhythm, S1 normal heart sound, S2 normal heart sound, no murmurs, no rub, no gallops and no clicks GI normal to inspection, nondistended, normoactive bowel sounds, soft to palpation and non-tender GI Narrative: Scaphoid abdomen Extremity no clubbing, cyanosis or edema Extremity Narrative: Decreased lean muscle mass, pedal pulses are 2+ Neuro oriented x3, moves all extremities and no focal motor deficits Neuro Narrative: Significant generalized weakness noted but no focal deficits Speech: speech normal Psych thought process normal, cooperative and affect normal Psych Narrative: Eye contact is good and patient interacts appropriately Appearance: appropriate Medical Records Data Medical Nutrition Assessment Dietitian: Malnutrition Criteria Met Start: 01/25/24 12:28 Freq: Status: Active Protocol: Document 01/25/24 12:29 (Rec: 01/25/24 12:29 [id number]) Nutrition Malnutrition Evidence of Malnutrition Exists Yes Malnutrition (severe): Chronic Evidenced By Suboptimal Energy Intake ( Severe),Weight Loss (Severe) Clinical Problem Chronic Disease or Condition Related Malnutrition Etiology severe malnutrition related to inadequate energy intake d/t swallowing difficulty after radiation treatments for metastatic disease Signs/Symptoms as evidenced by unintentional wt loss of 14% < 2 months, estimated PO intake meeting < 50% of estimated energy needs < 2 months, BMI 18.1 Status Active Problem Recommendation Dietitian Recommendations/Changes recommend advance diet as tolerated to regular, texture/ consistency per [employer] HARVE[employer]; will add 8 oz ensure plus high protein TID w/ meals for additional nutrition if consumed given evidence of malnutrition. If unable to advance PO diet, may need to consider alternate means of nutrition, will provide further recommendations as indicated. Weight / BMI Weight Weight: 55.8 kg Body Mass Index (BMI) 19.3 ABG / Lab / Microbiology Data 02/01/24 04:14 02/01/24 04:14 Laboratory: Laboratory Results - last 24 hr 02/01/24 04:14: WBC 21.7 H, RBC 3.69 L, Hgb 8.8 L, Hct 30.0 L, MCV 81.3, MCH 23.8 L, MCHC 29.3 L, RDW Std Deviation 50.6 H, RDW Coeff of Vandana 17.1 H, Plt Count 333, MPV 9.9, Immature Gran % (Auto) 1.100 H, Neut % (Auto) 90.8 H, Lymph % (Auto) 3.2 L, [place] % (Auto) 4.7, Eos % (Auto) 0.1, Baso % (Auto) 0.1, Absolute Neuts (auto) 19.7 H, Absolute Lymphs (auto) 0.69 L, Nucleated RBC % 0, Sodium 130 L, Potassium 3.5, Chloride 95 L, Carbon Dioxide 26.0, Anion Gap 9, BUN 9, Creatinine 0.40 L, Estim Creat Clear Calc 128.46, Est GFR (MDRD) Af Amer 210, Est GFR (MDRD) Non-Af 173, BUN/Creatinine Ratio 22.7 H, Glucose 142 H, Calcium 7.8 L Microbiology: Microbiology 01/24/24 12:00 Mucosa - Nose SARS-CoV-2, Influenza & RSV (PCR) - Final D/C Instructions Discharge Diet: No restrictions (easy to chew and NTL) Meaningful Use Info Meaningful Use Meaningful Use Diagnoses (Choose all that apply): None applicable Ischemic Stroke Statin Dosing Therapy Reference: STATIN DOSE THERAPY REFERENCE: * Patients > 75 years receive moderate or high dose statin therapy. * Patients 75 years or YOUNGER should receive HIGH intensity statin dose unless contraindicated. You will be required to document reason for non-treatment if statin daily dose does not meet guidelines. HIGH DOSE STATIN THERAPY DAILY Atorvastatin > than or = to 40 mg Rosuvastatin > than or = to 20 mg Amlodipine + Atorvastatin > than or = to 2.5/40 mg Ezetimibe + Simvastatin 10/80 mg Simvastatin 80mg Discharge Plan Admission Admit Date/Time: 01/24/24 17:00 Primary Reason for Your Visit: Shortness of Breath Attending Provider: Sally Chaves Primary Care Provider: Monique Napier Consulting Providers: Stephen Ndiaye; Coreen Arshad Discharge Orders/Prescriptions Prescriptions: New metoprolol tartrate 25 mg Tablet 25 mg PO BID Qty: 0 0RF Continued oxycodone 10 mg tablet 10 mg PO Q6H PRN PRN (Reason: pain) lidocaine [Lidocaine Pain Relief] 4 % adhesive patch,medicated 1 patch topical DAILY dexamethasone 1 mg tablet 1 mg PO BID sodium chloride 1,000 mg tablet,soluble 1,000 mg PO BID Referrals / Follow Up: Monique Napier MD [Primary Care Provider] - Disposition Disposition (needs filled in before D/C Order can be placed): Hospice in Medical Facility Charges/Coding Visit Charges Inpatient E&M: 25771 Disch Hosp
--- NOTE | 2024-02-01 09:45 | NURSING ---
Report called to Danni TORRES at [facility]
--- NOTE | 2024-02-01 09:54 | CASEMGMT ---
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 No one at [facility] including patient was notified of the pick and shovel worker. SW asked patient if she would like SW to call her sister and patient said she would appreciate that. SW called patient's sister Shakila and left her a voice mail letting her know patient is headed over to the hospice unit as we speak. SW did leave SW's number should she have questions. Plan: d/c to [facility]. Hospice utilized their transport. Sue MCKAY
== END 2024-02-01 09:45 | disposition hospice, inpatient (51) | DRG 421 ==
LOC: ED 16:39 → PCU 17:23
PROVIDERS: Student in an Organized Health Care Education/Training Program; Admitting Provider Internal Medicine; Emergency Provider Emergency Medicine; PCP Family Medicine; Visit Provider Internal Medicine
DX: R62.7 Adult failure to thrive (principal); E43 Unspecified severe protein-calorie malnutrition; E22.2 Syndrome of inappropriate secretion of antidiuretic hormone; C79.2 Secondary malignant neoplasm of skin; C79.71 Secondary malignant neoplasm of right adrenal gland; C34.02 Malignant neoplasm of left main bronchus; D72.829 Elevated white blood cell count, unspecified; J96.11 Chronic respiratory failure with hypoxia; J44.9 Chronic obstructive pulmonary disease, unspecified; C79.31 Secondary malignant neoplasm of brain; C79.72 Secondary malignant neoplasm of left adrenal gland; D50.9 Iron deficiency anemia, unspecified; E86.0 Dehydration; K20.80 Other esophagitis without bleeding; E87.6 Hypokalemia; Y84.2 Radiological procedure and radiotherapy as the cause of abnormal reaction of the patient, or of later complication, without mention of misadventure at the time of the procedure; R53.81 Other malaise; Z74.09 Other reduced mobility; R59.0 Localized enlarged lymph nodes; Z68.1 Body mass index [BMI] 19.9 or less, adult; Z99.81 Dependence on supplemental oxygen; R13.12 Dysphagia, oropharyngeal phase; G89.29 Other chronic pain; Z79.891 Long term (current) use of opiate analgesic; Z92.3 Personal history of irradiation
CPT/HCPCS: 36415; 71045; 71275; 74230; 80048; 80076; 81001; 83735; 84100; 84484; 85025; 87631; 92507; 92526; 92610; 92611; 93005; 93306; 94668; 97110; 97162; 97166; 97530; 97535; 97802; 99285; J7030; J7040; Q9967; A4216

== ENCOUNTER 2024-03-05 16:27 | Emergency (ER) | payer MEDICAID, SELFPAY ==
[2024-03-05 16:28] VITALS: BP 152/90; PULSE 99; RESP 16; TEMP 36.3; O2SAT 93; BMI 22.4
--- NOTE | 2024-03-05 16:49 | ED.VIS.FALL ---
HPI HPI - Fall History of Present Illness Chief Complaint: Fall Informant: patient Occured/Mechanism Occurred: Today Fall down steps #: 1 Usually ambulates: Without assistance Pain/Injury Pain Location: lower extremity (Left hip, thigh, and knee) Quality of Pain: Stabbing Worsened by: Weightbearing Relieved by: Nothing Associated Symptoms Associated Symptoms: Positive for Inability to ambulate; Negative for Parasthesias, Weakness, Loss of function or Loss of consciousness Narrative Narrative: Patient presents with pain in her left hip, thigh, and knee that began after a fall today. Patient states she missed a step and fell onto the ground. Patient denies any head injury or loss of consciousness. Patient states she was unable to ambulate after the fall. Patient states her pain is mainly over the medial aspect of her left thigh and knee. Patient also admits to some pain over the anterior aspect of her left hip. Patient denies any paresthesias or weakness. Patient states her pain is worse with any attempt at weightbearing. Patient denies any other injuries. [facility] Medical History Lung cancer Acute otitis externa of left ear Scabies Encounter for screening for COVID-19 Acute sinusitis, unspecified URI (upper respiratory infection) Diarrhea Severe headache Hay fever Fatigue Home Medications ?Medication ?Instructions ?Recorded ?Last Taken ?Type dexamethasone 1 mg tablet 1 mg PO BID 01/24/24 Unknown History lidocaine 4 % topical patch 1 patch topical DAILY 01/24/24 Unknown History (Lidocaine Pain Relief) oxycodone 10 mg tablet 10 mg PO Q6H PRN PRN pain 01/24/24 Unknown History sodium chloride 1,000 mg soluble 1,000 mg PO BID 01/24/24 Unknown History tablet metoprolol tartrate 25 mg tablet 25 mg PO BID #0 tabs 02/01/24 Unknown Rx Allergy/AdvReac Type Severity Reaction Status Date / Time cefadroxil (From Duricef) Allergy Shortness Verified 01/24/24 11:16 of breath latex Allergy Rash Verified 01/24/24 11:16 Penicillins Allergy Swelling Verified 01/24/24 11:16 doxycycline AdvReac Mild Nausea Verified 01/24/24 11:16 Surgical History History of sinus surgery Social History household members: none Smoking Status: Former smoker alcohol intake: never ROS ROS ED Constitutional Constitutional ED: Denies chills or fever(s) Eyes Eyes: Denies blurry vision or change in vision ENT ENT ED: Denies rhinorrhea or sore throat Cardiovascular Cardiovascular: Denies chest pain or palpitations Respiratory/Chest Respiratory/Chest: Denies cough or dyspnea Gastrointestinal Gastrointestinal: Denies nausea or vomiting Genitourinary Genitourinary ED: Denies dysuria or hematuria Musculoskeletal Musculoskeletal: Denies back pain or neck pain Integumentary Denies abscess or rash Neurologic Neurologic: Denies headache(s) or weakness Allergic/Immunologic Allergic/Immunologic ED: Denies mouth swelling or urticaria EXAM Physical Exam Const Vital Signs: 03/05/24 16:28 03/05/24 16:31 03/05/24 18:31 Temperature 97.3 F L Temperature Source Temporal Pulse Rate 99 108 H Respiratory Rate 16 17 Respiratory Effort Normal Respiratory Depth Normal Respiratory Pattern Normal Blood Pressure 152/90 H 173/98 H Blood Pressure Mean 110 123 Pulse Ox 93 94 Oxygen Delivery Method Nasal Cannula Nasal Cannula Oxygen Flow Rate (L/min) 3 3 03/05/24 20:00 03/05/24 22:00 03/06/24 00:00 Temperature Temperature Source Pulse Rate 95 92 97 Respiratory Rate 20 H 16 14 Respiratory Effort Respiratory Depth Respiratory Pattern Blood Pressure 173/94 H 139/59 H 164/78 H Blood Pressure Mean 120 85 106 Pulse Ox 93 98 97 Oxygen Delivery Method Nasal Cannula Room Air Nasal Cannula Oxygen Flow Rate (L/min) 3 3 Positive well nourished and well developed General Appearance ED: well developed and NAD HEENT Reports normocephalic atraumatic Neck full ROM and supple Extremity Extremity Narrative: There is tenderness over the medial aspect of the left thigh. There is mild tenderness over the anterior aspect of the left hip. There is no pain with internal/external rotation of the left lower extremity. There is mild tenderness over the medial aspect of the left knee. There is no obvious deformity noted. Pedal pulses are equal bilaterally. Sensation is intact to light touch bilaterally in lower extremities. There is 2+ edema of the lower extremities from the knee distally. Strength is 5/5 bilaterally in the lower extremities. Neuro oriented x3, CN's II-XII intact bilaterally, moves all extremities, no focal motor deficits and no sensory deficits noted Cipriano Coma Scale: document GCS findings Spontaneous Obeys Commands Oriented 15 Sensorium / Orientation: alert Motor Exam: strength 5/5 throughout MDM MDM MDM Narrative Medical decision making narrative: Differential diagnosis includes hip fracture, muscle strain, contusion, and knee sprain. X-rays of the left hip will be obtained to assess for fracture. X-rays of the left knee will be obtained to assess for fracture and dislocation. Radiography Diagnostic Testing: Clinical Impression(s) from Imaging Studies Hip/Pelvis X-Ray 03/05/24 17:28 IMPRESSION: Normal x-ray examination of the pelvis and hip. Electronically Signed: Dennis Castellano MD at 17:56 EDT , Knee X-Ray 03/05/24 17:28 IMPRESSION: Mild degenerative changes. No acute fracture or other significant bony pathology Electronically Signed: Dennis Castellano MD at 17:57 EDT , X-rays of the left knee were obtained. There are 4 views. On my independent interpretation, there is no acute fracture or dislocation noted. There are some degenerative changes noted. Radiologist also interpreted the x-rays and agrees. X-rays of the left hip were obtained. There are 3 views. On my independent interpretation, there is no acute fracture or dislocation noted. There is no fracture of the superior or inferior pubic rami. Radiologist also interpreted the x-rays and agrees. Management Discussion w/another healthcare provider: Hospitalist Treatment and Re-Evaluation Narrative: Patient was given a dose of oral morphine here. Patient was advised of her findings. Patient attempted ambulation with a walker but was unsteady on her feet. Patient does not feel like she is safe at home. Case was discussed with the hospitalist for admission. He noted that the patient was in hospice. Case was discussed with hospitalist. They will be out to evaluate the patient to see if the patient can go to their inpatient hospice unit. Hospice nurse evaluated the patient and the patient will be transferred to the inpatient hospice unit. Patient understood and was agreeable with the plan. All questions were answered. Discharge Plan Triage Chief Complaint: Fall ED Provider: Anatoliy Sotelo Dx/Rx/DC Orders Clinical Impression: Muscle strain of left thigh, Muscle strain of left hip, Fall, Unsteady gait Prescriptions: No Action oxycodone 10 mg tablet 10 mg PO Q6H PRN PRN (Reason: pain) lidocaine [Lidocaine Pain Relief] 4 % adhesive patch,medicated 1 patch topical DAILY dexamethasone 1 mg tablet 1 mg PO BID sodium chloride 1,000 mg tablet,soluble 1,000 mg PO BID metoprolol tartrate 25 mg Tablet 25 mg PO BID Qty: 0 0RF Primary Care Provider: Monique Napier Referrals: Monique Napier MD [Primary Care Provider] - Print Language: [place]an Disposition Disposition: Hospice in Medical Facility Discharge Location: [facility]
--- NOTE | 2024-03-05 17:28 | RAD_ITS ---
STUDY: X-RAY - LEFT KNEE REASON FOR EXAM: Female, 63 years old. Injury/Pain TECHNIQUE: 4 view(s) of the knee. COMPARISON: None. FINDINGS: Normal visualized distal femur. Normal visualized proximal tibia and fibula. Normal proximal tibiofibular articulation. Mildly narrowed medial femorotibial compartment. Normal lateral femorotibial compartment. Normal patellofemoral articulation. The soft tissue structures are unremarkable. RAD/Knee 4 or More Views IMPRESSION: Mild degenerative changes. No acute fracture or other significant bony pathology Electronically Signed: Dennis Castellano MD at 17:57 EDT Reading Location ID and State: [address] [place] [address] Tel , Service support ,
--- NOTE | 2024-03-05 17:28 | RAD_ITS ---
STUDY: X-RAY - PELVIS AND LEFT HIP REASON FOR EXAM: Female, 63 years old. Injury/Pain TECHNIQUE: 3 views of the pelvis and hip. COMPARISON: None. FINDINGS: There is a non-specific bowel gas pattern. Normal visualized soft tissue structures. Normal bilateral iliac wings, sacroiliac joints and visualized sacrum. Normal bilateral superior and inferior pubic rami. Normal pubic symphysis. Normal bilateral ischial tuberosities. Normal visualized femoral head. Normal acetabulum. Normal hip joint. RAD/HIP, UNI W/ Pelvis 2-3 Views IMPRESSION: Normal x-ray examination of the pelvis and hip. Electronically Signed: Dennis Castellano MD at 17:56 EDT ,
[2024-03-05] MEDS: morphine (oral solution) 10MG/0.5ML Syringe 4 MG SL (17:39)
[2024-03-05 18:31] VITALS: BP 173/98; PULSE 108; RESP 17; O2SAT 94
[2024-03-05 20:00] VITALS: BP 173/94; PULSE 95; RESP 20; O2SAT 93
[2024-03-05 22:00] VITALS: BP 139/59; PULSE 92; RESP 16; O2SAT 98
[2024-03-06] VITALS: BP 164/78; PULSE 97; RESP 14; O2SAT 97
[2024-03-06 01:32] VITALS: BP 132/64; PULSE 97; RESP 17; TEMP 36.4; O2SAT 95
== END 2024-03-06 01:38 | disposition hospice, inpatient (51) ==
PROVIDERS: Emergency Provider Emergency Medicine; PCP Family Medicine; Visit Provider Emergency Medicine
DX: S76.012A Strain of muscle, fascia and tendon of left hip, initial encounter (principal); Z87.891 Personal history of nicotine dependence; R26.81 Unsteadiness on feet; W10.9XXA Fall (on) (from) unspecified stairs and steps, initial encounter
CPT/HCPCS: 73502; 73564; 96372; 99282